=== PATIENT | male | born 1945 | race Caucasian/White ===

== ENCOUNTER 2023-08-24 11:08 | Outpatient (RCR) | payer MEDICARE, OTHER, SELFPAY | END 2023-08-24 14:15 | disposition home or self-care (01) | LOC: RPT 11:08 | PROVIDERS: ATTENDING PHYSICIAN Physician Assistant Medical; FAMILY PHYSICIAN Family Medicine | DX: I89.0 Lymphedema, not elsewhere classified (principal); C43.9 Malignant melanoma of skin, unspecified; C78.7 Secondary malignant neoplasm of liver and intrahepatic bile duct; Z92.3 Personal history of irradiation | CPT/HCPCS: 97162; 97535 ==

== ENCOUNTER 2024-01-19 08:22 | Emergency (ER) | payer MEDICARE, OTHER, SELFPAY ==
[2024-01-19 08:34] VITALS: BP 129/69
--- NOTE | 2024-01-19 08:37 | ED.PDOC.TR ---
ED Provider Triage
-
Patient seen by provider in Triage?: Seen in Triage
78 y/o male with intermittent left anterior lower leg pain since 4am. Describes sensation of pulsating pain happening every minute or so. No history of similar. No trauma. Denies color change, numbness/paresthesia, weakness/motor dysfunction or
claudication
Duplex US ordered
--- NOTE | 2024-01-19 11:21 | ED.GENMED ---
History of Present Illness
<Elsa Albarran PA-C - Last Filed: 01/19/24 13:19>
General
Chief Complaint: Extremity Pain (non-traumatic)
Source: patient
Time Seen by Provider: 01/19/24 11:19
Nursing documentation reviewed up to this point in time: agreed with
Travel History
Have you had any contact with someone who has COVID-19?: No
Do you have any symptoms of coronavirus? Fever > 100 degrees, chills, cough, shortness of breath, sore throat, loss of taste or smell, muscle aches, or headache?: No
History of Present Illness
History of Present Illness:
78-year-old male with a past medical history of melanoma 6 years in remission, hypertension, hyperlipidemia presenting emergency department today with concerns of burning to his left lateral calf that started at 4 AM this morning. Patient states
that the burning started randomly and he is feeling woke up this morning and could not get back to bed. Patient states that the pain will come and go randomly. Patient states that when it comes, it will last for few seconds and go away. Patient
states it is not worse with walking. Patient denies any numbness or tingling. Patient denies any falls. Patient denies any lightheadedness, chest pain, shortness of breath. Patient denies any swelling in his legs. Patient denies any rashes.
Patient denies any trauma to the area, patient denies any bug bites. Patient denies any long distance travel.
Past History
<Elsa Albarran PA-C - Last Filed: 01/19/24 13:19>
Past History
ED Past Medical History: Cancer (melanoma, prostate), HTN, Hypercholesterolemia, Hypothyroidism and Other (OA, adrenal insufficiency)
ED Past Surgical History: Orthopedic (Bilateral hip replacements), Urological (Radiation for prostate cancer 1997) and Other (Right chest wall as well as right arm lymph node resection for melanoma)
Social History
Tobacco: Non-smoker
Alcohol: None
Drug: None
Personal:
Living: with family
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
Family History
Family History: Other (Noncontributory)
Review of Systems
<Elsa Albarran PA-C - Last Filed: 01/19/24 13:19>
Review of Systems
All Other Systems: ROS reviewed and negative except as documented in HPI and ROS
Phy Exam
<Elsa Albarran PA-C - Last Filed: 01/19/24 13:19>
Physical Exam
Physical Exam:
General: Patient is well appearing and in no acute distress; non-toxic
Skin: Warm and dry, multiple scattered excoriations noted to bilateral extremities, patient states these are chronic
Head: Normocephalic, atraumatic
Eyes: Sclera non-icteric. EOMs intact. PERRLA.
Cardiac: Regular rate and rhythm, no murmurs
Peripheral Vascular: No lower extremity swelling or edema. No lower extremity erythema. 2+ dorsalis pedis and posterior tibial pulses b/l.
Pulm: Normal respiratory effort, no wheezes, rales, or rhonchi.
Musculoskeletal: No bony tenderness to b/l lower extremities. Full ROM of b/l lower extremities.
Neuro: CN II-XII intact, no focal neurologic deficits. 5/5 strength in b/l lower extremities.
Psychiatric: Appropriate mood and affect.
Course
<Elsa Albarran PA-C - Last Filed: 01/19/24 13:19>
Orders/Labs/Results
Orders:
Orders
01/19/24 08:39
US Periph Venous LOWER Ext Marino Urgent
Reason For Exam: LT CALF EDEMA
Vital Signs
Initial and Last Documented VS:
Initial Vital Signs
Temp Pulse Resp BP Pulse Ox
97.6 F 88 16 129/69 98
01/19/24 08:34 01/19/24 08:34 01/19/24 08:34 01/19/24 08:34 01/19/24 08:34
Last Documented Vital Signs
Temp Pulse Resp BP Pulse Ox
97.6 F 88 16 129/69 98
01/19/24 08:34 01/19/24 08:34 01/19/24 08:34 01/19/24 08:34 01/19/24 08:34
<Kirk Beckman DO - Last Filed: 01/19/24 12:06>
Orders/Labs/Results
Orders:
Orders
01/19/24 08:39
US Periph Venous LOWER Ext Marino Urgent
Reason For Exam: LT CALF EDEMA
Vital Signs
Initial and Last Documented VS:
Initial Vital Signs
Temp Pulse Resp BP Pulse Ox
97.6 F 88 16 129/69 98
01/19/24 08:34 01/19/24 08:34 01/19/24 08:34 01/19/24 08:34 01/19/24 08:34
Last Documented Vital Signs
Temp Pulse Resp BP Pulse Ox
97.6 F 88 16 129/69 98
01/19/24 08:34 01/19/24 08:34 01/19/24 08:34 01/19/24 08:34 01/19/24 08:34
<Elsa Albarran PA-C - Last Filed: 01/19/24 13:19>
MDM/Problems Addressed
Differential Diagnosis Includes:
Musculoskeletal sprain/strain, superficial phlebitis, DVT, restless leg syndrome, neuropathy
MDM/Problems Addressed:
leg pain
Chronic conditions affecting care:
prostate cancer, melanoma, HTN, HLP
<YAIMA Bhagat Last Filed: 01/19/24 13:19>
*Pulse Oximetry
Patient hypoxic: no
*Critical Care Note
Total Time (30-74mins, 75-104mins- exclusive of procedures): Not Applicable
Data Reviewed
Review of Other/Old Records Reveals: Records (reviewed ER physician documentation form 01/07/2023) and Discharge Summary (reviewed discharge summary from 01/10/2023)
Source: patient and records
<Elsa Albarran PA-C - Last Filed: 01/19/24 13:19>
Patient Management
Escalation/DeEscalation of care consider admission/obs:
78-year-old male with a past medical history of melanoma 6 years in remission, hypertension, hyperlipidemia presenting emergency department today with concerns of burning to his left lateral calf that started at 4 AM this morning. The pain will
come randomly last few seconds and go away. Patient states that there is nothing that makes it worse. Patient denies weakness of the lower extremities, claudication, rashes. DVT study negative. Will offer patient gabapentin to see if this
improves for possible restless leg syndrome or neuropathy. Patient in agreement with plan. Patient stable for discharge, patient will follow-up with his primary care provider.
ED Attending Note
<Elsa Albarran PA-C - Last Filed: 01/19/24 13:19>
-
Portions of this chart may have been created with voice recognition software.� Occasional wrong word or��sound alike� substitutions may have occurred due to the inherent limitations of voice recognition software.
<Kirk Beckman DO - Last Filed: 01/19/24 12:06>
ED Attending Note
Patient seen and examined by attending physician: Yes
I performed the substantive portion of visit, reviewed & personally made and approve the management plan that is documented in note by myself or TONA.: Yes
I performed a history and physical exam of patient and discussed management with resident, I reviewed resident's note and agree with documented findings and plan of care.: Yes
ED Attending Note:
I have seen and evaluated the patient with a [id number] encounter. I have spoken to the advance practicer provider and involved in the medical history, the physical exam, medical decision making.
Evaluation and management service: agree unless noted differently below.
Results interpretation: agree unless noted differently below.
Focused HPI: 78-year-old male presenting with intermittent burning sensation to his left lower lateral leg.
Physical exam: Sitting in bed comfortably. No tenderness to deep venous palpation. Distal extremity neurovascular intact
Medical Decision Making: Ultrasound ordered to rule out DVT. Discussed possible neuropathy. Will consider gabapentin if ultrasound negative
Discharge Plan
Departure
Patient Disposition: Home (Routine Discharge)
Date of Disposition: 01/19/24
Time of Disposition: 12:56
Patient with high blood pressure during this ER visit?: Yes
Condition: Good
Discharge Problem:
Leg pain, left
Instructions: Muscle and Bone Pain (DC), Restless Legs Syndrome (DC), BLOOD PRESSURE
Prescriptions:
New
gabapentin 100 mg capsule
100 mg PO HS Qty: 14 0RF
No Action
levothyroxine 50 mcg tablet
50 mcg PO DAILY AT 0700
hydrocortisone 10 mg tablet
20 mg PO DAILY
rosuvastatin 40 mg tablet
40 mg PO QPM
febuxostat 40 mg tablet
40 mg PO DAILY
hydrocortisone 10 mg Tablet
10 mg PO QPM
loratadine [Allerclear] 10 mg Tablet
10 mg PO DAILY
Referrals:
Ryan Peguero MD [Family Provider] -
Activity Restrictions/Additional Instructions:
We have sent a medication called gabapentin to your pharmacy. You can take one 100 mg tablet at night two hours before bedtime. You can increase dose to two tablets two hours before bedtime should you not have relief. Please follow up with your
primary care provider in one week to reassess your symptoms.
Please return to the emergency department should you develop an acute worsening of your symptoms, shortness of breath, chest pain, syncopal episodes, or any other concerning signs of symptoms.
Interventions
Interventions:
*Risk Screen - Suicide Last Done: 01/19/24 11:40
*Neglect/Abuse Screening Last Done: 01/19/24 11:40
*ED COVID-19 Vaccine History Last Done: 01/19/24 08:37
ED-Skin Assessment Last Done: 01/19/24 11:40
ED-Peripheral Vascular Assessment Last Done: 01/19/24 11:40
ED-Musculoskeletal Assessment Last Done: 01/19/24 11:40
Discharge Date and Time
Print Language: INDIAN
[2024-01-19 11:40] VITALS: BMI 30.5
[2024-01-19 13:22] VITALS: BP 138/72
== END 2024-01-19 13:23 | disposition home or self-care (01) ==
LOC: EMR 08:22
PROVIDERS: EMERGENCY PHYSICIAN Student in an Organized Health Care Education/Training Program; FAMILY PHYSICIAN Family Medicine
DX: M79.605 Pain in left leg (principal); R20.8 Other disturbances of skin sensation; Z85.820 Personal history of malignant melanoma of skin; I10 Essential (primary) hypertension; E78.00 Pure hypercholesterolemia, unspecified; Z85.46 Personal history of malignant neoplasm of prostate; E03.9 Hypothyroidism, unspecified; M19.90 Unspecified osteoarthritis, unspecified site; E27.40 Unspecified adrenocortical insufficiency; Z96.643 Presence of artificial hip joint, bilateral; Z92.3 Personal history of irradiation; Z88.5 Allergy status to narcotic agent; Z88.8 Allergy status to other drugs, medicaments and biological substances
CPT/HCPCS: 99284; 93970

== ENCOUNTER 2024-01-26 09:05 | Outpatient (RCR) | payer MEDICARE, OTHER, SELFPAY | END 2024-01-27 06:34 | disposition home or self-care (01) | LOC: RPT 09:05 | PROVIDERS: ATTENDING PHYSICIAN Internal Medicine Medical Oncology; FAMILY PHYSICIAN Family Medicine | DX: I89.0 Lymphedema, not elsewhere classified (principal); C43.9 Malignant melanoma of skin, unspecified | CPT/HCPCS: 97163; 97535 ==

== ENCOUNTER 2024-01-28 11:46 | Emergency (ER) | payer MEDICARE, OTHER, SELFPAY ==
[2024-01-28 11:58] VITALS: BP 128/75
--- NOTE | 2024-01-28 14:11 | ED.GENMED ---
History of Present Illness
General
Chief Complaint: Musculo-Skeletal Complaint
Source: patient
Exam Limitations: none
Time Seen by Provider: 01/28/24 13:39
Nursing documentation reviewed up to this point in time: agreed with
Travel History
Have you had any contact with someone who has COVID-19?: No
Do you have any symptoms of coronavirus? Fever > 100 degrees, chills, cough, shortness of breath, sore throat, loss of taste or smell, muscle aches, or headache?: No
History of Present Illness
History of Present Illness:
Patient is a 78-year-old male with history of melanoma hypertension hyperlipidemia who presented to the ER complaining of right knee pain. He reports he was standing today and he had pain behind his right knee. He denies any injury. He was seen
here last week for left leg pain.
He denies any swelling denies any back pain denies a history of sciatica.
Past History
Past History
ED Past Medical History: Cancer (melanoma, prostate), HTN, Hypercholesterolemia, Hypothyroidism and Other (OA, adrenal insufficiency)
ED Past Surgical History: Orthopedic (Bilateral hip replacements), Urological (Radiation for prostate cancer 1997) and Other (Right chest wall as well as right arm lymph node resection for melanoma)
Social History
Tobacco: Non-smoker
Alcohol: None
Drug: None
Personal:
Living: with family
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
Family History
Family History: Other (Noncontributory)
Review of Systems
Review of Systems
Allergies reviewed?: Yes
All Other Systems: ROS reviewed and negative except as documented in HPI and ROS
Constitutional: Reports no symptoms; Denies fever, fatigue or chills
Cardiac: Reports no symptoms
ABD/GI: Reports no symptoms
Musculoskeletal: Reports other (pain behind right knee )
Skin: Reports no symptoms
Psychiatric: Reports no symptoms
Phy Exam
General Physical Exam
General Presentation: no apparent distress
General age: appears stated age
General Skin: warm and dry
General Habitus: normal
General Mental: alert
General Hydration: appears well hydrated
Neurological Exam
Neurological Exam: alert and oriented x3
Musculoskeletal Exam
Musculoskeletal Exam: other (Right lower extremity strong pulses no obvious effusion but right knee appears more swollen than left however good flexion extension no calf tenderness or swelling strong distal pulses normal distal sensation)
Skin Exam
Skin Exam: normal color and warm/dry
Psychiatric Exam
Psychiatric Exam: normal mood/affect
Course
Orders/Labs/Results
Orders:
Orders
01/28/24 12:02
US Legs, Right [US Periph Venous LOWER Ext RT] Urgent
Comment:
Reason For Exam: pain
01/28/24 12:04
Knee, Right 4 or More Views [CR Knee- Right 4 Or More View*] Urgent
Comment:
Reason For Exam: pain
Vital Signs
Initial and Last Documented VS:
Initial Vital Signs
Temp Pulse Resp BP Pulse Ox
98.4 F 87 16 128/75 97
01/28/24 11:58 01/28/24 11:58 01/28/24 11:58 01/28/24 11:58 01/28/24 11:58
Last Documented Vital Signs
Temp Pulse Resp BP Pulse Ox
98.4 F 87 16 128/75 97
01/28/24 11:58 01/28/24 11:58 01/28/24 11:58 01/28/24 11:58 01/28/24 11:58
MDM/Problems Addressed
Differential Diagnosis Includes:
Not limited to knee pain, DVT, arthritis
MDM/Problems Addressed:
Patient has severe osteoarthritic changes in right knee from prior knee film. no acute ultrasound findings. patient in no acute distress likely arthritis will dc with outpt ortho f/u . pt has cane . Stable with weight bearing.
Chronic conditions affecting care:
arthritis
*Radiology
Radiology exam reviewed: radiology read reviewed
*Pulse Oximetry
Patient hypoxic: no
*Critical Care Note
Total Time (30-74mins, 75-104mins- exclusive of procedures): Not Applicable
ED Attending Note
-
Portions of this chart may have been created with voice recognition software.� Occasional wrong word or��sound alike� substitutions may have occurred due to the inherent limitations of voice recognition software.
Discharge Plan
Departure
Patient Disposition: Home (Routine Discharge)
Date of Disposition: 01/28/24
Time of Disposition: 15:46
Patient with high blood pressure during this ER visit?: No
Covid-19: Not Applicable
Discharge Problem:
knee pain, Arthritis
Instructions: Knee Pain ED
Prescriptions:
No Action
levothyroxine 50 mcg tablet
50 mcg PO DAILY AT 0700
hydrocortisone 10 mg tablet
20 mg PO DAILY
rosuvastatin 40 mg tablet
40 mg PO QPM
febuxostat 40 mg tablet
40 mg PO DAILY
hydrocortisone 10 mg Tablet
10 mg PO QPM
loratadine [Allerclear] 10 mg Tablet
10 mg PO DAILY
gabapentin 100 mg capsule
100 mg PO HS Qty: 14 0RF
Referrals:
Ryan Peguero MD [Family Provider] -
Han Sin MD [Active] -
Activity Restrictions/Additional Instructions:
Tylenol for discomfort. Follow-up with orthopedics as discussed and return if any worsening of symptoms.
Interventions
Interventions:
*ED COVID-19 Vaccine History Last Done: 01/28/24 11:58
Discharge Date and Time
Print Language: ROMANIAN
== END 2024-01-28 16:26 | disposition home or self-care (01) ==
LOC: EMR 11:46
PROVIDERS: EMERGENCY PHYSICIAN Emergency Medicine; FAMILY PHYSICIAN Family Medicine
DX: M79.604 Pain in right leg (principal); M17.11 Unilateral primary osteoarthritis, right knee; I10 Essential (primary) hypertension; E78.5 Hyperlipidemia, unspecified; E27.40 Unspecified adrenocortical insufficiency; Z85.820 Personal history of malignant melanoma of skin; Z85.46 Personal history of malignant neoplasm of prostate; Z92.3 Personal history of irradiation
CPT/HCPCS: 99284; 73564; 93971

== ENCOUNTER 2024-04-11 11:08 | Outpatient (RCR) | payer MEDICARE, OTHER, SELFPAY | END 2024-04-11 23:59 | disposition home or self-care (01) | LOC: RPT 11:08 | PROVIDERS: ATTENDING PHYSICIAN Internal Medicine Medical Oncology; FAMILY PHYSICIAN Family Medicine | DX: I89.0 Lymphedema, not elsewhere classified (principal) | CPT/HCPCS: 97161; 97535; 97760 ==

== ENCOUNTER 2024-05-20 23:00 | Emergency (ER) | payer MEDICARE, OTHER, SELFPAY ==
[2024-05-20 23:09] VITALS: BP 90/68; BMI 29.8
[2024-05-20 23:18] VITALS: BP 96/68
[2024-05-20] MEDS: NSS 1000 IV (23:22)
[2024-05-20 23:29] LABS: % Basophils 0.9 % (0-2); % Immature Granulocytes 1.1 % (0-0.5); % Lymphocytes 27.6 % (20.5-51.1); % Monocytes 11.1 % (1.7-9.3); % Neutrophils 55.3 % (42.2-75.2); Absolute Basophils 0.1 10^3/uL (0-0.2); Absolute Eosinophils 0.3 10^3/uL (0-0.7); Absolute Immature Granulocytes 0.1 10^3/uL (0-0.05); Absolute Lymphocytes 2.2 10^3/uL (1.2-3.4); Absolute Monocytes 0.9 10^3/uL (0.1-0.6); Absolute Neutrophils 4.4 10^3/uL (1.4-6.5); Hematocrit 42.9 % (39.0-52.0); Hemoglobin 14.8 g/dL (13.0-18.0); Mean Corp Hgb Conc. 34.5 g/dL (33.0-37.0); Mean Corpuscular Hgb 30.3 pg (27.0-31.0); Mean Corpuscular Volume 87.7 fL (80.0-94.0); Mean Platelet Volume 8.1 fL (7.4-10.4); Nucleated Red Blood Cells % 0 % (-); Platelet Count 187 10^3/uL (130-400); Red Blood Cell Count 4.89 10^6/uL (4.70-6.10); Red Cell Dist. Width 14.3 % (11.5-14.5); White Blood Cell Count 7.9 10^3/uL (4.8-10.8)
[2024-05-20] MEDS: CORDARONE 103 MG IV (23:31)
[2024-05-20 23:38] VITALS: BP 87/60
[2024-05-20 23:45] LABS: AST (SGOT) 31 U/L (17-59); Albumin 4.5 g/dl (3.5-5.0); Alkaline Phosphatase 93 U/L (38-126); Blood Urea Nitrogen 11 mg/dl (9-20); Carbon Dioxide 15 mmol/L (22-30); Chloride 100 mmol/L (98-107); Estimated Creatinine Clearance 51 ml/min; Glucose 131 mg/dl (70-99); Potassium 3.7 mmol/L (3.5-5.1); Sodium 133 mmol/L (135-145); Total Bilirubin 0.5 mg/dl (0.2-1.3); Total Protein 6.5 g/dl (6.3-8.2); eGFR 55.88
[2024-05-20 23:49] LABS: INR 1.07; PT 13.7 Sec (11.4-14.6); Troponin I 0.016 ng/ml
[2024-05-20 23:50] LABS: APTT 31.3 Sec (23.4-35.0)
[2024-05-20 23:56] LABS: ALT (SGPT) 20 U/L (0-50); Calcium 9.4 mg/dl (8.4-10.2)
[2024-05-21] VITALS (15 sets, daily range): BP systolic 83–118; BP diastolic 56–86
--- NOTE | 2024-05-21 01:22 | ED.GENMED ---
History of Present Illness
General
Chief Complaint: Dizziness
Time Seen by Provider: 05/20/24 23:08
Past History
Past History
ED Past Medical History: Cancer (melanoma, prostate), HTN, Hypercholesterolemia, Hypothyroidism and Other (OA, adrenal insufficiency)
ED Past Surgical History: Orthopedic (Bilateral hip replacements), Urological (Radiation for prostate cancer 1997) and Other (Right chest wall as well as right arm lymph node resection for melanoma)
Social History
Tobacco: Non-smoker
Alcohol: None
Drug: None
Personal:
Living: with family
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
Family History
Family History: Other (Noncontributory)
Course
Orders/Labs/Results
Orders:
Orders
05/20/24 23:01
Electrocardiogram (*1) Urgent
Reason for Study: Fatigue / Weakness
EKG- Treatment ONCE
05/20/24 23:15
Cardiac Monitoring- Treatment ONCE
0.9% Sodium Chloride 1000 ml [Nss] 1,000 ml IV BOLUS
05/20/24 23:20
Complete Blood Count/With Diff Urgent
Comprehensive Metabolic Panel Urgent
PTT Urgent
Prothrombin Time Urgent
Troponin I Urgent
05/20/24 23:25
Amiodarone [Cordarone] 150 mg Dextrose 5%/Water 100 ml [D5w] 100 ml IV NOW
05/21/24 00:01
CT Chest Pe Study Urgent
Reason For Exam: tachy, hx of lung ca
05/21/24 00:30
Amiodarone [Cordarone] 900 mg DEXTROSE 5% PVC-free BAG [D5W PVC-free BAG] 500 ml IV PER PROTOCOL
Initial Dose in mg/min:: 1
Duration of initial dose (hours):: 6
Subsequent dose in mg/min:: 0.5
Duration of subsequent dose (hours):: 18
Maximum dose in mg/min:: 1
Hold and notify provider if:: Heart rate < 60 BPM or SBP < 90 mmHg or MAP < 60 mmHg
05/21/24 01:27
Electrocardiogram (*1) Urgent
Reason for Study: Palpitations
EKG- Treatment ONCE
05/21/24 01:30
Diltiazem HCl [Cardizem] 20 mg IV NOW STA
Diltiazem HCl [Cardizem] 25 mg .ROUTE .STK-MED ONE
05/21/24 01:35
Propofol [Diprivan] 20 ml .ROUTE .STK-MED
Abnormal Lab Results
05/20/24
23:20
Abs Immat Gran (auto) 0.1 H 10^3/uL
(0-0.05)
Absolute Monos (auto) 0.9 H 10^3/uL
(0.1-0.6)
Immature Gran % 1.1 H %
(0-0.5)
Monocytes % 11.1 H %
(1.7-9.3)
Sodium 133 L mmol/L
(135-145)
Carbon Dioxide 15 L mmol/L
(22-30)
Glucose 131 H mg/dl
(70-99)
05/20/24 23:20
05/20/24 23:20
Vital Signs
Initial and Last Documented VS:
Initial Vital Signs
Temp Pulse Resp BP Pulse Ox
97.5 F 175 18 90/68 99
05/20/24 23:09 05/20/24 23:09 05/20/24 23:09 05/20/24 23:09 05/20/24 23:09
Last Documented Vital Signs
Temp Pulse Resp BP Pulse Ox
97.5 F 77 18 92/56 92
05/20/24 23:09 05/21/24 02:00 05/21/24 02:00 05/21/24 02:00 05/21/24 02:00
Procedures
Moderate Sedation
ASA Risk Score: Class I
Chart and allergies reviewed: Yes
Consent for anesthesia obtained: Yes
Time out completed (validating right patient & procedure): Yes
Moderate Sedation Start Time(when first medication is given): :49
History of difficult intubation: No
Airway free of obstruction: Yes
Patient has a gag reflex: Yes
Patient is able to open mouth: Yes
Patient has no dentures: Yes
Patient has no loose teeth: Yes
Medication administered by Provider during Moderate Sedation: IV Propofol (mg)
Total dose administered: 50
Time drug administered: :49
Moderate Sedation Procedure End Time: 02:03
Cardioversion
Indication:: Afib
Performed by:: Myself
Synchronized?: Yes
Energy Used: 200 joules
Number of attempts: 1
Successful?: Yes
*Critical Care Note
Total Time (30-74mins, 75-104mins- exclusive of procedures): 40
comment:
Critical care statement: A total of 40 minutes of critical care time was provided for this patient. This time is separate from time utilized to perform the aforementioned documented procedures. Aggregate critical care time includes only time
during which I was engaged in work directly related to the patient's care, as described above, whether at the bedside or elsewhere in the Emergency Department.
Update Note
Update Note:
Diagnostic Imaging Report
SignedOrder #:[id number]
Exams: CT Chest Pe Study
INDICATION: Chest pain
Scanning parameters: CT arteriography of the chest with intravenous contrast material was obtained. 3-D reconstructed coronal imaging of the chest was performed as well. Automated exposure control was used.
Comparison examination: Chest x-ray 11/22/2016, thoracic spine plain film exam 02/23/2022
FINDINGS:
There is no pulmonary embolism.
There is no aortic dissection.
There is no pneumothorax.
There are no abnormal pleural or parenchymal masses.
There is no pleural effusion.
There is no significant parenchymal airspace disease.
The mediastinum is normal.
There is no hilar or mediastinal lymphadenopathy.
There is no axillary lymphadenopathy.
There is mild lingular, right lower lobe and right upper lobe atelectasis versus scarring.
The osseous structures show mild degenerative disease. There is a moderate mid thoracic spine compression fracture which is stable. There is evidence of previous vertebroplasty of probable L1 andL2 which also have moderate compression fractures.
IMPRESSION: No acute disease of the chest. No evidence of pulmonary embolus.
Just prior to cardioversion patient had atrial fibrillation with rapid ventricular response rate of 161. Left axis deviation left bundle branch block.
After cardioversion, EKG shows sinus rhythm rate 81 with normal intervals, left axis deviation. No evidence of acute ischemia present. He does have a first-degree AV block with a MS interval of 266 ms.
ED Attending Note
-
Portions of this chart may have been created with voice recognition software.� Occasional wrong word or��sound alike� substitutions may have occurred due to the inherent limitations of voice recognition software.
Discharge Plan
Departure
Patient with high blood pressure during this ER visit?: Yes
Condition: Good
Discharge Problem:
Atrial fibrillation with rapid ventricular response
Instructions: Atrial Fibrillation (DC), MODERATE SEDATION ADULT, BLOOD PRESSURE
Prescriptions:
New
Eliquis 5 mg tablet
5 mg PO BID Qty: 30 0RF
No Action
levothyroxine 50 mcg tablet
50 mcg PO DAILY AT 0700
hydrocortisone 10 mg tablet
15 mg PO DAILY
rosuvastatin 40 mg tablet
40 mg PO DAILY
febuxostat 40 mg tablet
40 mg PO DAILY
hydrocortisone 10 mg Tablet
5 mg PO QPM
loratadine [Allerclear] 10 mg Tablet
10 mg PO DAILY
Referrals:
Ryan Peguero MD [Family Provider] -
Tone Garcia MD [Active] - Next open appointment
Activity Restrictions/Additional Instructions:
It was a pleasure meeting you and taking part in your care. We hope for your continued healing and wellness.
Please read discharge instructions in their entirety. However, they are for general education and may not describe your exact diagnosis at discharge. Information on your ER visit and medical conditions were discussed with you along with appropriate
follow up information...
If indicated, please take your medications as instructed and indicated on discharge paperwork.
Please schedule a follow up appointment as directed. Call to schedule an appointment
Please return to the emergency department with ANY change in, persisting, or worsening of symptoms. If any of your symptoms do not improve, or persist, or become more severe within 6-12 hours, please return to the emergency department for further
care.
Please return to the emergency department if you develop a headache, neck pain/stiffness, fever greater than 100.4F, chest pain, shortness of breath, persistent nausea, vomiting, slurred speech, difficulty walking, numbness/tingling, weakness, signs
of infection or any other symptoms that are worrisome to you.
If you have any questions or concerns please do not hesitate to call the Hospital at or E-mail me directly at [email or web address]
Interventions
Interventions:
*Risk Screen - Suicide Last Done: 05/20/24 23:09
*General Assessment Last Done: 05/20/24 23:09
*Neglect/Abuse Screening Last Done: 05/20/24 23:09
ED- Fall Risk Assessment Last Done: 05/20/24 23:42
*ED COVID-19 Vaccine History Last Done: 05/20/24 23:42
ED- Neurological Assessment Last Done: 05/20/24 23:42
ED- Cardiac Assessment Last Done: 05/20/24 23:42
ED Swallowing Screen Last Done: 05/20/24 23:42
Discharge Date and Time
Print Language: MALAWIAN
[2024-05-21] MEDS: ELIQUIS 5 MG PO (02:32)
== END 2024-05-21 03:48 | disposition home or self-care (01) ==
LOC: EMR 23:00
PROVIDERS: EMERGENCY PHYSICIAN Student in an Organized Health Care Education/Training Program; FAMILY PHYSICIAN Family Medicine
DX: I48.91 Unspecified atrial fibrillation (principal); I10 Essential (primary) hypertension
CPT/HCPCS: 92960; 99291; 96374; 96361; 99152; 71275; 80053; 84484; 85025; 85610; 85730; 93005; Q9967

== ENCOUNTER → 2024-06-07 08:54 | Outpatient (REF) | payer MEDICARE, OTHER, SELFPAY ==
--- NOTE | 2024-06-07 10:25 | CARDSERVLU ---
Echocardiogram with Lumason completed after protocol screening completed. Allergies verified.
Patent IV site: __left post FA__
IV site flushed with 0.9% NaCl pre and post administration.
Diluted bolus method utilized to enhance visualization of ventricular ramirez.
Total volume given: 6.0____ mL
Patient tolerated all procedures well without complications.
== END ==
LOC: RCS 08:54
PROVIDERS: ATTENDING PHYSICIAN Nurse Practitioner; FAMILY PHYSICIAN Family Medicine; REFERRING PHYSICIAN Internal Medicine Cardiovascular Disease
DX: I48.0 Paroxysmal atrial fibrillation (principal)
CPT/HCPCS: 93306; Q9950

== ENCOUNTER 2025-01-28 08:53 | Emergency (ER) | payer MEDICARE, OTHER, SELFPAY ==
[2025-01-28 08:56] VITALS: BP 125/77
--- NOTE | 2025-01-28 09:40 | ED.MUSCINJ ---
HPI-Injury
General
Chief Complaint: Musculo-Skeletal Complaint
Source: patient
Exam Limitations: none
Time Seen by Provider: 01/28/25 09:18
History of Present Illness-Injury
Initial Injury comments:
The patient is an 79-year-old male with a history of total hip arthroplasty 30 years ago and is a cancer survivor. Approximately six weeks ago, the patient began experiencing pain in the right knee which was initially drained by the chore worker
with minimal fluid obtained. Pain has since migrated from the knee to the groin and now involves the previously replaced hip. The patient describes the pain as significant, especially when bearing weight, and is currently managed with acetaminophen.
The patient expressed concern about taking hydrocodone with acetaminophen due to concurrent acetaminophen use. Recent X-rays show calcification in the knee and hip, consistent with his age and medical history. The patient reports no fever but
expresses constant thirst and a dry mouth. The patient has a history of gout and is on long-term hydrocortisone therapy. . The patient is also on blood thinners, specifically apixaban (Eliquis).The patient has undergone X-rays at [facility]
urgent care two weeks prior, indicating calcifications but no acute fracture or dislocation. No back pain rash or fever.
Past History
Past History
ED Past Medical History: Cancer (melanoma, prostate), HTN, Hypercholesterolemia, Hypothyroidism and Other (OA, adrenal insufficiency)
ED Past Surgical History: Orthopedic (Bilateral hip replacements), Urological (Radiation for prostate cancer 1997) and Other (Right chest wall as well as right arm lymph node resection for melanoma)
Social History
Tobacco: Non-smoker
Alcohol: None
Drug: None
Personal:
Living: with family
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
Family History
Family History: Other (Noncontributory)
Phy Exam
Physical Exam
Physical Exam:
General: Well-appearing male no acute respiratory distress
HEENT normocephalic atraumatic
Musculoskeletal exam: Right hip with good range of motion. His leg is nontender to palpation over the groin thigh and knee. The right knee is without effusion. Good range of motion. No deformities
Skin is warm no rash
Vascular: 2+ DP pulse right foot
MDM/Problems Addressed
Differential Diagnosis Includes:
Right knee and hip pain. Concern for worsening underlying degenerative change. No back pain to suggest radiculopathy. No to suggest rash. He has good pulses to the foot do not suspect it is a vascular issue. Anticoagulated on Eliquis and he is
limited with anti-inflammatories. Will do a burst of prednisone over the next several days with trial of tramadol for pain and advise he follow-up with the orthopedic team. No indication for any further imaging. He recently had x-rays done as an
outpatient.
*Critical Care Note
Total Time (30-74mins, 75-104mins- exclusive of procedures): Not Applicable
ED Attending Note
-
Portions of this chart may have been created with voice recognition software.� Occasional wrong word or��sound alike� substitutions may have occurred due to the inherent limitations of voice recognition software.
Discharge Plan
Departure
Patient Disposition: Home (Routine Discharge)
Date of Disposition: 01/28/25
Time of Disposition: 09:44
Patient with high blood pressure during this ER visit?: No
Discharge Problem:
Acute leg pain
Instructions: Muscle and Bone Pain (DC)
Prescriptions:
New
tramadol 50 mg tablet
50 mg PO Q6H PRN (Reason: Pain) Qty: 14 0RF
prednisone 20 mg tablet
40 mg PO DAILY 5 Days Qty: 10 0RF
No Action
levothyroxine 50 mcg tablet
50 mcg PO DAILY AT 0700
hydrocortisone 10 mg tablet
15 mg PO DAILY
rosuvastatin 40 mg tablet
40 mg PO DAILY
febuxostat 40 mg tablet
40 mg PO DAILY
hydrocortisone 10 mg Tablet
5 mg PO QPM
loratadine [Allerclear] 10 mg Tablet
10 mg PO DAILY
Eliquis 5 mg tablet
5 mg PO BID Qty: 30 0RF
Activity Restrictions/Additional Instructions:
Take prescribed medicine as directed. Follow-up with your orthopedic doctor. Return if worse otherwise
Interventions
Interventions:
*Risk Screen - Suicide Last Done: 01/28/25 08:56
*General Assessment Last Done: 01/28/25 08:56
*Neglect/Abuse Screening Last Done: 01/28/25 08:56
Discharge Date and Time
Print Language: MALAY
== END 2025-01-28 10:16 | disposition home or self-care (01) ==
LOC: EMR 08:53
PROVIDERS: EMERGENCY PHYSICIAN Emergency Medicine; FAMILY PHYSICIAN Family Medicine
DX: M25.561 Pain in right knee (principal); I10 Essential (primary) hypertension; E78.00 Pure hypercholesterolemia, unspecified; E03.9 Hypothyroidism, unspecified; M19.90 Unspecified osteoarthritis, unspecified site; E27.40 Unspecified adrenocortical insufficiency; Z79.01 Long term (current) use of anticoagulants; Z85.820 Personal history of malignant melanoma of skin; Z96.643 Presence of artificial hip joint, bilateral
CPT/HCPCS: 99282

== ENCOUNTER → 2025-02-12 12:54 | Outpatient (REF) | payer MEDICARE, OTHER, SELFPAY | LOC: RAD 12:54 | PROVIDERS: ATTENDING PHYSICIAN Physician Assistant Medical; FAMILY PHYSICIAN Family Medicine; REFERRING PHYSICIAN Internal Medicine Cardiovascular Disease | DX: C43.9 Malignant melanoma of skin, unspecified (principal) | CPT/HCPCS: 71250; 74176 ==

== ENCOUNTER 2025-02-25 07:21 | Inpatient (IN) | payer MEDICARE, OTHER, SELFPAY ==
[2025-02-25] VITALS (11 sets, daily range): BP systolic 109–158; BP diastolic 57–81; BMI 27.8; BMI 26.8
[2025-02-25 04:27] LABS: Hematocrit 38.6 % (39.0-52.0); Hemoglobin 13.5 g/dL (13.0-18.0); Mean Corp Hgb Conc. 35.0 g/dL (33.0-37.0); Mean Corpuscular Volume 95.8 fL (80.0-94.0); Nucleated Red Blood Cells % 0 % (-); Platelet Count 96 10^3/uL (130-400); Red Cell Dist. Width 17.8 % (11.5-14.5)
[2025-02-25 04:47] LABS: ALT (SGPT) 35 U/L (0-50); AST (SGOT) 49 U/L (17-59); Albumin 3.6 g/dl (3.5-5.0); Alkaline Phosphatase 73 U/L (38-126); Blood Urea Nitrogen 18 mg/dl (9-20); Calcium 9.0 mg/dl (8.4-10.2); Carbon Dioxide 16 mmol/L (22-30); Chloride 108 mmol/L (98-107); Estimated Creatinine Clearance 54 ml/min; Glucose 95 mg/dl (70-99); Potassium 4.1 mmol/L (3.5-5.1); Sodium 132 mmol/L (135-145); Total Protein 5.7 g/dl (6.3-8.2); eGFR > 60.00
[2025-02-25 04:55] LABS: Troponin I 0.033 ng/ml
--- NOTE | 2025-02-25 05:55 | ED.GENMED ---
History of Present Illness
General
Chief Complaint: Breathing Problem
Source: patient, ambulance crew and previous hospital records
Exam Limitations: none
Time Seen by Provider: 02/25/25 05:27
Nursing documentation reviewed up to this point in time: agreed with
History of Present Illness
History of Present Illness:
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 Had been maintained on Opdivo which was discontinued 8 years ago and
thus far has had no recurrence.
Routine surveillance CT chest abdomen pelvis February 12 shows stable chronic findings.
He has history of paroxysmal A-fib, presented to this ED May 2024, underwent cardioversion to normal sinus rhythm and started on Eliquis.
Patient states since tarting Eliquis he has not been feeling well. Intermittent shortness of breath. He has been following with multiple specialist including his fitness management director, Dr. Garcia, PCP as well as other specialist and thus far no definitive
diagnosis nor improvement.
He does note some easy bruisability and he decided to discontinue his Eliquis 2 weeks ago.
Overall fatigue and shortness of breath has not improved however over the past 2 days he has had marked generalized weakness, fatigue and some increased shortness of breath more so with activity.
Symptoms worsened tonight and he called 911. Upon EMS arrival noted to be moderately hypoxic with pulse ox in the 80s. Placed on 4 L nasal cannula.
Patient denies cough, no sore throat, no abdominal pain or chest pain, no palpitations but he does note generalized aches, generalized weakness. No falls.
He has also noticed some drainage from his right forearm and was evaluated at urgent care. Tegaderm was placed over draining area of his lymphedemic right forearm.
Past History
Past History
ED Past Medical History: Arrthythmia (PAF May 2024), Cancer (melanoma, prostate), HTN, Hypercholesterolemia, Hypothyroidism and Other (OA, adrenal insufficiency)
ED Past Surgical History: Orthopedic (Bilateral hip replacements), Urological (Radiation for prostate cancer 1997) and Other (Right chest wall as well as right arm lymph node resection for melanoma)
Social History
Tobacco: Non-smoker
Alcohol: None
Drug: None
Personal:
Living: with family
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
Family History
Family History: Other (Noncontributory)
Phy Exam
Physical Exam
Physical Exam:
GENERAL: 79-year-old gentleman appears his stated age, awake and alert, pleasant, appears in no acute distress. Low-grade fever noted. No cough appreciated. No respiratory distress. [address] cannula in place.
EYE: pupils equal and reactive. anicteric
NECK: Supple, nontender, no meningismus, no significant adenopathy.
ENT: posterior pharynx is clear, oral mucosa is moist. TM clear b/l, nares patent.
CARDIAC: Regular rate and rhythm. no murmur.
LUNGS: Scantly decreased breath sounds at bases, no acute respiratory distress, no wheezes/rales/rhonchi
ABDOMEN: Rotund, soft, nondistended, without focal tenderness, no r/g, no cvat. normoactive BS.
NEUROLOGICAL: Alert and oriented x3, no focal neuro deficits. Motor strength is 5/5 bilaterally. Gross sensation is intact.
SKIN: Warm and dry, normal color, few ecchymotic patches bilateral lower extremities. Global lymphedema of right upper extremity with very superficial linear ulceration dorsal proximal forearm with exudative discharge and there is marked global
erythema of the forearm and soft tissue swelling that extends to the dorsal hand. The right forearm and dorsal hand are markedly warm to touch and mildly tender to palpation. There is no palpable abscess nor pustules.
MUSCULOSKELETAL: Lymphedema right upper extremity as above. Peripheral pulses are full and equal b/l. Mild tenderness about the right forearm.
PSYCH: Normal and appropriate interaction.
Scores
Heart Failure Risk
Heart Failure Risk Score: Yes
History of Stroke or TIA: No
History of intubation for respiratory distress: No
Heart rate on ED arrival >/= 110: No
SaO2 <90% on arrival on room air: No
HR >/=110 during 3min walk test (or too ill to perform test): Yes
ECG has acute ischemic changes: No
Urea >/=12mmol/L (BUN 33.6mg/dL): No
Serum CO2>/=35mmol/L: No
Troponin I or T elevated to PA Level (0.4mg/dL): No
NT-proBNP >/=5,000ng/L (5,000pg/ml): No
HF Risk Score: 2
Admission Status: MEDIUM RISK 9.2% Consider observation or discharge to home with homecare & f/u visit to PCP/Tank Wagon Driver, or SNF for treatment
Sepsis
Sepsis Screening
Sepsis Assessment: Sepsis Ruled Out
Sepsis Screen
Sepsis Screen: Sepsis Ruled Out
Date: 02/25/25
Time: 08:12
Course
Orders/Labs/Results
Orders:
Orders
02/25/25 04:03
Electrocardiogram (*1) Urgent
Reason for Study: Shortness of Breath
EKG- Treatment ONCE
02/25/25 04:05
Complete Blood Count/With Diff Urgent
Comprehensive Metabolic Panel Urgent
Creatine Phosphokinase Urgent
Comment: ADD ON
NT-proBNP Urgent
Comment: ADD ON
Troponin I Urgent
02/25/25 04:16
CR Chest - 2 Views Urgent
Comment:
Reason For Exam: sob
02/25/25 04:29
Add On- LAB Urgent
Tests Added?: pro-BNP
02/25/25 04:34
Lactate Level [Lactic Acid] Urgent
02/25/25 05:34
COVID-19 Antigen Urgent
Source: Nasal Swab
Influenza A+B Rapid Molecular Urgent
EZEQUIEL Source: Nasal Swab
Specimen Description:
02/25/25 05:48
Piperacillin/Tazo 3.375 Gram [Zosyn] 3.375 gram in 50 ml IV NOW
02/25/25 05:57
Blood Culture Q30M
EZEQUIEL Source: Blood/Venous
Specimen Description:
Blood Culture Q30M
EZEQUIEL Source: Blood/Venous
Specimen Description:
Wound Culture [Wound/Abscess/Other Culture] Urgent
EZEQUIEL Source: Arm
Specimen Description: Right
Date Specimen was Collected: 02/25/25
Time Specimen was Collected: 05:51
02/25/25 06:37
Admit/Transfer Patient As Directed
Co-Sign Provider:
Level of Care: Inpatient admission
Assign to:: Telemetry
Physician / Group: Nacho
Diagnosis: Cellulitis, Sepsis
Reason for Telemetry: Arrhythmia
Date to Stop Telemetry: 02/28/25
Time to Stop Telemetry: 11:00
Reason for Hospitalization: Cellulitis, Sepsis
Expected length of stay greater than two midnights?: Yes
ELOS- Estimated Length of Stay in days: 3
I certify the patient meets the requirements for IP care: Yes
PRN Pain Medication Management As Directed
May give lesser potent ordered pain med per pt: Yes
preference::
Protocol:: Medication orders for pain may be administered in a
manner that supports deferring to patient preference
when the pt is:
- Requesting an ordered lesser potent pain medication.
Least to most potent pain medications are defined
as: acetaminophen < NSAID < tramadol < opioids
(morphine, oxycodone, hydromorphone).
- Requesting a lesser dose of the same medication IF
ORDERED.
- Requesting a less intrusive route of administration
if both routes are prescribed by the provider (PO <
IV).
02/25/25 06:38
Code Status As Directed
Resuscitation Status: Full Code
02/25/25 06:43
Add On- LAB Urgent
Tests Added?: CPK
02/25/25 06:54
Nm Lung Scan Vent/Perf Routine
Reason For Exam: Hypoxemia, Chest Pain
CR Chest - 4 or More Views Routine
Comment:
Reason For Exam: Hypoxemia, Chest Pain
02/25/25 07:12
Enoxaparin Sodium [Lovenox] 90 mg SC NOW STA
02/25/25 08:00
Flush (0.9% Sodium Chloride) [Flush (Nss)] See Dose Instructions IV PER PROTOCOL
02/28/25 11:00
DC Protocol for Telemetry ONCE
Abnormal Lab Results
02/25/25
04:05
RBC 4.03 L 10^6/uL
(4.70-6.10)
Hct 38.6 L %
(39.0-52.0)
MCV 95.8 H fL
(80.0-94.0)
MCH 33.5 H pg
(27.0-31.0)
RDW 17.8 H %
(11.5-14.5)
Plt Count 96 L 10^3/uL
(130-400)
Abs Immat Gran (auto) 0.1 H 10^3/uL
(0-0.05)
Absolute Neuts (auto) 7.9 H 10^3/uL
(1.4-6.5)
Absolute Monos (auto) 0.7 H 10^3/uL
(0.1-0.6)
Immature Gran % 1.2 H %
(0-0.5)
Lymphocytes % 15.5 L %
(20.5-51.1)
Sodium 132 L mmol/L
(135-145)
Chloride 108 H mmol/L
(98-107)
Carbon Dioxide 16 L mmol/L
(22-30)
Total Bilirubin 1.9 H mg/dl
(0.2-1.3)
Total Protein 5.7 L g/dl
(6.3-8.2)
02/25/25 04:05
02/25/25 04:05
Vital Signs
Initial and Last Documented VS:
Initial Vital Signs
Temp Pulse Resp BP Pulse Ox
99.9 F 103 16 131/58 95
02/25/25 04:06 02/25/25 04:06 02/25/25 04:06 02/25/25 04:06 02/25/25 04:06
Last Documented Vital Signs
Temp Pulse Resp BP Pulse Ox
97.9 F 80 20 133/62 98
02/25/25 06:22 02/25/25 07:10 02/25/25 07:10 02/25/25 07:10 02/25/25 07:10
MDM/Problems Addressed
Differential Diagnosis Includes:
Patient presents with somewhat chronic shortness of breath ongoing for a number of months with increased fatigue and generalized weakness over the past 2 days.
Noted to have low-grade fever that I suspect is source of his fatigue and weakness.
I highly suspect source of fever is right forearm cellulitis. With shortness of breath must consider pneumonia, COPD, CHF, COVID, influenza.
No prior history of CHF nor prior history of COPD nor COPD exacerbations.
Unremarkable echocardiogram May 2024 showing normal EF.
He did recently discontinue Eliquis however no history of DVT/thromboembolism. Was placed on Eliquis for stroke prevention due to PAF. PE is unlikely. Unremarkable PE study May 2024.
CT of the chest most recently February 12 showing no acute lung findings.
Will check labs, lactic acid, blood cultures, BNP, COVID and flu testing, will check chest x-ray
Chronic conditions affecting care: HTN, Arrhythmia and Cancer (Prior history of malignant melanoma-patient reports remission for the past 8 years. Unremarkable surveillance CTs February 12 of this year.)
*Radiology
Radiology exam reviewed: preliminary read by ED provider (Chest x-ray shows mild scarring at bases overall similar to previous.)
*Pulse Oximetry
SaO2: 95
Nasal Cannula flow liters per minute: 2
Patient hypoxic: no
*EKG
Interpreted by ED Provider?: Yes
Comparison EKG: no changes
Rate: tachycardiac (Mild sinus tachycardia 101)
Rhythm: sinus
[place]: left axis deviation
Interval: normal interval
QRS Pattern: poor R-wave progression
Ischemia: non-specific ST changes
*Lipstick Molder Interpretation
Rate: normal
Interpretation: normal
Rhythm: sinus
*Critical Care Note
Total Time (30-74mins, 75-104mins- exclusive of procedures): Not Applicable
Update Note
Update Note:
Labs show normal white blood cell count, normal H&H but moderate thrombocytopenia with platelet count of 96 which is new compared to previous.
Chemistries show mild acidosis, similar to previous. Creatinine of 1.2 has improved from previous.
Lactic acid is normal at 1.6.
BNP of 700, not consistent with CHF. Normal troponin.
IV Zosyn has been initiated for cellulitis right upper extremity. Wound culture has been obtained. No prior history of MRSA.
Will admit to hospitalist service.
ED Attending Note
-
Portions of this chart may have been created with voice recognition software.� Occasional wrong word or��sound alike� substitutions may have occurred due to the inherent limitations of voice recognition software.
Discharge Plan
Departure
Patient Disposition: Admit
Date of Disposition: 02/25/25
Time of Disposition: 05:55
Admit to: Med/Surg
Admit to doctor: Nacho
Presentation/result/management discussed w/ accepting MD/DO: Hospitalist
Condition: Fair
Discharge Problem:
Cellulitis of arm, right, acute thrombocytopenia, Fever, r/o sepsis, Chronic breathlessness
Interventions
Interventions:
*Risk Screen - Suicide Last Done: 02/25/25 04:06
*General Assessment Last Done: 02/25/25 04:06
*Neglect/Abuse Screening Last Done: 02/25/25 04:06
*ED- Fall Risk Assessment Last Done: 02/25/25 04:13
*ED COVID-19 Vaccine History Last Done: 02/25/25 04:13
ED- Cardiac Assessment Last Done: 02/25/25 07:10
ED- Pulmonary Assessment Last Done: 02/25/25 07:10
[2025-02-25 06:02] LABS: COVID-19 Antigen Negative (Negative)
[2025-02-25] MEDS: ZOSYN 50 IV (06:05)
--- NOTE | 2025-02-25 06:45 | HPS.HSE ---
Family Physician
-
Family Physician: Ryan Peguero
Chief Complaint
-
Weakness, chest discomfort, SOB
History of Present Illness
Patient is an 79y M with PMH significant for melanoma, prostate cancer, A-Fib and adrenal insufficiency who presents to ED complaining of generalized weakness, SOB / CERRATO and bilateral chest discomfort. Patient states that he has not felt well
since he initially was diagnosed with A-Fib / started taking Eliquis in 05/2024. He has had multiple issues since that time including R retinal detachment, diffuse bruising, increased fatigue and shortness of breath. Patient states that he has
been more weak over the past 2-3 days. He has been using a walker at home for ambulation - which is new for him. He feels very SOB with activity. He complains of discomfort in the lateral aspects of the chest bilaterally - worse with deep
breathing. No significant cough. No fevers / chills.
He also reports poor appetite, constipation and difficulty urinating. No dysuria, hematuria, black or bloody stools. No N/V/D.
Patient notes that he stopped his Eliquis about 3 weeks ago as he attributes many of his issues to beginning that medication.
He also had recent change / adjustment in his hydrocortisone dosing. He was placed on prednisone for knee pain and held his hydrocortisone during that time. He has since completed the prednisone course and is now on hydrocortisone 10mg in the AM
and 5mg in the afternoon.
He denies any other recent medication changes.
He just completed a CT C/A/P on 02/12 for follow-up of his melanoma and this was relatively unremarkable / no acute findings.
In the ED today, patient is noted to have erythematous and indurated RUE. He states that he had not noted this previously.
Medical History
Past Medical History
Past Medical History: Reports Other
Additional Past Medical History:
Malignant Melanoma s/p resection, immunotherapy, XRT
Prostate Cancer s/p XRT
Paroxysmal Atrial Fibrillation s/p DCCV (05/2024)
Hypertension
Hypothyroidism
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
History of DVT RUE
Gout
Past Surgical History: Reports Other
Additional Past Surgical History:
Melanoma Excisions (Chest, Back, RUE, R axillary LN dissection)
Bilateral GURPREET
DCCV
Eye Surgery (2 retina surgeries - 07/2024 and 08/2024)
Social History
Tobacco: Non-smoker
Alcohol: None
Drug: None
Family History
Family History: Other (Father: Esophageal Cancer)
Allergies / Home Medications
Allergies reflects when Allergies were last updated in [employer].
Home Medications with original date entered in [employer]
Allergy/Medication List:
Allergies
Allergy/AdvReac Type Severity Reaction Status Date / Time
allopurinol Allergy Unknown Verified 01/28/25 08:59
colchicine Allergy Unknown Verified 01/28/25 08:59
doxycycline Allergy Unknown Verified 01/28/25 08:59
morphine Allergy Itching Verified 01/28/25 08:59
IV contrast Allergy Itching Uncoded 01/28/25 08:59
Home Medications
febuxostat 40 mg tablet 40 mg PO DAILY Hyperuricemia 01/07/23
levothyroxine 50 mcg tablet 50 mcg PO DAILY AT 0700 Thyroid 01/07/23
rosuvastatin 40 mg tablet 40 mg PO DAILY High Cholesterol 01/07/23
amlodipine 5 mg tablet 5 mg PO DAILY 02/25/25
hydrocortisone 5 mg tablet 5 mg PO QPM 02/25/25
hydrocortisone 5 mg tablet 10 mg PO DAILY 02/25/25
Review of Systems
-
History Source: Patient
A 12 point ROS was completed and negative except as noted: Yes
Constitutional: Reports Fatigue; Denies Fever or Chills
EENT: Denies Sore Throat or Runny Nose
Respiratory: Reports Trouble Breathing; Denies Cough or Hemoptysis
Cardiac: Reports Chest Pain; Denies Diaphoresis, Palpitations or Syncope
Abdomen/GI: Reports Constipated and Anorexia; Denies Abdominal Pain, Nausea, Vomiting, Diarrhea, Bloody Stools or Black Stools
: Reports Difficulty Voiding; Denies Dysuria, Frequency, Flank Pain, Bleeding or Dark Urine
Musculoskeletal: Reports Edema (RUE); Denies Joint Pain
Skin: Reports Other (Scattered bruising.)
Neurological: Denies Dizzy or Headache
Psych: Denies Depression or Anxiety
Physical Exam
Vital Signs
Vital Signs
Temp Pulse Resp BP Pulse Ox
97.9 F 92 20 131/58 96
02/25/25 06:22 02/25/25 06:30 02/25/25 06:30 02/25/25 06:00 02/25/25 06:30
Physical Exam
General: Other (79y M in no acute distress.)
HEENT: Other (Thick neck. MMM. R eyelid sutured closed. No discharge.)
Respiratory: Other (Decreased BS at bases - otherwise clear.)
Cardiac: S1/S2, Regular Rhythm and Murmur (II/ ABBEY)
GI: Soft, Non Tender, Non Distended and Normal Bowel Sounds
Musculoskeletal: No Clubbing, No Cyanosis and Other (2+ edema RUE. Erythema, increased warmth and induration of medial aspect of the RUE from mid humerus to the hand. Pos tenderness. No fluctuance.)
Neuro: AO x 3
Laboratory Results
-
02/25/25 04:05
02/25/25 04:05
Laboratory Results
Lactic Acid 1.6 mmol/L (0.7-2.0) 02/25/25 04:34
Total Bilirubin 1.9 mg/dl (0.2-1.3) H 02/25/25 04:05
AST 49 U/L (17-59) 02/25/25 04:05
ALT 35 U/L (0-50) 02/25/25 04:05
Alkaline Phosphatase 73 U/L (38-126) 02/25/25 04:05
Troponin I 0.033 ng/ml 02/25/25 04:05
Impression/Plan
-
A/P: Patient is an 79y M with PMH significant for malignant melanoma, adrenal insufficiency and paroxysmal atrial fibrillation who presents to ED complaining of chest discomfort, SOB and general fatigue.
RUE Cellulitis
Sepsis secondary to the above
- Admit for further evaluation and treatment.
- Patient presents with tachycardia, tachypnea - borderline leukocytosis and temperature - and evidence of RUE cellulitis.
- IV abx with Ancef for now.
- IVF support, antipyretics, pain control, etc.
- Follow for clinical improvement.
Hypoxemia
Chest Pain
Paroxysmal Atrial Fibrillation
- Patient with SpO2 in the 80s for EMS and requiring supplemental O2 here in the ED.
- Complains of bilateral chest discomfort.
- Prior h/o RUE DVT (s/p surgery / lymph node dissection / etc) and stopped his Eliquis 3 weeks ago.
- Dose of Lovenox now.
- V/Q scan to rule out PE (patient allergic to IV dye).
- Check Echo.
- Patient reports symptoms started 05/2024 and blames Eliquis - but this is also when his A-Fib started / was diagnosed.
- In NSR at present. Outpatient notes suggest no significant A-Fib burden appreciated on Kardia evaluations.
Non-Gapped Metabolic Acidosis
- Unclear etiology. Anion gap = 8.
- IVF support / sepsis treatment as noted above.
- Follow labs / lytes for changes.
Adrenal Insufficiency
- Complaints of general weakness, gait issues, etc potentially due to relative adrenal insufficiency.
- Increase AM dose of hydrocortisone back to 15mg for now (his dose during prior hospital stay). Continue 5mg PM dose.
- Follow BP, labs / lytes, etc for any evidence of persistent adrenal insufficiency.
- Pulse dose steroids if any evidence of decompensation.
Benign Hypertension
- Stable. Continue amlodipine with holding parameters.
Hypothyroidism
- Continue current T4 supplementation.
- Update TFTs.
Right Retina Detachment
- Followed previously at [facility] but now followed locally (recent change).
- On multiple eye drips which he will have family bring in to him today.
- Sutures remain in place in the R eyelids.
History of Malignancy Melanoma
History of Prostate Cancer
- Recent CT showed no evidence of recurrence.
- s/p axillary LN dissection on the R which predisposes to cellulitis, lymphedema, etc.
DVT Prophylaxis
History of RUE DVT
- Therapeutic dose of Lovenox x 1 in the ED.
- Follow-up results of V/Q, echo, etc as noted above.
- Therapeutic v prophylactic anticoagulation following those studies.
Code Status: Full
--- NOTE | 2025-02-25 06:58 | PTCARENOTE ---
Pt oob to br, insistent to walk to bathroom, refused to use urinal at the bedside. Pt oob to br, extremely sob, pox 80% on RA. placed on 2L NC. made aware.
[2025-02-25] MEDS: LOVENOX 90 MG SC (07:52)
--- NOTE | 2025-02-25 09:05 | CM ---
CM reviewed chart and met with pt bedside in ED. Lives with his Significant other Marlee in 2 story home, no BRENDA.
Home has stair glide and shower rails, pt has shower chair. Pt is independent in ADLs, personal care and ambulation at baseline.
Recently has been using rolling walker for ambulation, also has SPC.
Pt [facility] with [facility] and has been to [facility] in the past, years ago per pt.
PCP: Ryan De La Cruz
Pharmacy: [facility] [address] [place]
CM will continue to follow for discharge planning issues.
[2025-02-25] MEDS: CRESTOR 40 MG PO (10:41)
[2025-02-25] MEDS: CORTEF 15 MG PO (10:41)
[2025-02-25] MEDS: NSS 1000 IV (10:42)
[2025-02-25] MEDS: NORVASC 10 MG PO (10:42)
[2025-02-25] MEDS: SYNTHROID 50 MCG PO (10:42)
[2025-02-25 11:00] LABS: Troponin I 0.030 ng/ml
[2025-02-25] MEDS: BENADRYL 50 MG IV (11:26)
[2025-02-25] MEDS: NSS (PRESERVATIVE FREE) 10 ML IV (11:28)
[2025-02-25] MEDS: PROTONIX IV 40 MG IV (11:28)
[2025-02-25] MEDS: ANCEF 10 IV ×2 (11:31→21:06)
--- NOTE | 2025-02-25 11:32 | W.PN.UPDATE ---
Addendum entered and electronically signed by Silverio Busch MD 02/25/25 14:36:
Daughter updated over the phone
Original Note:
Update Note
Progress Note Update
Patient seen and examined at bedside. Nonbillable note
RUE Cellulitis
Sepsis secondary to the above
- Patient presents with tachycardia, tachypnea - borderline leukocytosis and temperature - and evidence of RUE cellulitis.
- IV abx with Ancef for now.
- IVF support, antipyretics, pain control, etc.
- Follow for clinical improvement.
Hypoxemia
Chest Pain
Paroxysmal Atrial Fibrillation
Acute hypoxic respiratory insufficiency
Wean oxygen as tolerated
- Complains of bilateral chest discomfort. No
- Prior h/o RUE DVT (s/p surgery / lymph node dissection / etc) and stopped his Eliquis 3 weeks ago.
Dose of Lovenox given on admission
Discussed with patient, has itching due to iodine
Will order CT chest PE as he has tolerated that before. Prepped with steroids and Benadryl
- Check Echo.
- Patient reports symptoms started 05/2024 and blames Eliquis - but this is also when his A-Fib started / was diagnosed.
- In NSR at present. Outpatient notes suggest no significant A-Fib burden appreciated on Kardia evaluations.
Outpatient bell CT with dilation of ascending aorta, 4.1 cm. In the bilateral lower lobes there are mild changes of fibrosis along with dependent aspect of the lungs with associated mild clinical bronchiectasis changes. Also findings of possible
COPD.
Trial of DuoNeb, Pulmicort. If symptoms do not improve then will get pulmonary evaluation. Likely will need cardiology evaluation as well.
Paroxysmal atrial fibrillation
Stopped Eliquis weeks ago on his own
Currently normal sinus rhythm
Non-Gapped Metabolic Acidosis
- Unclear etiology. Anion gap = 8.
- IVF support / sepsis treatment as noted above.
- Follow labs / lytes for changes.
Adrenal Insufficiency
- Complaints of general weakness, gait issues, etc potentially due to relative adrenal insufficiency.
- Increase AM dose of hydrocortisone back to 15mg for now (his dose during prior hospital stay). Continue 5mg PM dose.
- Follow BP, labs / lytes, etc for any evidence of persistent adrenal insufficiency.
- Pulse dose steroids if any evidence of decompensation.
Benign Hypertension
- Stable. Continue amlodipine with holding parameters.
Hyponatremia
Monitor
Hypothyroidism
- Continue current T4 supplementation.
TSH 3.4
Right Retina Detachment
- Followed previously at [facility] but now followed locally (recent change).
- On multiple eye drips which he will have family bring in to him today.
- Sutures remain in place in the R eyelids.
History of Malignancy Melanoma
History of Prostate Cancer
- Recent CT showed no evidence of recurrence.
- s/p axillary LN dissection on the R which predisposes to cellulitis, lymphedema, etc.
DVT Prophylaxis
History of RUE DVT
- Therapeutic dose of Lovenox x 1 in the ED.
- Check CT chest PE
- Therapeutic v prophylactic anticoagulation following those studies.
Code Status: Full
[2025-02-25] MEDS: SOLU-CORTEF 200 MG IV (11:55)
[2025-02-25] MEDS: PULMICORT INH (13:09)
--- NOTE | 2025-02-25 13:41 | VATNOTE ---
Vat rounds: Patient with pre hospital site. Patient is limited to left arm only. Left phs redressed as per policy. will leave in for now for ct scan per MD's order.
[2025-02-25] MEDS: OCUFLOX 1 DROP RIGHT EYE ×3 (14:11→21:06)
[2025-02-25] MEDS: DUONEB INH (15:15)
--- NOTE | 2025-02-25 15:27 | CON.PUL ---
Consultation
Consultation Request
Date/Time Consultation Requested: 02/25/25
Date/Time Consultation Performed: 02/25/25
Performing Provider: Joana
Reason for Consultation: SOB
Medical History
-
History of Present Illness:
Patient is an 79-year-old male with previous history of prostate cancer, A-fib, adrenal insufficiency presented to ER for generalized weakness and shortness of breath. He states symptoms have been ongoing since May 2024 when he started
taking Eliquis for A-fib. He has had increasing fatigue, shortness of breath, chest discomfort with progressive weakness and decreased appetite over the past 2 to 3 days.
He is noted to have hypoxemia during this admission placed on [address] obtained indicating significant bronchiectasis with possible underlying ILD. Radiographic changes have been present dating back to 2012 but have been steadily
worsening. He has never formally been diagnosed with any lung disease and has never seen outpatient pulmonary.
Lifelong nonsmoker, denies exposure history, family history of lung disease.
Has been following [facility] with history of malignant melanoma that reportedly involved lung but was considered in remission about 10 years ago per .
Past Medical History
Past Medical History: Other (see list below)
Past Surgical History: None
Social History
Tobacco: Non-smoker
Alcohol: None
Drug: None
Family History
Family History: Reviewed & Not Pertinent
Allergies / Home Medications
Allergies
Allergy/AdvReac Type Severity Reaction Status Date / Time
allopurinol Allergy Unknown Verified 01/28/25 08:59
colchicine Allergy Unknown Verified 01/28/25 08:59
doxycycline Allergy Unknown Verified 01/28/25 08:59
morphine Allergy Itching Verified 01/28/25 08:59
IV contrast Allergy Itching Uncoded 01/28/25 08:59
Home Medications
�Medication �Instructions �Recorded �Confirmed �Last Taken �Type
febuxostat 40 mg tablet 40 mg PO DAILY Hyperuricemia 01/07/23 02/25/25 01/07/23 History
levothyroxine 50 mcg tablet 50 mcg PO DAILY AT 0700 Thyroid 01/07/23 02/25/25 01/07/23 History
rosuvastatin 40 mg tablet 40 mg PO DAILY High Cholesterol 01/07/23 02/25/25 Unknown History
acetaminophen 325 mg tablet 650 mg PO Q4HPRN PRN MILD PAIN 02/25/25 02/25/25 Unknown History
(Tylenol)
amlodipine 10 mg tablet (Norvasc) 10 mg PO DAILY 02/25/25 02/25/25 Unknown History
cenegermin-bkbj 0.002 % eye drops 1 drp ophthalmic (eye) 6XD 02/25/25 02/25/25 02/24/25 History
(Oxervate)
hydrocortisone 5 mg tablet 5 mg PO QPM 02/25/25 02/25/25 Unknown History
hydrocortisone 5 mg tablet 10 mg PO DAILY 02/25/25 02/25/25 Unknown History
ofloxacin 0.3 % eye drops 1 drp RIGHT EYE Q4H 02/25/25 02/25/25 Unknown History
Review of Systems
-
History Source: Patient
All other systems: Negative unless noted
Vitals / Labs / Diagnostic Testing
Vital Signs
Temp Pulse Resp BP Pulse Ox
98.3 F 96 24 152/78 94
02/25/25 15:18 02/25/25 15:18 02/25/25 15:18 02/25/25 15:18 02/25/25 15:18
Lab Data
02/25/25 04:05
02/25/25 04:05
Microbiology
02/25/25 05:57 Arm - Right Gram Stain - Preliminary
02/25/25 05:34 Nasal Swab Influenza Types A & B (IMELDA) - Final
Negative for Influenza A & B, NAAT
Negative results must be combined with clinical observations
and patient history.
Nucleic Acid Amplification test (NAAT)performed on the
[employer] platform.
Diagnostic Testing:
Physical Exam
-
HEENT: Normocephalic, Anicteric and Moist Mucous Membranes
Cardiovascular: S1/S2 and Regular Rhythm
Respiratory: Clear and Non-Labored Respirations
GI: Soft, Non Distended and Non Tender
Neurology: Awake, Alert, Oriented and No Motor Deficits
Skin: Warm, Dry and Other (bruising)
General: Comfortable and Other (NAD)
Assessment
-
Patient is an 79-year-old male with previous history of prostate cancer, A-fib, adrenal insufficiency presented to ER for generalized weakness and shortness of breath. He states symptoms have been ongoing since May 2024 when he started
taking Eliquis for A-fib. He has had increasing fatigue, shortness of breath, chest discomfort with progressive weakness and decreased appetite over the past 2 to 3 days.
He is noted to have hypoxemia during this admission placed on [address] obtained indicating significant bronchiectasis with possible underlying ILD. Radiographic changes have been present dating back to 2012 but have been steadily
worsening. We are consulted for eval 02/25/25.
Acute hypoxic respiratory failure
Abnormal CT, possible ILD
SOB
Generalized weakness
RUE cellulitis
Non-Gapped Metabolic Acidosis
Hyponatremia, mild
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
Adrenal Insufficiency
Alcohol abuse
Chronic renal insufficiency, stage II (mild)
Essential (primary) hypertension
History of Malignant Melanoma
History of Prostate Cancer
RUE DVT
Thoracic aortic ectasia
Mixed hyperlipidemia
Sleep apnea
Atrial tachycardia
Paroxysmal Atrial Fibrillation on Eliquis
Hypothyroidism
Right Retina Detachment
Plan
Hypoxemia noted, he is placed on 3L NC
Home O2 evaluation eventually
Prior history of lung disease is NOT noted -- He has never formally been diagnosed with any lung disease and has never seen outpatient pulmonary.
Lifelong nonsmoker, denies exposure history, family history of lung disease.
Has been following [facility] with history of malignant melanoma that reportedly involved lung but was considered in remission about 10 years ago per .
Suspect patient has underlying ILD but findings on CT are not consistent wtih UIP (lack of reticular findings and honeycombing)
He has extensive traction and cylindrical bronchiectasis on CT --progressive on subsequent CTs since 2012
Less likely related to underlying melanoma if this was considered treated at [facility], unclear if they were/are aware of lung findings
Prior ECHO results are reviewed indicating no history of heart disease
Eval for chest discomfort ongoing, follows with Dr Garcia
He feels this is related to Eliquis
Will obtain baseline PFT testing while here to evaluate ILD/RLD, SOB
Will need outpatient pulmonary evaluation in our office for PFTs and 6MWT
Reviewed with patient and at bedside
Risk factors assessed for underlying sleep disordered breathing also noted, recommend outpatient PSG/sleep evaluation
We will follow
Diagnostic Data
Chest X-Ray: 02/25/25- No acute cardiopulmonary process.
CT Scan: CHEST 02/25/25- No evidence of central pulmonary embolism. Some mild chronic interstitial changes again seen bilaterally, predominantly in the lower lobes. Superimposed mild prominence of the interstitium and minor widespread bilateral
groundglass opacification, nonspecific, possibly representing acute pulmonary edematous changes. Stable mild aneurysmal dilatation of the ascending thoracic aorta at 4.1 cm.
Echo: 06/07/24- Normal left ventricular size, wall thickness and systolic function. No regional wall motion abnormalities are seen. LV ejection fraction is 53% by Cabrales's biplane method of discs. Normal diastolic function. Normal right ventricular
size and function. Mitral annular calcification. Mild mitral regurgitation. Aortic sclerosis without stenosis. Dilated aortic root measuring 4.3 cm at the sinuses of Valsalva; 3.9 cm at the sinotubular junction and 4.1 cm in the ascending aorta.
Compared to the previous echo 01/31/24, there is no significant change.
PFT's:
Reports and relevant images were personally reviewed.
Total time spent on this consultation __76__ minutes which includes review of history, physical exam, medications, laboratory data, personal review of imaging, extensive review of outpatient records, discussion with care team and respiratory therapy.
--- NOTE | 2025-02-25 15:39 | CARDSERVLU ---
Echocardiogram with Lumason completed after protocol screening completed. Allergies verified.
Patent IV site: LFA (existing)
IV site flushed with 0.9% NaCl pre and post administration.
Diluted bolus method utilized to enhance visualization of ventricular ramirez.
Total volume given: 3 mL
Patient tolerated all procedures well without complications.
[2025-02-25] MEDS: NON-FORMULARY ITEM 1 DROP OPHTH ×3 (16:15→21:06)
[2025-02-25 16:51] LABS: Troponin I 0.035 ng/ml
[2025-02-25] MEDS: CORTEF 5 MG PO (17:28)
[2025-02-25] MEDS: DUONEB 3 ML INH (19:14)
[2025-02-25] MEDS: PULMICORT 0.5 MG INH (19:14)
[2025-02-25] MEDS: DESENEX/MITRAZOL/ZEASORB 1 APPLIC TOPICAL (21:05)
[2025-02-25] MEDS: TYLENOL 650 MG PO (21:15)
[2025-02-25 22:34] LABS: Troponin I < 0.012 ng/ml
[2025-02-26] VITALS (8 sets, daily range): BP systolic 102–149; BP diastolic 60–82; PULSE 92; BMI 26.9
[2025-02-26] MEDS: OCUFLOX RIGHT EYE ×2 (00:57→01:22)
[2025-02-26] MEDS: NSS 1000 IV (00:58)
[2025-02-26] MEDS: ANCEF 10 IV ×2 (05:07→12:23)
[2025-02-26] MEDS: NON-FORMULARY ITEM 1 DROP OPHTH ×6 (05:07→21:07)
[2025-02-26] MEDS: SYNTHROID 50 MCG PO (05:07)
[2025-02-26] MEDS: OCUFLOX 1 DROP RIGHT EYE ×5 (05:08→21:07)
[2025-02-26 06:09] LABS: Hematocrit 36.0 % (39.0-52.0); Hemoglobin 12.5 g/dL (13.0-18.0); Mean Corp Hgb Conc. 34.7 g/dL (33.0-37.0); Mean Corpuscular Volume 95.7 fL (80.0-94.0); Nucleated Red Blood Cells % 0 % (-); Platelet Count 101 10^3/uL (130-400); Red Cell Dist. Width 17.2 % (11.5-14.5)
[2025-02-26 06:41] LABS: Blood Urea Nitrogen 20 mg/dl (9-20); Calcium 8.3 mg/dl (8.4-10.2); Carbon Dioxide 16 mmol/L (22-30); Chloride 112 mmol/L (98-107); Estimated Creatinine Clearance 65 ml/min; Glucose 101 mg/dl (70-99); Potassium 3.4 mmol/L (3.5-5.1); Sodium 137 mmol/L (135-145); eGFR > 60.00
[2025-02-26] MEDS: DUONEB 3 ML INH (07:20)
[2025-02-26] MEDS: PULMICORT 0.5 MG INH (07:23)
[2025-02-26] MEDS: NSS (PRESERVATIVE FREE) 10 ML IV (08:53)
[2025-02-26] MEDS: PROTONIX IV 40 MG IV (08:53)
[2025-02-26] MEDS: CORTEF 15 MG PO (08:54)
[2025-02-26] MEDS: NORVASC 10 MG PO (08:54)
[2025-02-26] MEDS: CRESTOR 40 MG PO (08:55)
[2025-02-26] MEDS: DESENEX/MITRAZOL/ZEASORB 1 APPLIC TOPICAL ×2 (08:58→21:16)
[2025-02-26] MEDS: KCL 40 MEQ PO (09:07)
--- NOTE | 2025-02-26 09:31 | W.PN.PUL3 ---
Today's Communication / Plan
-
PFT showing mild restriction and severe diffusion impairment, likely to need home O2 set up
Home o2 eval to confirms needs
Change PPI to Pepcid for GERD
Change nebs to inhalers to continue at home
PT eval for discharge needs
Reviewed plan of care with patient and at bedside
OP FU recommended
Assessment
-
Patient is an 79-year-old male with previous history of prostate cancer, A-fib, adrenal insufficiency presented to ER for generalized weakness and shortness of breath. He states symptoms have been ongoing since May 2024 when he started
taking Eliquis for A-fib. He has had increasing fatigue, shortness of breath, chest discomfort with progressive weakness and decreased appetite over the past 2 to 3 days.
He is noted to have hypoxemia during this admission placed on [address] obtained indicating significant bronchiectasis with possible underlying ILD. Radiographic changes have been present dating back to 2012 but have been steadily
worsening. We are consulted for eval 02/25/25.
Acute hypoxic respiratory failure
Abnormal CT, possible ILD
SOB
Generalized weakness
RUE cellulitis
Non-Gapped Metabolic Acidosis
Hyponatremia, mild
Suspect GERD/heartburn as a cause for chest discomfort
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
Adrenal Insufficiency
Alcohol abuse
Chronic renal insufficiency, stage II (mild)
Essential (primary) hypertension
History of Malignant Melanoma
History of Prostate Cancer
RUE DVT
Thoracic aortic ectasia
Mixed hyperlipidemia
Sleep apnea
Atrial tachycardia
Paroxysmal Atrial Fibrillation on Eliquis
Hypothyroidism
Right Retina Detachment
Plan
Hypoxemia noted, he is placed on 3L NC
Home O2 evaluation today w/ possible home set up
Prior history of lung disease is NOT noted -- He has never formally been diagnosed with any lung disease and has never seen outpatient pulmonary.
Lifelong nonsmoker, denies exposure history, family history of lung disease.
Has been following [facility] with history of malignant melanoma that reportedly involved lung but was considered in remission about 10 years ago per .
Suspect patient has underlying ILD but findings on CT are not consistent wt UIP (lack of reticular findings and honeycombing)
He has extensive traction and cylindrical bronchiectasis on CT --progressive on subsequent CTs since 2012
Less likely related to underlying melanoma if this was considered treated at [facility], unclear if they were/are aware of lung findings
Prior ECHO results are reviewed indicating no history of heart disease
Eval for chest discomfort ongoing, follows with Dr Garcia
He feels this is related to Eliquis
I suspect GERD/reflux--he notes phlegm production with meals, chest discomfort that improves with Tums, pain in his midsection with meals
Will change his PPI to pepcid so he may go home on this med
Will obtain baseline PFT testing while here to evaluate ILD/RLD, SOB
Results reviewed, mild restriction, severe diffusion impairment--he will likely need O2 set up at home
I will change his nebs to inhalers that he can continue at home
Will need outpatient pulmonary evaluation in our office for PFTs and 6MWT
Reviewed with patient and at bedside
Risk factors assessed for underlying sleep disordered breathing also noted, recommend outpatient PSG/sleep evaluation
He does not wish to have a sleep study
Discharge planning pending PT evals
Diagnostic Data
Chest X-Ray: 02/25/25- No acute cardiopulmonary process.
CT Scan: CHEST 02/25/25- No evidence of central pulmonary embolism. Some mild chronic interstitial changes again seen bilaterally, predominantly in the lower lobes. Superimposed mild prominence of the interstitium and minor widespread bilateral
ground-glass opacification, nonspecific, possibly representing acute pulmonary edematous changes. Stable mild aneurysmal dilatation of the ascending thoracic aorta at 4.1 cm.
Echo: 06/07/24- Normal left ventricular size, wall thickness and systolic function. No regional wall motion abnormalities are seen. LV ejection fraction is 53% by Cabrales's biplane method of discs. Normal diastolic function. Normal right ventricular
size and function. Mitral annular calcification. Mild mitral regurgitation. Aortic sclerosis without stenosis. Dilated aortic root measuring 4.3 cm at the sinuses of Valsalva; 3.9 cm at the sinotubular junction and 4.1 cm in the ascending aorta.
Compared to the previous echo 01/31/24, there is no significant change.
PFT 02/26/25: FEV1 2.28L 75%, FVC 2.69L 65%, ratio 85. Post FEV1 2.31L 76%, no BD response. TLC 5.79L 77%, DLCO 22% (mild restriction, severe diffusion impairment)
Reports and relevant images were personally reviewed.
Total time spent on this consultation __56__ minutes which includes review of history, physical exam, medications, laboratory data, personal review of imaging, extensive review of outpatient records, discussion with care team and respiratory therapy.
Subjective Data
-
Date of Service:
Date of Service: February 26, 2025
Chief Complaint: Pulmonary Follow Up
Objective Data
Data Reviewed
Vital Signs / I&O / Oxygen:
Vital Signs
Temp Pulse Resp BP Pulse Ox
97.8 F 75 18 134/68 94
02/26/25 07:06 02/26/25 07:20 02/26/25 07:20 02/26/25 07:06 02/26/25 07:20
Intake and Output
02/25/25 02/26/25 02/27/25
06:59 06:59 06:59
Intake Total 1200 / 1200
Output Total 1250 / 1250
Balance -50 / -50
SaO2 94
Nasal Cannula flow liters per 2
minute
Labs/Micro/Reports
Lab Data
02/26/25 05:33
02/26/25 05:33
Microbiology
02/25/25 05:57 Blood/Venous Blood Culture - Preliminary
No Growth in 24 hours- Final report to follow
02/25/25 05:57 Blood/Venous Blood Culture - Preliminary
No Growth in 24 hours- Final report to follow
02/25/25 05:57 Arm - Right Gram Stain - Preliminary
02/25/25 05:34 Nasal Swab Influenza Types A & B (IMELDA) - Final
Negative for Influenza A & B, NAAT
Negative results must be combined with clinical observations
and patient history.
Nucleic Acid Amplification test (NAAT)performed on the
[employer] platform.
[2025-02-26] MEDS: DUONEB INH (11:01)
--- NOTE | 2025-02-26 11:51 | W.PN.HOSP.TC ---
Today's Communication/Plan
-
Monitor vital signs see plan
Wean oxygen as tolerated
PFTs
cardiology evaluation
Continue antibiotics
Replete potassium
Assessment / Plan
Assessment / Plan
RUE Cellulitis
Sepsis secondary to the above
- Patient presents with tachycardia, tachypnea - borderline leukocytosis and temperature - and evidence of RUE cellulitis.
- IV abx with Ancef for now.
- IVF support, antipyretics, pain control, etc.
- Follow for clinical improvement.
Hypoxemia
Chest Pain
Paroxysmal Atrial Fibrillation
Acute hypoxic respiratory insufficiency
Wean oxygen as tolerated
- Complains of bilateral chest discomfort. No
- Prior h/o RUE DVT (s/p surgery / lymph node dissection / etc) and stopped his Eliquis 3 weeks ago.
Dose of Lovenox given on admission in ED
Discussed with patient, has itching due to iodine
Will order CT chest PE as he has tolerated that before. Prepped with steroids and Benadryl
- Check Echo.
- Patient reports symptoms started 05/2024 and blames Eliquis - but this is also when his A-Fib started / was diagnosed.
- In NSR at present. Outpatient notes suggest no significant A-Fib burden appreciated on Kardia evaluations.
Outpatient bell CT with dilation of ascending aorta, 4.1 cm. In the bilateral lower lobes there are mild changes of fibrosis along with dependent aspect of the lungs with associated mild clinical bronchiectasis changes.
Trial of DuoNeb, Pulmicort. Pulmonary following. PFTs 02/26, likely will need cardiology evaluation as well if symptoms dont improve.
Paroxysmal atrial fibrillation
Stopped Eliquis weeks ago on his own
Currently normal sinus rhythm; intermittent SVT
Echo 02/25 with no significant change from previous echocardiogram.
Non-Gapped Metabolic Acidosis
- Unclear etiology
- IVF support / sepsis treatment as noted above.
- Follow labs / lytes for changes.
Hypokalemia
Replete
Adrenal Insufficiency
- Complaints of general weakness, gait issues, etc potentially due to relative adrenal insufficiency.
- Increase AM dose of hydrocortisone back to 15mg for now (his dose during prior hospital stay). Continue 5mg PM dose.
- Follow BP, labs / lytes, etc for any evidence of persistent adrenal insufficiency.
- Pulse dose steroids if any evidence of decompensation.
Benign Hypertension
- Stable. Continue amlodipine with holding parameters.
Hyponatremia
Monitor
Hypothyroidism
- Continue current T4 supplementation.
TSH 3.4
Right Retina Detachment
- Followed previously at [facility] but now followed locally (recent change).
- On multiple eye drips which he will have family bring in to him today.
- Sutures remain in place in the R eyelids.
History of Malignancy Melanoma
History of Prostate Cancer
- Recent CT showed no evidence of recurrence.
- s/p axillary LN dissection on the R which predisposes to cellulitis, lymphedema, etc.
DVT Prophylaxis
History of RUE DVT
lovenox
Code Status: Full
General: Other (79y M in no acute distress.)
HEENT: Other (Thick neck. MMM. R eyelid sutured closed. No discharge.)
Respiratory: Other (Decreased BS at bases - otherwise clear.)
Cardiac: S1/S2, Regular Rhythm and Murmur (II/ ABBEY)
GI: Soft, Non Tender, Non Distended and Normal Bowel Sounds
Musculoskeletal: Other (2+ edema RUE. Erythema, increased warmth and induration of medial aspect of the RUE from mid humerus to the hand. Pos tenderness. No fluctuance.)
Neuro: AO x 3
I spent a total of 52 minutes with the patient or on the floor. More than 50% of this time involved counseling and coordination of care.
Anticipated Discharge: 24 - 48 hours
Subjective/Interval History
-
Date of Service: February 26, 2025
Continues to require oxygen
Objective Data
-
Labs:
Laboratory Results
02/26/25
05:33
WBC 10.9 H
Hgb 12.5 L
Hct 36.0 L
Plt Count 101 L
Sodium 137
Potassium 3.4 L
Chloride 112 H
Carbon Dioxide 16 L
BUN 20
Creatinine 1.0
Glucose 101 H
Calcium 8.3 L
Vital Signs:
Vital Signs
Temp Pulse Resp BP Pulse Ox
97.8 F 75 18 134/68 94
02/26/25 07:06 02/26/25 07:20 02/26/25 07:20 02/26/25 07:06 02/26/25 08:30
I&O
02/25/25 02/26/25 02/27/25
06:59 06:59 06:59
Intake Total 1200 / 1200
Output Total 1250 / 1250
Balance -50 / -50
--- NOTE | 2025-02-26 14:13 | CM ---
PT was unable to participate in PT.
PT eval needed for dc planning .
Currently on 2 liters O2 POx 94%.
Pulmonary involved
IV antibiotics.
PLAN Need PT eval for dc planning Watch of home oxygen need.
[2025-02-26] MEDS: ZOSYN 50 IV ×2 (14:35→21:07)
--- NOTE | 2025-02-26 15:32 | CON.CAR ---
Addendum entered and electronically signed by Tone Garcia MD 02/26/25 16:39:
I saw and examined the patient.
The RESEARCH ANIMAL FACILITY SUPERVISOR or PA's note was reviewed and I agree with the note.
Comment: General: Well developed, well nourished in NAD.
Neck: Supple, no JVD, HJR, carotids +2 B/L, no bruits bilaterally.
Heart: Non displaced PMI, RRR, no murmurs, No S3, S4, no rubs.
Lungs: Scattered rhonchi
Extremities: No clubbing, cyanosis or edema bilaterally.
Neuro: Grossly nonfocal, awake, alert and oriented x3.
Rudi has a history of A-fib, malignant melanoma, chronic right upper extremity lymphedema, sleep apnea, renal insufficiency, sleep apnea. He had issues with fatigue and bruising since starting Eliquis for A-fib and stopped Eliquis on his own. He
was admitted with weakness fatigue as well as shortness of breath and was noted to be hypoxic by EMS and placed on 4 L of oxygen. He is also treated for cellulitis. Cardiology is consulted for shortness of breath. He is found to have CHF as well
as interstitial lung disease. Will continue IV Lasix. Telemetry with episodes of atrial tachycardia and nonsustained V. tach. Will try beta-maura although he has stopped medications in the past. He does not want to go on Eliquis but might
consider Xarelto. May consider eventual outpatient stress testing which he has declined on multiple occasions.
Original Note:
Consultation
Consultation Request
Date/Time Consultation Performed: 02/26/25
Requesting Provider: Dr. Busch
Performing Provider: Rosa Orr PA-C for Dr. Garcia
Reason for Consultation: concern for CHF
Medical History
-
Chief Complaint: weak, dizzy
History of Present Illness:
Patient is an 79-year-old male with past medical history of paroxysmal atrial fibrillation diagnosed May 2024 who has had issues with fatigue and bruising since starting anticoagulation. He had stopped beta-maura initially due to symptoms
without improvement. He then stopped Eliquis and reports was not willing to restart. He now presents to the emergency room due to complaints of weakness dizziness, fatigue, as well as some dyspnea on exertion. Upon EMS arrival was noted to be
hypoxic and placed on 4 L nasal cannula. He had drainage from his right forearm and is being treated for cellulitis. Cardiology consulted due to concern for multifactorial dyspnea in part pulmonary related, however in part related to acute CHF.
proBNP pending at this time. He reports he has noted at home that his heart rates at times are up in the 120s.
PMH:
Paroxysmal atrial fibrillation/atrial tachycardia, diagnosed 05/2024
Malignant melanoma, stage IV status post right axillary node dissection and radiation, felt to be in remission
Chronic right upper extremity lymphedema with history of DVT
PVCs
Hypertension
Hyperlipidemia
History of mild abnormal stress test 2012
Thoracic aortic ectasia
Chronic renal insufficiency
Adrenal insufficiency
Acquired hypothyroidism
Sleep apnea
Obesity
History of prostate cancer status post radiation
B/L GURPREET
Past Medical History
Past Medical History: Other (in HPI)
Social History
Tobacco: Non-Smoker
Alcohol: Occasional
Personal:
Employment: Retired
Family History
Family History: Reviewed & Not Pertinent
Allergies / Home Medications
Allergy/AdvReac Type Severity Reaction Status Date / Time
allopurinol Allergy Unknown Verified 01/28/25 08:59
colchicine Allergy Unknown Verified 01/28/25 08:59
doxycycline Allergy Unknown Verified 01/28/25 08:59
morphine Allergy Itching Verified 01/28/25 08:59
IV contrast Allergy Itching Uncoded 01/28/25 08:59
�Medication �Instructions �Recorded �Confirmed �Type
febuxostat 40 mg tablet 40 mg PO DAILY Hyperuricemia 01/07/23 02/25/25 History
levothyroxine 50 mcg tablet 50 mcg PO DAILY AT 0700 Thyroid 01/07/23 02/25/25 History
rosuvastatin 40 mg tablet 40 mg PO DAILY High Cholesterol 01/07/23 02/25/25 History
acetaminophen 325 mg tablet 650 mg PO Q4HPRN PRN MILD PAIN 02/25/25 02/25/25 History
(Tylenol)
amlodipine 10 mg tablet (Norvasc) 10 mg PO DAILY 02/25/25 02/25/25 History
cenegermin-bkbj 0.002 % eye drops 1 drp ophthalmic (eye) 6XD 02/25/25 02/25/25 History
(Oxervate)
hydrocortisone 5 mg tablet 5 mg PO QPM 02/25/25 02/25/25 History
hydrocortisone 5 mg tablet 10 mg PO DAILY 02/25/25 02/25/25 History
ofloxacin 0.3 % eye drops 1 drp RIGHT EYE Q4H 02/25/25 02/25/25 History
Review of Systems
-
History Source: Patient
All other systems: Negative unless noted
Physical Exam
Vital Signs
Temp Pulse Resp BP Pulse Ox
97.9 F 108 18 102/60 97
02/26/25 15:09 02/26/25 15:09 02/26/25 15:09 02/26/25 15:09 02/26/25 15:09
Lab Results
02/26/25 05:33
02/26/25 05:33
Troponin I < 0.012 ng/ml D 02/25/25 21:53
Qsp-L-Uncvngfdigu Pept Cancelled 02/25/25 04:28
Physical Exam
General: No Apparent Distress, Comfortable and Other (on supp O2)
HEENT: Normocephalic, Moist Mucous Membranes and Other (R eye closed)
Respiratory: Wheezes (mild on L) and Non Labored Respirations
Cardiac: S1/S2 and Regular Rhythm
GI: Soft, Non Tender, Non Distended and Normal Bowel Sounds
Musculoskeletal: No Clubbing, No Cyanosis and No Edema
Skin: Warm, Dry and Other (ecchymoses of B/L LE and hands)
Neuro: AO x 3
Impression / Plan
-
Primary Business Services Manager: Dr. Garcia
Assessment:
Presentation with weakness, dizziness
Right upper extremity cellulitis
Hypoxia
Concern for acute HFpEF
Concern for ILD
Elevated troponin
Paroxysmal atrial fibrillation/atrial tachycardia, diagnosed 05/2024
Intolerance to Eliquis due to ecchymoses, fatigue
Malignant melanoma, stage IV status post right axillary node dissection and radiation, felt to be in remission
Chronic right upper extremity lymphedema with history of DVT
PVCs/NSVT
Hypertension
Hyperlipidemia
History of mild abnormal stress test 2012
Thoracic aortic ectasia
Chronic renal insufficiency
Adrenal insufficiency
Acquired hypothyroidism
Sleep apnea
Obesity
History of prostate cancer status post radiation
B/L GURPREET
ECHO 02/25/25: EF 50 to 55%, MAC, trace MR, mild AR, mildly dilated aortic root, no significant change compared to prior
Plan:
- Patient presents with weakness and dizziness. He was noted to be hypoxic by EMS
- Suspect hypoxia multifactorial due to lung disease, suspected ILD per pulmonary, as well as component of acute CHF.
- Suspect acute heart failure is at least in part secondary to paroxysms of atrial fibrillation versus atrial tachycardia noted on telemetry since admission. He reports as an outpatient as well he notes intermittent heart rates up to the 120s.
- Complicating matters, he also has a history of a mildly abnormal stress test in 2013, and refused additional testing for this. His troponin this admission peaked at 0.035 and trended down. He denies chest pain. EKG sinus tachycardia with PVCs
and left anterior fascicular block. He also had 15 beat run of NSVT on telemetry overnight
- Needs eventual ischemic evaluation, likely Lexiscan nuclear stress test if agreeable as OP
- We discussed treatment of arrhythmia including antiarrhythmic drug therapy and in theory, ablation (although unclear if ideal candidate). We discussed that these treatments require him to take oral anticoagulation. He is not willing to go back
on Eliquis. He reports he is willing to think about going back on an alternative blood thinner like Xarelto. He would not be agreeable to Coumadin. He is going to talk with family and get back to us regarding their decision. If he opts against
anticoagulation, plan would be for rate control strategy. He historically stopped beta-maura due to fatigue, which did not resolve with discontinuation.
- Would attempt to retrial beta-maura, start lopressor 12.5mg BID. would decrease/stop norvasc if needed to allow room for additional HR control
- replete K. check mag
- echo with results as above
- proBNP 1430. Chest CT without evidence of PE, however mild chronic interstitial changes as well as findings possibly representing acute pulmonary edematous changes. Will trial on IV Lasix and assess response. He is not on diuretic therapy as an
outpatient
- CHF education
- Continue treatment of hypoxia per pulmonary as well. Will need eval for home O2. Wean supplemental oxygen as able
- PT/OT evals
Data Reviewed
-
EKG: Tracing Personally Visualized and interpreted
Radiology: Report Reviewed by me
CT Scan: Report Reviewed by me
Medical Tests (Nuc Med, Echo etc): Report Reviewed by me
Labs: Labs Reviewed by me
Old Records: Reviewed
[2025-02-26] MEDS: NSS IV (15:53)
[2025-02-26] MEDS: KCL 20 MEQ PO (16:09)
[2025-02-26] MEDS: LASIX 40 MG IV (16:09)
[2025-02-26] MEDS: SYMBICORT 80/4.5 MCG INHALER 2 PUFF INH (17:47)
[2025-02-26] MEDS: CORTEF 5 MG PO (18:17)
[2025-02-26] MEDS: LOVENOX 40 MG SC (18:20)
[2025-02-26 20:20] LABS: Magnesium 2.2 mg/dl (1.6-2.3)
--- NOTE | 2025-02-26 20:30 | PTCARENOTE ---
Pt attempting to get OOB to use bathroom. HR in 130s when standing up. Pt had episode of hypoxia in the 70s and SVT during day shift when getting up. Pt assisted back into bed. Pt short of breath and dyspneic on exertion. This RN educated pt about
staying in bed and using a bed bell due to these episodes. Pt frustrated about staying in bed but verbalized understanding. Plan of care ongoing.
[2025-02-26] MEDS: TYLENOL 650 MG PO (21:10)
[2025-02-26] MEDS: LOPRESSOR 12.5 MG PO (21:10)
--- NOTE | 2025-02-26 23:20 | PTCARENOTE ---
Pt found to be hypoxic sating 88% on 4L O2. Patient with no complaints of shortness of breath, wheezing, or increased work of breathing. Lung sounds coarse in the bases. Pt put on 5L O2, sating 93%. FLOWER Olmedo made aware. Plan of care
ongoing.
[2025-02-27] MEDS: ZOSYN 50 IV ×4 (01:19→21:10)
[2025-02-27] MEDS: OCUFLOX 1 DROP RIGHT EYE ×6 (01:19→21:15)
[2025-02-27 03:24] VITALS: BP 121/61
[2025-02-27] MEDS: NON-FORMULARY ITEM 1 DROP OPHTH ×6 (06:10→21:11)
[2025-02-27] MEDS: SYNTHROID 50 MCG PO (06:11)
[2025-02-27 06:42] LABS: Hematocrit 37.1 % (39.0-52.0); Hemoglobin 12.6 g/dL (13.0-18.0); Mean Corp Hgb Conc. 34.0 g/dL (33.0-37.0); Mean Corpuscular Volume 96.1 fL (80.0-94.0); Nucleated Red Blood Cells % 0 % (-); Platelet Count 108 10^3/uL (130-400); Red Cell Dist. Width 17.0 % (11.5-14.5)
[2025-02-27] MEDS: SYMBICORT 80/4.5 MCG INHALER 2 PUFF INH ×2 (07:20→19:23)
[2025-02-27 07:33] VITALS: BP 149/68
[2025-02-27 08:04] LABS: Blood Urea Nitrogen 22 mg/dl (9-20); Calcium 8.7 mg/dl (8.4-10.2); Carbon Dioxide 22 mmol/L (22-30); Chloride 108 mmol/L (98-107); Estimated Creatinine Clearance 54 ml/min; Glucose 68 mg/dl (70-99); Potassium 3.3 mmol/L (3.5-5.1); Sodium 135 mmol/L (135-145); eGFR > 60.00
[2025-02-27] MEDS: CRESTOR 40 MG PO (08:25)
[2025-02-27] MEDS: LOPRESSOR 12.5 MG PO ×2 (08:25→21:03)
[2025-02-27] MEDS: CORTEF 15 MG PO (08:25)
[2025-02-27] MEDS: LASIX 40 MG IV (08:26)
[2025-02-27] MEDS: PEPCID 40 MG PO (08:26)
[2025-02-27] MEDS: NORVASC 10 MG PO (08:26)
[2025-02-27] MEDS: NSS (PRESERVATIVE FREE) 10 ML IV (08:27)
[2025-02-27] MEDS: DESENEX/MITRAZOL/ZEASORB 1 APPLIC TOPICAL ×2 (08:27→21:10)
[2025-02-27] MEDS: PROTONIX IV 40 MG IV (08:27)
[2025-02-27] MEDS: KCL 40 MEQ PO (08:45)
--- NOTE | 2025-02-27 10:08 | W.PN.CARDCBS ---
Addendum entered and electronically signed by Abimbola Arreguin MD 02/27/25 10:39:
I saw and examined the patient.
The Showroom Executive Director's note was reviewed and I agree with the note.
Comment:
He is feeling somewhat better overall. He has heart failure with preserved ejection fraction and concern for interstitial lung disease for which she is felt to likely need home supplemental oxygen being seen by pulmonary. He has atrial tachycardia
and also history of ventricular tachycardia. He has been resistant to taking most medication in particular oral anticoagulation because of bleeding related issues. He is also being treated for right arm cellulitis with antibiotic treatment.
From a cardiac point of view he is likely clinically nearing euvolemic status. Initial proBNP was 1430. Exam is difficult with some crackles noted, distant heart sounds but regular and no significant edema.
Likely change IV to oral diuretic tomorrow
Continue pulmonary evaluation
PT and incentive spirometry
Unlikely he would be accepting of SGLT2 inhibitor
Nonischemic myocardial injury with low-level troponin noted.
Telemetry personally reviewed by me is stable. Currently sinus rhythm.
From an arrhythmia perspective in particular PAT
Continue low-dose beta-maura for PAT as long as he is agreeable
Continue open communication regarding oral anticoagulation for which at this time he is considering Xarelto but does not think he would like to go that route.
He does understand the risks and benefits including stroke risk. He does not want us to contact his family by telephone.
Original Note:
Today's Communication / Plan
-
continue IV lasix
replete K
wean supp O2, eval for home O2
continue lopressor
patient considering xarelto, ongoing discussions between patient and family
Impression / Plan
-
Primary Men'S Furnishings Salesperson: Dr. Garcia
Assessment:
Presentation with weakness, dizziness
Right upper extremity cellulitis
Hypoxia
Concern for acute HFpEF
Concern for ILD
Elevated troponin
Paroxysmal atrial fibrillation/atrial tachycardia, diagnosed 05/2024
Intolerance to Eliquis due to ecchymoses, fatigue
Malignant melanoma, stage IV status post right axillary node dissection and radiation, felt to be in remission
Chronic right upper extremity lymphedema with history of DVT
PVCs/NSVT
Hypertension
Hyperlipidemia
History of mild abnormal stress test 2012
Thoracic aortic ectasia
Chronic renal insufficiency
Adrenal insufficiency
Acquired hypothyroidism
Sleep apnea
Obesity
History of prostate cancer status post radiation
B/L GURPREET
ECHO 02/25/25: EF 50 to 55%, MAC, trace MR, mild AR, mildly dilated aortic root, no significant change compared to prior
Plan:
- Patient presents with weakness and dizziness. He was noted to be hypoxic by EMS
- Hypoxia felt to be multifactorial due to lung disease, suspected ILD per pulmonary as well as component of acute CHF
- Diuresing well with negative I&O. Weight overall trending down from admission. Continue IV Lasix 40 mg daily. Creatinine up slightly to 1.2. He is not on diuretic therapy as an outpatient prior to admission
- Wean supplemental oxygen as able. eval for home O2
- CHF education
- replete KBenjamín mag stable
- We had again discussed his paroxysms of atrial fibrillation versus atrial tachycardia noted on telemetry since admission. At this point he would like to continue to think about resuming anticoagulation�he is not willing to go back on Eliquis and
is not agreeable to Coumadin, so would consider Xarelto.
- For now plan will be for rate control strategy with Lopressor. If needed Norvasc could be decreased or stopped to allow room for up titration of heart rate control
- If he is agreeable to start Xarelto as an outpatient, he could be considered for antiarrhythmic drug therapy
- echo with results as above
- Troponin peaked at 0.035 and trended down. Has not had complaints of chest pain. He does have history of a mildly abnormal stress test in 2012 and refused additional testing for this. He did have 15 beat run of NSVT on telemetry 02/25, none
overnight. Would consider for eventual ischemic evaluation as an outpatient if patient agreeable. For now we will manage medically as nonischemic myocardial injury
- PT/OT evals
Progress Note - Men'S Furnishings Salesperson
Subjective
Date of Service: February 27, 2025
reports feels breathing is improving
Objective
Labs:
02/27/25 06:28
02/27/25 06:28
Labs
Hgb 12.6 g/dL (13.0-18.0) L 02/27/25 06:28
Hct 37.1 % (39.0-52.0) L 02/27/25 06:28
Plt Count 108 10^3/uL (130-400) L 02/27/25 06:28
Sodium 135 mmol/L (135-145) 02/27/25 06:28
Potassium 3.3 mmol/L (3.5-5.1) L 02/27/25 06:28
BUN 22 mg/dl (9-20) H 02/27/25 06:28
Creatinine 1.2 mg/dL (0.7-1.3) 02/27/25 06:28
Glucose 68 mg/dl (70-99) L 02/27/25 06:28
Troponins
02/25/25 02/25/25 02/25/25
04:05 10:17 16:16
Troponin I 0.033 0.030 0.035 H*
02/25/25
21:53
Troponin I < 0.012 D
Vital Signs and I&O:
Vital Signs
Temp Pulse Resp BP Pulse Ox
97.4 F 82 16 149/68 90
02/27/25 07:33 02/27/25 08:26 02/27/25 07:33 02/27/25 08:26 02/27/25 07:33
Vital Signs
Temp Pulse Resp BP Pulse Ox
97.4 F 82 16 149/68 90
02/27/25 07:33 02/27/25 08:26 02/27/25 07:33 02/27/25 08:26 02/27/25 07:33
Intake & Output
02/25/25 02/26/25 02/27/25 02/28/25
07:59 07:59 07:59 07:59
Intake Total 1200 / 1200 720 / 720
Output Total 1250 / 1250 2200 / 2200
Balance -50 / -50 -1480 / -1480
Physical Exam
Physical Exam
GEN: No distress, awake, alert, oriented x3. on supp O2
HEENT: supple, mmm, R eye closed
LUNGS: Crackles B/L bases, no wheezes
CV: Reg, S1/S2, no murmur
ABD: soft, BS+, NT/ND
EXT: No cyanosis, clubbing. 2+ LUE edema with erythema and dressing in place.
NEURO: Gross non-focal
SKIN: Warm, pink, dry. No rash
--- NOTE | 2025-02-27 11:28 | W.PN.PUL3 ---
Today's Communication / Plan
-
At times, still requiring up to 4 L with ambulation
Encouraged further IS usage to see if this can be decreased
IV diuresis ongoing per cards
Encourage further out of bed, PT evals--overall may need rehab placement
Outpatient follow-up to be arranged upon discharge
Assessment
-
Patient is an 79-year-old male with previous history of prostate cancer, A-fib, adrenal insufficiency presented to ER for generalized weakness and shortness of breath. He states symptoms have been ongoing since May 2024 when he started
taking Eliquis for A-fib. He has had increasing fatigue, shortness of breath, chest discomfort with progressive weakness and decreased appetite over the past 2 to 3 days.
He is noted to have hypoxemia during this admission placed on [address] obtained indicating significant bronchiectasis with possible underlying ILD. Radiographic changes have been present dating back to 2012 but have been steadily
worsening. We are consulted for eval 02/25/25.
Acute hypoxic respiratory failure
Abnormal CT, possible ILD
SOB
Generalized weakness
RUE cellulitis
Non-Gapped Metabolic Acidosis
Hyponatremia, mild
Suspect GERD/heartburn as a cause for chest discomfort
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
Adrenal Insufficiency
Alcohol abuse
Chronic renal insufficiency, stage II (mild)
Essential (primary) hypertension
History of Malignant Melanoma
History of Prostate Cancer
RUE DVT
Thoracic aortic ectasia
Mixed hyperlipidemia
Sleep apnea
Atrial tachycardia
Paroxysmal Atrial Fibrillation on Eliquis
Hypothyroidism
Right Retina Detachment
Plan
Hypoxemia noted, he is placed on 3L NC
Home O2 evaluation today w/ possible home set up
Prior history of lung disease is NOT noted -- He has never formally been diagnosed with any lung disease and has never seen outpatient pulmonary.
Lifelong nonsmoker, denies exposure history, family history of lung disease.
Has been following [facility] with history of malignant melanoma that reportedly involved lung but was considered in remission about 10 years ago per .
Suspect patient has underlying ILD but findings on CT are not consistent wtih UIP (lack of reticular findings and honeycombing)
He has extensive traction and cylindrical bronchiectasis on CT --progressive on subsequent CTs since 2012
Less likely related to underlying melanoma if this was considered treated at [facility], unclear if they were/are aware of lung findings
Prior ECHO results are reviewed indicating no history of heart disease
Eval for chest discomfort ongoing, follows with Dr Garcia
He feels this is related to Eliquis
I suspect GERD/reflux--he notes phlegm production with meals, chest discomfort that improves with Tums, pain in his midsection with meals
Will change his PPI to pepcid so he may go home on this med
Will obtain baseline PFT testing while here to evaluate ILD/RLD, SOB
Results reviewed, mild restriction, severe diffusion impairment--he will likely need O2 set up at home
I will change his nebs to inhalers that he can continue at home
Will need outpatient pulmonary evaluation in our office for PFTs and 6MWT
Reviewed with patient and at bedside
Risk factors assessed for underlying sleep disordered breathing also noted, recommend outpatient PSG/sleep evaluation
He does not wish to have a sleep study
Discharge planning pending PT evals
Diagnostic Data
Chest X-Ray: 02/25/25- No acute cardiopulmonary process.
CT Scan: CHEST 02/25/25- No evidence of central pulmonary embolism. Some mild chronic interstitial changes again seen bilaterally, predominantly in the lower lobes. Superimposed mild prominence of the interstitium and minor widespread bilateral
ground-glass opacification, nonspecific, possibly representing acute pulmonary edematous changes. Stable mild aneurysmal dilatation of the ascending thoracic aorta at 4.1 cm.
Echo: 06/07/24- Normal left ventricular size, wall thickness and systolic function. No regional wall motion abnormalities are seen. LV ejection fraction is 53% by Cabrales's biplane method of discs. Normal diastolic function. Normal right ventricular
size and function. Mitral annular calcification. Mild mitral regurgitation. Aortic sclerosis without stenosis. Dilated aortic root measuring 4.3 cm at the sinuses of Valsalva; 3.9 cm at the sinotubular junction and 4.1 cm in the ascending aorta.
Compared to the previous echo 01/31/24, there is no significant change.
PFT 02/26/25: FEV1 2.28L 75%, FVC 2.69L 65%, ratio 85. Post FEV1 2.31L 76%, no BD response. TLC 5.79L 77%, DLCO 22% (mild restriction, severe diffusion impairment)
Reports and relevant images were personally reviewed.
Total time spent on this consultation __56__ minutes which includes review of history, physical exam, medications, laboratory data, personal review of imaging, extensive review of outpatient records, discussion with care team and respiratory therapy.
Subjective Data
-
Date of Service:
Date of Service: February 27, 2025
Chief Complaint: Pulmonary Follow Up
Subjective:
Still hypoxemic, occasionally requiring up to 4 L with exertion
Still complains of weakness, appears lethargic in the bed
Objective Data
Data Reviewed
Vital Signs / I&O / Oxygen:
Vital Signs
Temp Pulse Resp BP Pulse Ox
97.4 F 82 16 149/68 92
02/27/25 07:33 02/27/25 08:26 02/27/25 07:33 02/27/25 08:26 02/27/25 10:18
Intake and Output
02/26/25 02/27/25 02/28/25
06:59 06:59 06:59
Intake Total 1200 / 1200 720 / 720
Output Total 1250 / 1250 2200 / 2200
Balance -50 / -50 -1480 / -1480
SaO2 92
Nasal Cannula flow liters per 6
minute
Physical Exam
General: Comfortable and Other (NAD, weak appearing)
HEENT: Normocephalic, Anicteric and Moist Mucous Membranes
Cardiovascular: S1-S2 and Regular Rhythm
Respiratory: Crackles and Non-Labored Respirations
GI: Soft, Non Distended and Non Tender
Neurology: Awake, Alert, Oriented and No Motor Deficits
Skin: Warm, Dry and Good Color
Labs/Micro/Reports
Lab Data
02/27/25 06:28
02/27/25 06:28
Microbiology
02/25/25 05:57 Arm - Right Wound Culture - Final
Pseudomonas aeruginosa
02/25/25 05:57 Arm - Right Gram Stain - Final
02/25/25 20:30 Nose MRSA Screen - Final
No Methicillin Resistant Staphylococcus aureus isolated.
02/25/25 05:57 Blood/Venous Blood Culture - Preliminary
No Growth in 48 hours- Final report to follow
02/25/25 05:57 Blood/Venous Blood Culture - Preliminary
No Growth in 48 hours- Final report to follow
02/25/25 05:34 Nasal Swab Influenza Types A & B (IMELDA) - Final
Negative for Influenza A & B, NAAT
Negative results must be combined with clinical observations
and patient history.
Nucleic Acid Amplification test (NAAT)performed on the
[employer] platform.
[2025-02-27 11:29] VITALS: BP 133/59
--- NOTE | 2025-02-27 11:45 | W.PN.HOSP.TC ---
Today's Communication/Plan
-
Monitor vital signs see plan
Continue with IV diuresis
Continue with breathing treatment
Wean oxygen as tolerated
Bladder scan
Discussed with daughter over the phone
Assessment / Plan
Assessment / Plan
RUE Cellulitis
Sepsis secondary to the above
- Patient presents with tachycardia, tachypnea - borderline leukocytosis and temperature - and evidence of RUE cellulitis.
- ED ordered cx and shows pseudomonas, will treat with Zosyn
- IVF support, antipyretics, pain control, etc.
- Follow for clinical improvement.
Acute hypoxic respiratory failure suspect multifactorial secondary to ILD and acute congestive heart failure with preserved ejection fraction
Wean oxygen as tolerated, currently on 6 L
- Complains of bilateral chest discomfort. No
- Prior h/o RUE DVT (s/p surgery / lymph node dissection / etc) and stopped his Eliquis 3 weeks ago.
- Echo with mildly dilated aortic root, preserved EF
- Patient reports symptoms started 05/2024 and blames Eliquis - but this is also when his A-Fib started / was diagnosed.
- In NSR at present. Outpatient notes suggest no significant A-Fib burden appreciated on Kardia evaluations.
Outpatient bell CT with dilation of ascending aorta, 4.1 cm. In the bilateral lower lobes there are mild changes of fibrosis along with dependent aspect of the lungs with associated mild clinical bronchiectasis changes.
Pulmonary following. PFTs 02/26 with severe diffusion impairment. Currently on inhaler
Paroxysmal atrial fibrillation
Stopped Eliquis weeks ago on his own
Currently normal sinus rhythm; intermittent SVT
Echo 02/25 with no significant change from previous echocardiogram.
speech to evaluate
Non-Gapped Metabolic Acidosis
- Unclear etiology
improving
Hypokalemia
Replete
Adrenal Insufficiency
- Complaints of general weakness, gait issues, etc potentially due to relative adrenal insufficiency.
- Increase AM dose of hydrocortisone back to 15mg for now (his dose during prior hospital stay). Continue 5mg PM dose.
- Follow BP, labs / lytes, etc for any evidence of persistent adrenal insufficiency.
- Pulse dose steroids if any evidence of decompensation.
Benign Hypertension
- Stable. Continue amlodipine with holding parameters.
Hyponatremia
Monitor
Hypothyroidism
- Continue current T4 supplementation.
TSH 3.4
Right Retina Detachment
- Followed previously at [facility] but now followed locally (recent change).
- On multiple eye drips which he will have family bring in to him today.
- Sutures remain in place in the R eyelids.
Right upper extremity chronic lymphedema
History of Malignancy Melanoma
History of Prostate Cancer
- Recent CT showed no evidence of recurrence.
- s/p axillary LN dissection on the R which predisposes to cellulitis, lymphedema, etc.
DVT Prophylaxis
History of RUE DVT
lovenox
Code Status: Full
General: No acute distress
HEENT: Nasal cannula, right eyelid sutured
Respiratory: Other (Decreased BS at bases - otherwise clear.)
Cardiac: S1/S2, Regular Rhythm and Murmur (II/ ABBEY)
GI: Soft, Non Tender, Non Distended and Normal Bowel Sounds
Musculoskeletal: Other (2+ edema RUE. Improving erythema)
Neuro: AO x 3
I spent a total of 53 minutes with the patient or on the floor. More than 50% of this time involved counseling and coordination of care.
Anticipated Discharge: > 48 hours
Subjective/Interval History
-
Date of Service: February 27, 2025
Still feels very weak
Objective Data
-
Labs:
Laboratory Results
02/27/25
06:28
WBC 10.8
Hgb 12.6 L
Hct 37.1 L
Plt Count 108 L
Sodium 135
Potassium 3.3 L
Chloride 108 H
Carbon Dioxide 22
BUN 22 H
Creatinine 1.2
Glucose 68 L
Calcium 8.7
Vital Signs:
Vital Signs
Temp Pulse Resp BP Pulse Ox
99.1 F 94 16 133/59 92
02/27/25 11:29 02/27/25 11:29 02/27/25 11:29 02/27/25 11:29 02/27/25 10:18
I&O
02/26/25 02/27/25 02/28/25
06:59 06:59 06:59
Intake Total 1200 / 1200 720 / 720
Output Total 1250 / 1250 2200 / 2200
Balance -50 / -50 -1480 / -1480
--- NOTE | 2025-02-27 12:19 | HFEDUCATE ---
79 yo male admitted with SOB, hypoxia, weakness, dizziness and Rt upper extremity cellulitis. Past medical history includes acute HFpEF, Paroxysmal Afib/atrial Tachycardia, HTN, Hyperlipidemia, Chronic renal Insufficiency, acquired hypothyroidism,
sleep apnea, obesity and H/O prostate Ca. Current ejection fraction by echocardiogram is 50-55%. He lives at home with his significant other. He reports following a low sodium diet but does not follow a 48oz fluid restriction per day. He has a scale
at home but does not weigh himself daily.
I provided HF education and discussed the usual lifestyle recommendations. I advised he continue to follow a low sodium diet of 4833-8066 mg. per day, and limit it to 500-750 mg. per meal. I advised a 48oz fluid restriction per day and discussed
ways to achieve the recommendations. I also advised he begin to weigh himself daily and to monitor for any slight weight gain. I explained how to monitor for exacerbations. We discussed other alarming symptoms to watch for and when to notify his
provider. We discussed need for medications.
Recommendations:
Continue all HF recommended medications as ordered on discharge.
Limit sodium intake to <500-750 mg per meal.
Limit fluid intake to <48 oz per day.
Daily weights and contact provider for any weight gain >3lbs in one day or 5lbs in one week.
Follow up with provider as recommended.
[2025-02-27 14:23] LABS: Urine Character Clear (Clear)
[2025-02-27 14:59] LABS: Urine Red Blood Cell >100 /HPF (0-2)
[2025-02-27 15:17] VITALS: BP 113/64
[2025-02-27 15:38] VITALS: BMI 26.9
--- NOTE | 2025-02-27 16:21 | CM ---
CM following for discharge planning. PT jennifer recommends d/c to home with home care.
Watch for O2 needs; pt does not have O2 at home.
[2025-02-27] MEDS: CORTEF 5 MG PO (17:15)
[2025-02-27] MEDS: LOVENOX 40 MG SC (17:15)
--- NOTE | 2025-02-27 18:03 | PTCARENOTE ---
Pt. with frequent oxygenation needs as the morning progressed. Pt. on 5 L needed to be moved up to 10L. asked this nurse to bladder scan pt. Pt.'s bladder scan was 569 mL. made aware asked to straight cath. This nurse and another nurse
attempted to straight cath this pt., however due to history of prostate cancer with radiation treatment, pt. did not tolerate cath and cath was met with a lot of resistants. Patient tried to pee on his own and peed 250 mls. Pt. then bladder scanned
for 360. MD notified, asked to monitor pt. to assess need for urology consult. Pt. with frequent small urine output throughout the afternoon. Bladder scanned after urinating 350 mls and pt. was scanned for 250 mls. Will pass along to night nurse in
report. Will continue with plan of care
[2025-02-27 19:34] VITALS: BP 108/59
[2025-02-27] MEDS: TYLENOL 650 MG PO (21:23)
[2025-02-27 22:25] VITALS: BP 111/51
[2025-02-28] VITALS (7 sets, daily range): BP systolic 93–156; BP diastolic 53–84; PULSE 83; O2SAT 87; BMI 25.3
[2025-02-28] MEDS: OCUFLOX 1 DROP RIGHT EYE ×6 (02:23→20:52)
[2025-02-28] MEDS: ZOSYN 50 IV ×4 (02:23→19:51)
[2025-02-28] MEDS: TYLENOL 650 MG PO ×2 (05:41→23:59)
[2025-02-28] MEDS: SYNTHROID 50 MCG PO (05:41)
[2025-02-28 06:23] LABS: Hematocrit 38.4 % (39.0-52.0); Hemoglobin 12.9 g/dL (13.0-18.0); Mean Corp Hgb Conc. 33.6 g/dL (33.0-37.0); Mean Corpuscular Volume 96.7 fL (80.0-94.0); Nucleated Red Blood Cells % 0 % (-); Platelet Count 134 10^3/uL (130-400); Red Cell Dist. Width 16.3 % (11.5-14.5)
[2025-02-28 06:47] LABS: Blood Urea Nitrogen 23 mg/dl (9-20); Calcium 8.4 mg/dl (8.4-10.2); Carbon Dioxide 23 mmol/L (22-30); Chloride 103 mmol/L (98-107); Estimated Creatinine Clearance 46 ml/min; Glucose 82 mg/dl (70-99); Potassium 3.2 mmol/L (3.5-5.1); Sodium 133 mmol/L (135-145); eGFR 50.81
[2025-02-28] MEDS: SYMBICORT 80/4.5 MCG INHALER 2 PUFF INH ×2 (07:30→19:37)
[2025-02-28] MEDS: PEPCID 20 MG PO (09:21)
[2025-02-28] MEDS: NORVASC 10 MG PO (09:21)
[2025-02-28] MEDS: LOPRESSOR 12.5 MG PO ×2 (09:21→19:51)
[2025-02-28] MEDS: CRESTOR 40 MG PO (09:21)
[2025-02-28] MEDS: CORTEF 15 MG PO (09:22)
--- NOTE | 2025-02-28 09:22 | PTOTSP ---
Dysphagia Evaluation
Patient without signs or reports concerning for oral/pharyngeal dysphagia or aspiration at time of clinical bedside swallowing evaluation. However, he has acute on chronic dysphagia risk factors (i.e., concern for ILD and CHF contributing to acute
AHRF).
Recommend:
1. IDDSI 7 Regular, Thin
2. Medications as best tolerated
3. Strategies: single sips/bites with slow rate/breaks for breathing
4. No further dysphagia tx warranted at this time. Please reconsult as appropriate.
[2025-02-28] MEDS: KCL 40 MEQ PO (09:23)
[2025-02-28] MEDS: NSS (PRESERVATIVE FREE) 10 ML IV (09:23)
[2025-02-28] MEDS: PROTONIX IV 40 MG IV (09:24)
[2025-02-28] MEDS: DESENEX/MITRAZOL/ZEASORB 1 APPLIC TOPICAL ×2 (09:26→19:52)
--- NOTE | 2025-02-28 09:26 | W.PN.PUL3 ---
Today's Communication / Plan
-
Hypoxemia noted despite treatment, upon exertion
Repeat CXR today
Encouraged IS, OOB as tolerated
Agree with RHC planning for tomorrow
Updated at bedside
Assessment
-
Patient is an 79-year-old male with previous history of prostate cancer, A-fib, adrenal insufficiency presented to ER for generalized weakness and shortness of breath. He states symptoms have been ongoing since May 2024 when he started
taking Eliquis for A-fib. He has had increasing fatigue, shortness of breath, chest discomfort with progressive weakness and decreased appetite over the past 2 to 3 days.
He is noted to have hypoxemia during this admission placed on [address] obtained indicating significant bronchiectasis with possible underlying ILD. Radiographic changes have been present dating back to 2012 but have been steadily
worsening. We are consulted for eval 02/25/25.
Acute hypoxic respiratory failure
Abnormal CT, possible ILD
SOB
Generalized weakness
RUE cellulitis
Non-Gapped Metabolic Acidosis
Hyponatremia, mild
Suspect GERD/heartburn as a cause for chest discomfort
Conditions present [employer]
Adrenal Insufficiency
Alcohol abuse
Chronic renal insufficiency, stage II (mild)
Essential (primary) hypertension
History of Malignant Melanoma
History of Prostate Cancer
RUE DVT
Thoracic aortic ectasia
Mixed hyperlipidemia
Sleep apnea
Atrial tachycardia
Paroxysmal Atrial Fibrillation on Eliquis
Hypothyroidism
Right Retina Detachment
Plan
Hypoxemia noted, he is placed on 3L NC--transitioned to 8L midflow
Home O2 evaluation w/ possible home set up
Oxygen requirements are increasing despite treatment
Prior history of lung disease is NOT noted -- He has never formally been diagnosed with any lung disease and has never seen outpatient pulmonary.
Lifelong nonsmoker, denies exposure history, family history of lung disease.
Has been following [facility] with history of malignant melanoma that reportedly involved lung but was considered in remission about 10 years ago per .
Suspect patient has underlying ILD but findings on CT are not consistent wtih UIP (lack of reticular findings and honeycombing)
He has extensive traction and cylindrical bronchiectasis on CT --progressive on subsequent CTs since 2012
Less likely related to underlying melanoma if this was considered treated at [facility], unclear if they were/are aware of lung findings
Prior ECHO results are reviewed indicating no history of heart disease
Eval for chest discomfort ongoing, follows with Dr Garcia
He feels this is related to Eliquis
I suspect GERD/reflux--he notes phlegm production with meals, chest discomfort that improves with Tums, pain in his midsection with meals
Continue pepcid daily
Baseline PFT testing evaluate ILD/RLD, SOB -- Results reviewed, mild restriction, severe diffusion impairment--he will likely need O2 set up at home
Multiple etiologies including PH may be contributing to low O2
I will change his nebs to inhalers that he can continue at home
Will need outpatient pulmonary evaluation in our office for PFTs and 6MWT
Reviewed with patient and at bedside
Risk factors assessed for underlying sleep disordered breathing also noted, recommend outpatient PSG/sleep evaluation
He does not wish to have a sleep study
RHC planning in AM
Diagnostic Data
Chest X-Ray: 02/25/25- No acute cardiopulmonary process.
CT Scan: CHEST 02/25/25- No evidence of central pulmonary embolism. Some mild chronic interstitial changes again seen bilaterally, predominantly in the lower lobes. Superimposed mild prominence of the interstitium and minor widespread bilateral
ground-glass opacification, nonspecific, possibly representing acute pulmonary edematous changes. Stable mild aneurysmal dilatation of the ascending thoracic aorta at 4.1 cm.
Echo: 06/07/24- Normal left ventricular size, wall thickness and systolic function. No regional wall motion abnormalities are seen. LV ejection fraction is 53% by Cabrales's biplane method of discs. Normal diastolic function. Normal right ventricular
size and function. Mitral annular calcification. Mild mitral regurgitation. Aortic sclerosis without stenosis. Dilated aortic root measuring 4.3 cm at the sinuses of Valsalva; 3.9 cm at the sinotubular junction and 4.1 cm in the ascending aorta.
Compared to the previous echo 01/31/24, there is no significant change.
PFT 02/26/25: FEV1 2.28L 75%, FVC 2.69L 65%, ratio 85. Post FEV1 2.31L 76%, no BD response. TLC 5.79L 77%, DLCO 22% (mild restriction, severe diffusion impairment)
Reports and relevant images were personally reviewed.
Total time spent on this consultation __51__ minutes which includes review of history, physical exam, medications, laboratory data, personal review of imaging, extensive review of outpatient records, discussion with care team and respiratory therapy.
Subjective Data
-
Date of Service:
Date of Service: February 28, 2025
Chief Complaint: Pulmonary Follow Up
Subjective:
No new complaints, remains the same
Reportedly needing as high as 8L with exertion
at bedside
Objective Data
Data Reviewed
Vital Signs / I&O / Oxygen:
Vital Signs
Temp Pulse Resp BP Pulse Ox
97.7 F 80 16 106/62 93
02/28/25 08:00 02/28/25 08:00 02/28/25 08:00 02/28/25 08:00 02/28/25 08:00
Intake and Output
02/27/25 02/28/25 03/01/25
06:59 06:59 06:59
Intake Total 720 / 720 1440 / 1440
Output Total 2200 / 2200 1570 / 1570
Balance -1480 / -1480 -130 / -130
SaO2 93
Nasal Cannula flow liters per 8
minute
Physical Exam
General: Comfortable and Other (NAD, weak appearing)
HEENT: Normocephalic, Anicteric and Moist Mucous Membranes
Cardiovascular: S1-S2 and Regular Rhythm
Respiratory: Crackles and Non-Labored Respirations
GI: Soft, Non Distended and Non Tender
Neurology: Awake, Alert, Oriented and No Motor Deficits
Skin: Warm, Dry and Good Color
Labs/Micro/Reports
Lab Data
02/28/25 06:07
02/28/25 06:07
Microbiology
02/25/25 05:57 Blood/Venous Blood Culture - Preliminary
No Growth in 72 hours- Final report to follow
02/25/25 05:57 Blood/Venous Blood Culture - Preliminary
No Growth in 72 hours- Final report to follow
02/25/25 05:57 Arm - Right Wound Culture - Final
Pseudomonas aeruginosa
02/25/25 05:57 Arm - Right Gram Stain - Final
02/25/25 20:30 Nose MRSA Screen - Final
No Methicillin Resistant Staphylococcus aureus isolated.
02/25/25 05:34 Nasal Swab Influenza Types A & B (IMELDA) - Final
Negative for Influenza A & B, NAAT
Negative results must be combined with clinical observations
and patient history.
Nucleic Acid Amplification test (NAAT)performed on the
[employer] platform.
[2025-02-28] MEDS: NON-FORMULARY ITEM 1 DROP OPHTH ×5 (09:30→20:51)
--- NOTE | 2025-02-28 12:03 | W.PN.HOSP.TC ---
Today's Communication/Plan
-
Monitor vital signs see plan
Wean oxygen as tolerated
Plan for right heart cath tomorrow per cardiology
Continue with inhaler
Encourage I-S
Replete potassium
Monitor renal function
Renal/bladder ultrasound
Assessment / Plan
Assessment / Plan
RUE Cellulitis
Sepsis secondary to the above
- Patient presents with tachycardia, tachypnea - borderline leukocytosis and temperature - and evidence of RUE cellulitis.
- ED ordered cx and shows pseudomonas, will treat with Zosyn. Cellulitis appears to be improving
- Follow for clinical improvement.
Acute hypoxic respiratory failure suspect multifactorial secondary to ILD and acute congestive heart failure with preserved ejection fraction
Wean oxygen as tolerated, currently on 8 L
- Prior h/o RUE DVT (s/p surgery / lymph node dissection / etc) and stopped his Eliquis 3 weeks ago.
- Echo with mildly dilated aortic root, preserved EF
- Patient reports symptoms started 05/2024 and blames Eliquis - but this is also when his A-Fib started / was diagnosed.
- In NSR at present. Outpatient notes suggest no significant A-Fib burden appreciated on Kardia evaluations.
Outpatient bell CT with dilation of ascending aorta, 4.1 cm. In the bilateral lower lobes there are mild changes of fibrosis along with dependent aspect of the lungs with associated mild clinical bronchiectasis changes.
Pulmonary following. PFTs 02/26 with severe diffusion impairment. Currently on inhaler
Paroxysmal atrial fibrillation
Stopped Eliquis weeks ago on his own
Currently normal sinus rhythm; intermittent SVT
Echo 02/25 with no significant change from previous echocardiogram.
Speech evaluated, no signs of aspiration
Discussed with cardiology, difficult volume status and giving elevated renal function will need to make sure patient is volume overloaded. Plan for right heart cath 03/01 per cardiology
[place]
check Renal/bladder ultrasound
Monitor with diuresis
Non-Gapped Metabolic Acidosis
- Unclear etiology
improving
Hypokalemia
Replete
Adrenal Insufficiency
- Complaints of general weakness, gait issues, etc potentially due to relative adrenal insufficiency.
- Increase AM dose of hydrocortisone back to 15mg for now (his dose during prior hospital stay). Continue 5mg PM dose.
- Follow BP, labs / lytes, etc for any evidence of persistent adrenal insufficiency.
- Pulse dose steroids if any evidence of decompensation.
Benign Hypertension
- Stable. Continue amlodipine with holding parameters.
Hyponatremia
Monitor
Hypothyroidism
- Continue current T4 supplementation.
TSH 3.4
Right Retina Detachment
- Followed previously at [facility] but now followed locally (recent change).
- On multiple eye drops
- Sutures remain in place in the R eyelids.
Right upper extremity chronic lymphedema
History of Malignancy Melanoma
History of Prostate Cancer
- Recent CT showed no evidence of recurrence.
- s/p axillary LN dissection on the R which predisposes to cellulitis, lymphedema, etc.
DVT Prophylaxis
History of RUE DVT
lovenox
Code Status: Full
General: No acute distress
HEENT: Nasal cannula, right eyelid sutured
Respiratory: Other (Decreased BS at bases - otherwise clear.)
Cardiac: S1/S2, Regular Rhythm and Murmur (II/ ABBEY)
GI: Soft, Non Tender, Non Distended and Normal Bowel Sounds
Musculoskeletal: Other (1+ edema RUE. Improving erythema)
Neuro: AO x 3
I spent a total of 53 minutes with the patient or on the floor. More than 50% of this time involved counseling and coordination of care.
Anticipated Discharge: > 48 hours
Subjective/Interval History
-
Date of Service: February 28, 2025
continues to require oxygen
Objective Data
-
Labs:
Laboratory Results
02/28/25
06:07
WBC 8.6
Hgb 12.9 L
Hct 38.4 L
Plt Count 134 D
Sodium 133 L
Potassium 3.2 L
Chloride 103
Carbon Dioxide 23
BUN 23 H
Creatinine 1.4 H
Glucose 82
Calcium 8.4
Vital Signs:
Vital Signs
Temp Pulse Resp BP Pulse Ox
97.7 F 80 16 106/62 93
02/28/25 08:00 02/28/25 08:00 02/28/25 08:00 02/28/25 08:00 02/28/25 08:00
I&O
02/27/25 02/28/25 03/01/25
06:59 06:59 06:59
Intake Total 720 / 720 1440 / 1440
Output Total 2200 / 2200 1570 / 1570
Balance -1480 / -1480 -130 / -130
--- NOTE | 2025-02-28 12:05 | PN.CDI ---
CDI
- -
CDI:
Physician Documentation Request
Admit Date: 02/25/25 07:21
Dear Doctor Narayan,
Clinical Indicators:
Patient admitted with sepsis due to cellulitis.
02/27 note/assessment: -'pt with a 30% weight loss in 1 year, significant.'
-'With weight loss of > 20% in 1 year and < 75% estimated needs > 1 month pt meets
AND/ASPEN criteria for moderate protein calorie malnutrition of chronic illness.
Based on the above information and your assessment, which of the following most accurately represents the patient's nutritional status?
Moderate Protein Calorie Malnutrition
Other (please specify)
[place] Criteria ([facility] Hospitalist 2017)
2 or more criteria must be present for either
non severe or severe malnutrition
Note that the criteria differs related to the
presence of an acute or chronic illness
Acute Illness Chronic Illness
Energy Intake Non Severe: <75% for >7 days Non Severe: <75% for >1 month
Severe: <50% for >5 days Severe: <75% for >1 month
Weight Loss Non Severe: 1-2% over 1 week Non Severe: 5% over 1 month
5% over 1 month 7.5% over 3 months
7.5% over 3 months 10% over 6 months
1 year N/A 20% over 1 year
Severe: >2% over 1 week Severe: >5% over 1 month
>5% over 1 month >7.5% over 3 months
>7.5% over 3 months >10% over 6 months
1 year N/A >20% over 1 year
Body Fat Non Severe: Mild Decrease Non Severe: Mild Loss
Severe: Moderate Decrease Severe: Severe Loss
Muscle Mass Non Severe: Mild Decrease Non Severe: Mild Loss
Severe: Moderate Decrease Severe: Severe Loss
Fluid Accumulation Non Severe: Mild Accumulation Non Severe: Mild Accumulation
Severe: Moderate to severe Severe: Moderate to severe
accumulation accumulation
Reduced Button Spindler Strength Non Severe: N/A Non Severe: N/A
Severe: Measurably reduced Severe: Measurably reduced
Additional criteria that can be used to Determine if Mild or Moderate Malnutrition ([employer] Manual 2018)
Mild Moderate Severe
Albumin gm/dl <3.0 gm/dl <2.5 gm/dl <2.0 gm/dl
Pre Albumin mg/dl <15 gm/dl <10 mg/dl <5.0 mg/dl
BMI <18.5 <17 <16
Use of terms such as suspected, likely, concern for, or probable (associated with a specific diagnosis that is being evaluated, monitored, or treated as if it exists) are acceptable and can be coded in the inpatient setting, when documented at the
time of discharge.
Thank you,
BOSSMAN Smith RN
CDI Specialist
available via tiger text
Please use your independent medical judgment in providing your response.
[2025-02-28] MEDS: NON-FORMULARY ITEM OPHTH (12:12)
--- NOTE | 2025-02-28 12:43 | W.PN.CARDCBS ---
Addendum entered and electronically signed by Tone Garcia MD 02/28/25 14:46:
I saw and examined the patient.
The CRYSTAL INSPECTOR or PA's note was reviewed and I agree with the note.
Comment: General: Well developed, well nourished in NAD.
Neck: Supple, no JVD, HJR, carotids +2 B/L, no bruits bilaterally.
Heart: Non displaced PMI, RRR, no murmurs, No S3, S4, no rubs.
Lungs: Scattered rhonchi
Extremities: No clubbing, cyanosis or edema bilaterally.
Neuro: Grossly nonfocal, awake, alert and oriented x3.
He is currently on 8 L of oxygen and creatinine is increased to 1.4. He would be an ideal candidate for right heart catheterization to evaluate possible CHF. If right heart cath is unremarkable likely due to interstitial lung disease. This will
be done on Thursday 03/01. Replete potassium. Wean oxygen as possible. Explained risk of right heart catheterization in detail and he agrees to proceed. No further VT.
Original Note:
Today's Communication / Plan
-
transition to po lasix 40mg daily
replete K
RHC in AM
wean O2 as able
Impression / Plan
-
Primary Transitions Manager Rn: Dr. Garcia
Assessment:
Presentation with weakness, dizziness
Right upper extremity cellulitis
Hypoxia
Concern for acute HFpEF
Concern for ILD
Elevated troponin
Paroxysmal atrial fibrillation/atrial tachycardia, diagnosed 05/2024
Intolerance to Eliquis due to ecchymoses, fatigue
Malignant melanoma, stage IV status post right axillary node dissection and radiation, felt to be in remission
Chronic right upper extremity lymphedema with history of DVT
PVCs/NSVT
Hypertension
Hyperlipidemia
History of mild abnormal stress test 2012
Thoracic aortic ectasia
Chronic renal insufficiency
Adrenal insufficiency
Acquired hypothyroidism
Sleep apnea
Obesity
History of prostate cancer status post radiation
B/L GURPREET
ECHO 02/25/25: EF 50 to 55%, MAC, trace MR, mild AR, mildly dilated aortic root, no significant change compared to prior
Plan:
- Patient presents with weakness and dizziness. He was noted to be hypoxic by EMS
- Hypoxia felt to be multifactorial due to lung disease, suspected ILD per pulmonary as well as component of acute CHF
- He has responded well to IV Lasix and weight is down from admission. Creatinine uptrending to 1.4. IV Lasix stopped and transition to p.o. Lasix 40 mg daily starting 03/01. He was not on diuretic prior to admission
- Despite good diuresis, he has increasing supplemental oxygen requirements, presently on 8 L nasal cannula. Discussed with pulmonary and hospitalist. Plan for right heart cath in a.m. to further evaluate etiology of shortness of breath
- Replete potassium
- Plan for rate control of paroxysmal atrial tachycardia at this time with lopressor. He is continuing to think about anticoagulation with xarelto as well as antiarrhythmic drug therapy but is not ready to commit at this time
-Would consider decreasing or stopping Norvasc to allow for up titration of beta-maura
- echo with results as above
- Troponin peaked at 0.035 and trended down. Has not had complaints of chest pain. He does have history of a mildly abnormal stress test in 2012 and refused additional testing for this. He did have 15 beat run of NSVT on telemetry 02/25, none
overnight. Would consider for eventual ischemic evaluation as an outpatient if patient agreeable. For now we will manage medically as nonischemic myocardial injury
- PT/OT evals
Progress Note - Transitions Manager Rn
Subjective
Date of Service: February 28, 2025
Reports continued shortness of breath. States last urine output this morning than the last 2 mornings
Objective
Labs:
02/28/25 06:07
02/28/25 06:07
Labs
Hgb 12.9 g/dL (13.0-18.0) L 02/28/25 06:07
Hct 38.4 % (39.0-52.0) L 02/28/25 06:07
Plt Count 134 10^3/uL (130-400) D 02/28/25 06:07
Sodium 133 mmol/L (135-145) L 02/28/25 06:07
Potassium 3.2 mmol/L (3.5-5.1) L 02/28/25 06:07
BUN 23 mg/dl (9-20) H 02/28/25 06:07
Creatinine 1.4 mg/dL (0.7-1.3) H 02/28/25 06:07
Glucose 82 mg/dl (70-99) 02/28/25 06:07
Troponins
02/25/25 02/25/25
16:16 21:53
Troponin I 0.035 H* < 0.012 D
Vital Signs and I&O:
Vital Signs
Temp Pulse Resp BP Pulse Ox
97.4 F 85 14 93/53 93
02/28/25 12:36 02/28/25 12:36 02/28/25 12:36 02/28/25 12:36 02/28/25 12:36
Vital Signs
Temp Pulse Resp BP Pulse Ox
97.4 F 85 14 93/53 93
02/28/25 12:36 02/28/25 12:36 02/28/25 12:36 02/28/25 12:36 02/28/25 12:36
Intake & Output
02/26/25 02/27/25 02/28/25 03/01/25
07:59 07:59 07:59 07:59
Intake Total 1200 / 1200 720 / 720 1440 / 1440
Output Total 1250 / 1250 2200 / 2200 1570 / 1570
Balance -50 / -50 -1480 / -1480 -130 / -130
Physical Exam
Physical Exam
GEN: No distress, awake, alert, oriented x3. on supp O2
HEENT: supple, mmm, R eye closed
LUNGS: Crackles B/L bases, no wheezes
CV: Reg, S1/S2, no murmur
ABD: soft, BS+, NT/ND
EXT: No cyanosis, clubbing. 2+ LUE edema with erythema and dressing in place.
NEURO: Gross non-focal
SKIN: Warm, pink, dry. No rash
[2025-02-28] MEDS: CORTEF 5 MG PO (18:11)
[2025-02-28] MEDS: LOVENOX 40 MG SC (18:11)
[2025-03-01] VITALS (7 sets, daily range): BP systolic 104–125; BP diastolic 51–66; BMI 25.6
[2025-03-01] MEDS: ZOSYN 50 IV ×4 (02:12→20:56)
[2025-03-01] MEDS: OCUFLOX 1 DROP RIGHT EYE ×6 (02:16→20:56)
[2025-03-01] MEDS: NON-FORMULARY ITEM 1 DROP OPHTH ×6 (05:52→20:57)
[2025-03-01] MEDS: SYNTHROID 50 MCG PO (05:53)
[2025-03-01 06:11] LABS: Hematocrit 36.7 % (39.0-52.0); Hemoglobin 12.4 g/dL (13.0-18.0); Mean Corp Hgb Conc. 33.8 g/dL (33.0-37.0); Mean Corpuscular Volume 95.8 fL (80.0-94.0); Nucleated Red Blood Cells % 0 % (-); Platelet Count 136 10^3/uL (130-400); Red Cell Dist. Width 16.0 % (11.5-14.5)
[2025-03-01] MEDS: SYMBICORT 80/4.5 MCG INHALER 2 PUFF INH ×2 (06:21→20:31)
[2025-03-01 06:26] LABS: Blood Urea Nitrogen 23 mg/dl (9-20); Calcium 8.4 mg/dl (8.4-10.2); Carbon Dioxide 19 mmol/L (22-30); Chloride 104 mmol/L (98-107); Estimated Creatinine Clearance 50 ml/min; Glucose 71 mg/dl (70-99); Potassium 3.6 mmol/L (3.5-5.1); Sodium 132 mmol/L (135-145); eGFR 55.53
--- NOTE | 2025-03-01 09:21 | W.PN.PUL3 ---
Today's Communication / Plan
-
Remains on 7L NC, repeat CXR 02/28 with worsening bibasilar atelectasis vs edema
RHC planning today, await results
Assessment
-
Patient is an 79-year-old male with previous history of prostate cancer, A-fib, adrenal insufficiency presented to ER for generalized weakness and shortness of breath. He states symptoms have been ongoing since May 2024 when he started
taking Eliquis for A-fib. He has had increasing fatigue, shortness of breath, chest discomfort with progressive weakness and decreased appetite over the past 2 to 3 days.
He is noted to have hypoxemia during this admission placed on [address] obtained indicating significant bronchiectasis with possible underlying ILD. Radiographic changes have been present dating back to 2012 but have been steadily
worsening. We are consulted for eval 02/25/25.
Acute hypoxic respiratory failure
Abnormal CT, possible ILD
SOB
Generalized weakness
RUE cellulitis
Non-Gapped Metabolic Acidosis
Hyponatremia, mild
Suspect GERD/heartburn as a cause for chest discomfort
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
Adrenal Insufficiency
Alcohol abuse
Chronic renal insufficiency, stage II (mild)
Essential (primary) hypertension
History of Malignant Melanoma
History of Prostate Cancer
RUE DVT
Thoracic aortic ectasia
Mixed hyperlipidemia
Sleep apnea
Atrial tachycardia
Paroxysmal Atrial Fibrillation on Eliquis
Hypothyroidism
Right Retina Detachment
Plan
Hypoxemia noted, he is placed on NC--transitioned to 8L midflow, weaned to 7L today
Home O2 evaluation w/ possible home set up
Oxygen requirements are increasing despite treatment
Repeat CXR 02/28- with worsening bibasilar findings--atelectasis vs edema
Prior history of lung disease is NOT noted -- He has never formally been diagnosed with any lung disease and has never seen outpatient pulmonary.
Lifelong nonsmoker, denies exposure history, family history of lung disease.
[facility] with history of malignant melanoma that reportedly involved lung but was considered in remission about 10 years ago per .
Suspect patient has underlying ILD but findings on CT are not consistent wtih UIP (lack of reticular findings and honeycombing)
He has extensive traction and cylindrical bronchiectasis on CT --progressive on subsequent CTs since 2012
Less likely related to underlying melanoma if this was considered treated at [facility], unclear if they were/are aware of lung findings
Prior ECHO results are reviewed indicating no history of heart disease
Eval for chest discomfort ongoing, follows with Dr Garcia
He feels this is related to Eliquis
I suspect GERD/reflux--he notes phlegm production with meals, chest discomfort that improves with Tums, pain in his midsection with meals
Continue pepcid daily
Baseline PFT testing evaluate ILD/RLD, SOB -- Results reviewed, mild restriction, severe diffusion impairment--he will likely need O2 set up at home
Multiple etiologies including PH may be contributing to low O2
I will change his nebs to inhalers that he can continue at home
Will need outpatient pulmonary evaluation in our office for PFTs and 6MWT
Reviewed with patient and at bedside
Risk factors assessed for underlying sleep disordered breathing also noted, recommend outpatient PSG/sleep evaluation
He does not wish to have a sleep study
[facility] planning 03/01
Diagnostic Data
Chest X-Ray: 02/25/25- No acute cardiopulmonary process.
02/28/25-There is increased interstitial opacification as well as increased left basilar airspace opacity. Findings may represent edema/atelectasis or pneumonia.
CT Scan: CHEST 02/25/25- No evidence of central pulmonary embolism. Some mild chronic interstitial changes again seen bilaterally, predominantly in the lower lobes. Superimposed mild prominence of the interstitium and minor widespread bilateral
ground-glass opacification, nonspecific, possibly representing acute pulmonary edematous changes. Stable mild aneurysmal dilatation of the ascending thoracic aorta at 4.1 cm.
Echo: 06/07/24- Normal left ventricular size, wall thickness and systolic function. No regional wall motion abnormalities are seen. LV ejection fraction is 53% by Cabrales's biplane method of discs. Normal diastolic function. Normal right ventricular
size and function. Mitral annular calcification. Mild mitral regurgitation. Aortic sclerosis without stenosis. Dilated aortic root measuring 4.3 cm at the sinuses of Valsalva; 3.9 cm at the sinotubular junction and 4.1 cm in the ascending aorta.
Compared to the previous echo 01/31/24, there is no significant change.
PFT 02/26/25: FEV1 2.28L 75%, FVC 2.69L 65%, ratio 85. Post FEV1 2.31L 76%, no BD response. TLC 5.79L 77%, DLCO 22% (mild restriction, severe diffusion impairment)
Reports and relevant images were personally reviewed.
Total time spent on this consultation __51__ minutes which includes review of history, physical exam, medications, laboratory data, personal review of imaging, extensive review of outpatient records, discussion with care team and respiratory therapy.
Subjective Data
-
Date of Service:
Date of Service: March 01, 2025
Chief Complaint: Pulmonary Follow Up
Subjective:
No new complaints, remains on 7L
Objective Data
Data Reviewed
Vital Signs / I&O / Oxygen:
Vital Signs
Temp Pulse Resp BP Pulse Ox
97.1 F 78 16 104/62 95
03/01/25 07:20 03/01/25 07:20 03/01/25 07:20 03/01/25 07:20 03/01/25 07:20
Intake and Output
02/28/25 03/01/25 03/02/25
06:59 06:59 06:59
Intake Total 1440 / 1440 1200 / 1200
Output Total 1570 / 1570 900 / 900
Balance -130 / -130 300 / 300
SaO2 95
Nasal Cannula flow liters per 6
minute
Physical Exam
General: Comfortable and Other (NAD, weak appearing)
HEENT: Normocephalic, Anicteric and Moist Mucous Membranes
Cardiovascular: S1-S2 and Regular Rhythm
Respiratory: Crackles and Non-Labored Respirations
GI: Soft, Non Distended and Non Tender
Neurology: Awake, Alert, Oriented and No Motor Deficits
Skin: Warm, Dry and Good Color
Labs/Micro/Reports
Lab Data
03/01/25 05:36
03/01/25 05:36
Microbiology
02/25/25 05:57 Blood/Venous Blood Culture - Preliminary
No Growth in 4 days- Final report to follow
02/25/25 05:57 Blood/Venous Blood Culture - Preliminary
No Growth in 4 days- Final report to follow
02/25/25 05:57 Arm - Right Wound Culture - Final
Pseudomonas aeruginosa
02/25/25 05:57 Arm - Right Gram Stain - Final
02/25/25 20:30 Nose MRSA Screen - Final
No Methicillin Resistant Staphylococcus aureus isolated.
[2025-03-01] MEDS: CORTEF 15 MG PO (09:25)
[2025-03-01] MEDS: NORVASC PO (09:25)
[2025-03-01] MEDS: CRESTOR 40 MG PO (09:25)
[2025-03-01] MEDS: LOPRESSOR 12.5 MG PO ×2 (09:27→20:55)
[2025-03-01] MEDS: PEPCID 20 MG PO (09:27)
[2025-03-01] MEDS: LASIX 40 MG PO (09:28)
[2025-03-01] MEDS: NSS (PRESERVATIVE FREE) 10 ML IV (09:28)
[2025-03-01] MEDS: PROTONIX IV 40 MG IV (09:29)
[2025-03-01] MEDS: DESENEX/MITRAZOL/ZEASORB 1 APPLIC TOPICAL ×2 (09:41→20:56)
--- NOTE | 2025-03-01 11:43 | W.PN.HOSP.TC ---
Today's Communication/Plan
-
Monitor vital signs see plan
Still requiring significant oxygen
Plan for right heart cath today
Continue with antibiotic
Assessment / Plan
Assessment / Plan
RUE Cellulitis
Sepsis secondary to the above
- Patient presents with tachycardia, tachypnea - borderline leukocytosis and temperature - and evidence of RUE cellulitis.
- ED ordered cx and shows pseudomonas, continue with Zosyn. Cellulitis appears to be improving
- Follow for clinical improvement.
Acute hypoxic respiratory failure suspect multifactorial secondary to ILD and acute congestive heart failure with preserved ejection fraction
Wean oxygen as tolerated, currently on 8 L
- Prior h/o RUE DVT (s/p surgery / lymph node dissection / etc) and stopped his Eliquis 3 weeks ago.
- Echo with mildly dilated aortic root, preserved EF
- Patient reports symptoms started 05/2024 and blames Eliquis - but this is also when his A-Fib started / was diagnosed.
- In NSR at present. Outpatient notes suggest no significant A-Fib burden appreciated on Kardia evaluations.
Outpatient bell CT with dilation of ascending aorta, 4.1 cm. In the bilateral lower lobes there are mild changes of fibrosis along with dependent aspect of the lungs with associated mild clinical bronchiectasis changes.
Pulmonary following. PFTs 02/26 with severe diffusion impairment. Currently on inhaler
Paroxysmal atrial fibrillation
Stopped Eliquis weeks ago on his own
Currently normal sinus rhythm; intermittent SVT
Echo 02/25 with no significant change from previous echocardiogram.
Speech evaluated, no signs of aspiration
Discussed with cardiology, difficult volume status and giving elevated renal function will need to make sure patient is volume overloaded. Plan for right heart cath 03/01 per cardiology, Chest x-ray 02/28 with increased interstitial opacification.
Findings may represent edema/atelectasis or pneumonia. Do not suspect pneumonia here and in fact likely secondary to edema and atelectasis
INDIA
check Renal/bladder ultrasound
Monitor with diuresis
Hyponatremia
Monitor
Non-Gapped Metabolic Acidosis
- Unclear etiology
improving
Hypokalemia
Replete
Adrenal Insufficiency
- Complaints of general weakness, gait issues, etc potentially due to relative adrenal insufficiency.
- Increase AM dose of hydrocortisone back to 15mg for now (his dose during prior hospital stay). Continue 5mg PM dose.
- Follow BP, labs / lytes, etc for any evidence of persistent adrenal insufficiency.
- Pulse dose steroids if any evidence of decompensation.
Benign Hypertension
- Stable. Continue amlodipine with holding parameters.
Hypothyroidism
- Continue current T4 supplementation.
TSH 3.4
Right Retina Detachment
- Followed previously at [facility] but now followed locally (recent change).
- On multiple eye drops
- Sutures remain in place in the R eyelids.
Right upper extremity chronic lymphedema
History of Malignancy Melanoma
History of Prostate Cancer
- Recent CT showed no evidence of recurrence.
- s/p axillary LN dissection on the R which predisposes to cellulitis, lymphedema, etc.
Moderate Protein Calorie Malnutrition
DVT Prophylaxis
History of RUE DVT
lovenox
Code Status: Full
General: No acute distress
HEENT: Nasal cannula, right eyelid sutured
Respiratory: Other (Decreased BS at bases - otherwise clear.)
Cardiac: S1/S2, Regular Rhythm and Murmur (II/ ABBEY)
GI: Soft, Non Tender, Non Distended and Normal Bowel Sounds
Musculoskeletal: Other (1+ edema RUE. Improving erythema)
Neuro: AO x 3
I spent a total of 52 minutes with the patient or on the floor. More than 50% of this time involved counseling and coordination of care.
Anticipated Discharge: > 48 hours
Subjective/Interval History
-
Date of Service: March 01, 2025
Denies pain
Objective Data
-
Labs:
Laboratory Results
03/01/25
05:36
WBC 6.8
Hgb 12.4 L
Hct 36.7 L
Plt Count 136
Sodium 132 L
Potassium 3.6
Chloride 104
Carbon Dioxide 19 L
BUN 23 H
Creatinine 1.3
Glucose 71
Calcium 8.4
Vital Signs:
Vital Signs
Temp Pulse Resp BP Pulse Ox
97.1 F 78 16 104/62 95
03/01/25 07:20 03/01/25 07:20 03/01/25 07:20 03/01/25 07:20 03/01/25 07:20
I&O
02/28/25 03/01/25 03/02/25
06:59 06:59 06:59
Intake Total 1440 / 1440 1200 / 1200
Output Total 1570 / 1570 900 / 900
Balance -130 / -130 300 / 300
--- NOTE | 2025-03-01 12:58 | CM ---
CM following for discharge planning needs. Pt admitted from home with CHF, new O2 needs, currently on 8 liters of O2; Pt for right heart cath today. Discharge anticipated >48 hours.
Plan: Watch for home O2 needs, does not have O2 at home.
Home Health recommended by PT
--- NOTE | 2025-03-01 18:21 | ITS.CL.CATH ---
Plant [employer] Leader - Catheterization
Cardiac Catheterization
Procedure Report:
RIGHT HEART CATHETERIZATION
Date of Procedure: March 01, 2025
Referring: Dr. Tone Garcia
INDICATION: Assess invasive hemodynamic
Hemodynamics (mmHg):
RA (m) : 8
RV (s/d,m) : 26/, 7
PA (s/d, m) : , 22
PCWP (m) : 12
PA saturation: 52.9% on room air
AO saturation: 91.0% on room air--noninvasively through pulse oximetry
RA saturation: 53.4% on room air
Cardiac Output : 3.94 L/min by Cat calculate
Cardiac Index : 1.9 L/min/m-2 by Cat calculate
Pulmonary vascular resistance: 3.55 doan unit
SEDATION: 16 minutes of procedural sedation was utilized. IV Midazolam and IV Fentanyl were administered. An independent pediatrician/medical doctor was present to assist with and help manage the patient's level of consciousness and physiologic status.
RADIATION SUMMARY: Fluoro Time (min): 1.8, Dose (mGy): 26.6, DAP (Gy.cm2) : 3.56
CONCLUSION:
1. Normal left and right sided filling pressures with borderline low cardiac output. Elevated pulmonary vascular resistance.
Yenny Mix MD, FAC, [facility]
[2025-03-01] MEDS: CORTEF 5 MG PO (18:49)
[2025-03-01] MEDS: LOVENOX 40 MG SC (18:51)
[2025-03-02] VITALS (7 sets, daily range): BP systolic 105–119; BP diastolic 58–65; PULSE 78; O2SAT 96; BMI 25.0; BMI 25.4
[2025-03-02] MEDS: OCUFLOX 1 DROP RIGHT EYE ×6 (02:16→21:02)
[2025-03-02] MEDS: ZOSYN 50 IV ×4 (02:16→20:51)
[2025-03-02] MEDS: SYMBICORT 80/4.5 MCG INHALER 2 PUFF INH ×2 (07:20→19:43)
[2025-03-02] MEDS: NON-FORMULARY ITEM 1 DROP OPHTH ×6 (07:35→21:09)
[2025-03-02] MEDS: SYNTHROID 50 MCG PO (07:35)
[2025-03-02 08:21] LABS: Hematocrit 38.9 % (39.0-52.0); Hemoglobin 13.2 g/dL (13.0-18.0); Mean Corp Hgb Conc. 33.9 g/dL (33.0-37.0); Mean Corpuscular Volume 96.8 fL (80.0-94.0); Nucleated Red Blood Cells % 0 % (-); Platelet Count 120 10^3/uL (130-400); Red Cell Dist. Width 15.8 % (11.5-14.5)
[2025-03-02] MEDS: LASIX 40 MG PO (08:52)
[2025-03-02] MEDS: PEPCID 20 MG PO (08:52)
[2025-03-02] MEDS: NORVASC 10 MG PO (08:52)
[2025-03-02] MEDS: LOPRESSOR 12.5 MG PO ×2 (08:52→20:51)
[2025-03-02] MEDS: PROTONIX IV 40 MG IV (08:53)
[2025-03-02] MEDS: NSS (PRESERVATIVE FREE) 10 ML IV (08:53)
[2025-03-02] MEDS: CORTEF 15 MG PO (08:59)
[2025-03-02] MEDS: CRESTOR 40 MG PO (08:59)
[2025-03-02 09:00] LABS: Blood Urea Nitrogen 24 mg/dl (9-20); Calcium 8.6 mg/dl (8.4-10.2); Carbon Dioxide 21 mmol/L (22-30); Chloride 103 mmol/L (98-107); Estimated Creatinine Clearance 46 ml/min; Glucose 62 mg/dl (70-99); Potassium 3.0 mmol/L (3.5-5.1); Sodium 135 mmol/L (135-145); eGFR 50.81
[2025-03-02] MEDS: DESENEX/MITRAZOL/ZEASORB 1 APPLIC TOPICAL ×2 (09:02→20:51)
[2025-03-02] MEDS: FLUSH (NSS) 2 FLUSH IV ×2 (09:09→14:26)
--- NOTE | 2025-03-02 12:07 | W.PN.HOSP.TC ---
Today's Communication/Plan
-
Monitor vital signs and see plan
Pulmonary to see today
Continue with inhalers
Wean oxygen as tolerated
Likely need home O2
Monitor renal function
cw abx
Assessment / Plan
Assessment / Plan
RUE Cellulitis
Sepsis secondary to the above
- Patient presents with tachycardia, tachypnea - borderline leukocytosis and temperature - and evidence of RUE cellulitis.
- ED ordered cx and shows pseudomonas, continue with Zosyn. Cellulitis appears to be improving
- Follow for clinical improvement.
Acute hypoxic respiratory failure suspect multifactorial secondary to ILD and acute congestive heart failure with preserved ejection fraction
Wean oxygen as tolerated, currently on 6 L. will likely need home o2
- Prior h/o RUE DVT (s/p surgery / lymph node dissection / etc) and stopped his Eliquis 3 weeks ago.
- Echo with mildly dilated aortic root, preserved EF
- Patient reports symptoms started 05/2024 and blames Eliquis - but this is also when his A-Fib started / was diagnosed.
- In NSR at present. Outpatient notes suggest no significant A-Fib burden
Outpatient bell CT with dilation of ascending aorta, 4.1 cm. In the bilateral lower lobes there are mild changes of fibrosis along with dependent aspect of the lungs with associated mild clinical bronchiectasis changes.
Pulmonary following. PFTs 02/26 with severe diffusion impairment. Currently on inhaler
Paroxysmal atrial fibrillation
Stopped Eliquis weeks ago on his own
Currently normal sinus rhythm; intermittent SVT
Echo 02/25 with no significant change from previous echocardiogram.
Speech evaluated, no signs of aspiration
Discussed with cardiology, difficult volume status and giving elevated renal function will need to make sure patient is volume overloaded. s/p right heart cath 03/01 with normal pressures. Does have high pulmonary vascular resistance, Chest x-ray
02/28 with increased interstitial opacification. Findings may represent edema/atelectasis or pneumonia. Do not suspect pneumonia here and in fact likely secondary to atelectasis
INDIA
check Renal/bladder ultrasound without hydro
Monitor with diuresis
Hypokalemia
Replete
Hyponatremia
Monitor
Non-Gapped Metabolic Acidosis
- Unclear etiology
improving
Adrenal Insufficiency
- Complaints of general weakness, gait issues, etc potentially due to relative adrenal insufficiency.
- Increase AM dose of hydrocortisone back to 15mg for now (his dose during prior hospital stay). Continue 5mg PM dose.
- Follow BP, labs / lytes, etc for any evidence of persistent adrenal insufficiency.
- Pulse dose steroids if any evidence of decompensation.
Benign Hypertension
- Stable. Continue amlodipine with holding parameters.
Hypothyroidism
- Continue current T4 supplementation.
TSH 3.4
Right Retina Detachment
- Followed previously at [facility] but now followed locally (recent change).
- On multiple eye drops
- Sutures remain in place in the R eyelids.
Right upper extremity chronic lymphedema
History of Malignancy Melanoma
History of Prostate Cancer
- Recent CT showed no evidence of recurrence.
- s/p axillary LN dissection on the R which predisposes to cellulitis, lymphedema, etc.
Moderate Protein Calorie Malnutrition
DVT Prophylaxis
History of RUE DVT
lovenox
Code Status: Full
General: No acute distress
HEENT: Nasal cannula, right eyelid sutured
Respiratory: Other (Decreased BS at bases - otherwise clear.)
Cardiac: S1/S2, Regular Rhythm and Murmur (II/ ABBEY)
GI: Soft, Non Tender, Non Distended and Normal Bowel Sounds
Musculoskeletal: Other (1+ edema RUE. Improving erythema)
Neuro: AO x 3
I spent a total of 52 minutes with the patient or on the floor. More than 50% of this time involved counseling and coordination of care.
Anticipated Discharge: 24 - 48 hours
Subjective/Interval History
-
Date of Service: March 02, 2025
continues to be on o2
Objective Data
-
Labs:
Laboratory Results
03/02/25
08:09
WBC 7.8
Hgb 13.2
Hct 38.9 L
Plt Count 120 L
Sodium 135
Potassium 3.0 L
Chloride 103
Carbon Dioxide 21 L
BUN 24 H
Creatinine 1.4 H
Glucose 62 L
Calcium 8.6
Vital Signs:
Vital Signs
Temp Pulse Resp BP Pulse Ox
97.8 F 84 21 114/60 94
03/02/25 09:16 03/02/25 09:16 03/02/25 09:16 03/02/25 09:16 03/02/25 09:16
I&O
03/01/25 03/02/25 03/03/25
06:59 06:59 06:59
Intake Total 1200 / 1200 720 / 720
Output Total 900 / 900 650 / 650
Balance 300 / 300 70 / 70
[2025-03-02] MEDS: KCL 40 MEQ PO (12:25)
--- NOTE | 2025-03-02 12:33 | W.PN.CARDCBS ---
Today's Communication / Plan
-
Right heart cath suggest he is not volume overloaded.
Would hold off on any further aggressive diuresis.
Impression / Plan
-
Primary Artificial Flowers Dyer: Dr. Garcia
Assessment:
Presentation with weakness, dizziness
Right upper extremity cellulitis
Hypoxia
Concern for acute HFpEF
Concern for ILD
Elevated troponin
Paroxysmal atrial fibrillation/atrial tachycardia, diagnosed 05/2024
Intolerance to Eliquis due to ecchymoses, fatigue
Malignant melanoma, stage IV status post right axillary node dissection and radiation, felt to be in remission
Chronic right upper extremity lymphedema with history of DVT
PVCs/NSVT
Hypertension
Hyperlipidemia
History of mild abnormal stress test 2012
Thoracic aortic ectasia
Chronic renal insufficiency
Adrenal insufficiency
Acquired hypothyroidism
Sleep apnea
Obesity
History of prostate cancer status post radiation
B/L GURPREET
ECHO 02/25/25: EF 50 to 55%, MAC, trace MR, mild AR, mildly dilated aortic root, no significant change compared to prior
Plan:
Patient presented with weakness and dizziness. He was noted to be hypoxic by EMS
Hypoxia felt to be multifactorial due to lung disease, suspected ILD per pulmonary as well as component of acute CHF
He has responded well to IV Lasix and weight is down approximately 15 pounds from admission. Creatinine uptrending to 1.4. IV Lasix stopped and transition to p.o. Lasix 40 mg daily starting 03/01. He was not on diuretic prior to admission
Despite brisk diuresis with significant weight loss he has increasing supplemental oxygen requirements,
Right heart catheterization was performed March 01, 2025
RA (m) : 8
RV (s/d,m) : 26/4, 7
PA (s/d, m) : 29/17, 22
PCWP (m) : 12
PA saturation: 52.9% on room air
AO saturation: 91.0% on room air--noninvasively through pulse oximetry
RA saturation: 53.4% on room air
Cardiac Output : 3.94 L/min by Cat calculate
Cardiac Index : 1.9 L/min/m-2 by Cat calculate
Pulmonary vascular resistance: 3.55 doan unit
Findings consistent with normal filling pressures, borderline cardiac index and elevated pulmonary vascular resistance.
Findings suggest he is not volume overloaded
Would hold on any further aggressive diuresis. Maintaining current dose of oral Lasix at 40 mg daily is reasonable for now.
Hypokalemic
replete potassium
Paroxysmal atrial tachycardia
Acute management is rate control of PAT
Maintain metoprolol 12.5 mg twice daily
Troponin peaked at 0.035 and trended down. Has not had complaints of chest pain. He does have history of a mildly abnormal stress test in 2012 and refused additional testing for this. He did have 15 beat run of NSVT on telemetry 02/25, none
overnight. Would consider for eventual ischemic evaluation as an outpatient if patient agreeable. For now we will manage medically as nonischemic myocardial injury
PT/OT evals
Total time spent today was 50 minutes in preparing to see the patient, seeing the patient and coordination of care. This included review of recent laboratory evaluations, cardiact testing, imaging studies, primary care rtecords, specialty
consultations, hospital records, as well as personally interviewing and examining the patient, which included discussion of their tests, review/ordering medications, and communicating with other healthcare professionals and also treatment planning
as well as counseling.
Progress Note - Artificial Flowers Dyer
Subjective
Date of Service: March 02, 2025
He tells me that his shortness of breath is unchanged. No chest pain
Objective
Labs:
03/02/25 08:09
03/02/25 08:09
Labs
Hgb 13.2 g/dL (13.0-18.0) 03/02/25 08:09
Hct 38.9 % (39.0-52.0) L 03/02/25 08:09
Plt Count 120 10^3/uL (130-400) L 03/02/25 08:09
Sodium 135 mmol/L (135-145) 03/02/25 08:09
Potassium 3.0 mmol/L (3.5-5.1) L 03/02/25 08:09
BUN 24 mg/dl (9-20) H 03/02/25 08:09
Creatinine 1.4 mg/dL (0.7-1.3) H 03/02/25 08:09
Glucose 62 mg/dl (70-99) L 03/02/25 08:09
Vital Signs and I&O:
Vital Signs
Temp Pulse Resp BP Pulse Ox
97.8 F 84 21 114/60 94
03/02/25 09:16 03/02/25 09:16 03/02/25 09:16 03/02/25 09:16 03/02/25 09:16
Vital Signs
Temp Pulse Resp BP Pulse Ox
97.8 F 84 21 114/60 94
03/02/25 09:16 03/02/25 09:16 03/02/25 09:16 03/02/25 09:16 03/02/25 09:16
Intake & Output
02/28/25 03/01/25 03/02/25 03/03/25
06:59 06:59 06:59 06:59
Intake Total 1440 / 1440 1200 / 1200 720 / 720
Output Total 1570 / 1570 900 / 900 650 / 650
Balance -130 / -130 300 / 300 70 / 70
Physical Exam
Physical Exam
Laying flat on his back in bed and appears comfortable
Regular rate and rhythm with normal S1 and S2, no S3 no S4 degree 1/6 apical holosystolic murmur no rubs. PMI is normally placed
Lungs are clear to auscultation bilaterally without wheezes rales or rhonchi
Abdomen soft nontender nondistended
Extremities +1 pretibial edema bilaterally
[2025-03-02] MEDS: TYLENOL 650 MG PO ×2 (14:46→21:27)
--- NOTE | 2025-03-02 15:19 | W.PN.PUL3 ---
Today's Communication / Plan
-
- DC hydrocortisone
- Initiate prednisone 60 mg daily with plan to drop by 10 mg every 5 days
- Outpatient follow-up with pulmonary clinic, if favorably response to steroid, will consider initiation of mycophenolate alternatively patient will need cryobiopsy of pulmonary parenchyma for further evaluation
- Check connective tissue disease workup including rheumatoid factor, NAOMI, CK level.
Assessment
-
Patient is an 79-year-old male with previous history of prostate cancer, A-fib, adrenal insufficiency presented to ER for generalized weakness and shortness of breath. He states symptoms have been ongoing since May 2024 when he started
taking Eliquis for A-fib. He has had increasing fatigue, shortness of breath, chest discomfort with progressive weakness and decreased appetite over the past 2 to 3 days.
He is noted to have hypoxemia during this admission placed on [address] obtained indicating significant bronchiectasis with possible underlying ILD. Radiographic changes have been present dating back to 2012 but have been steadily
worsening. We are consulted for eval 02/25/25.
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
Adrenal Insufficiency
Alcohol abuse
Chronic renal insufficiency, stage II (mild)
Essential (primary) hypertension
History of Malignant Melanoma
History of Prostate Cancer
RUE DVT
Thoracic aortic ectasia
Mixed hyperlipidemia
Sleep apnea
Atrial tachycardia
Paroxysmal Atrial Fibrillation on Eliquis
Hypothyroidism
Right Retina Detachment
Assessment and plan:
#1. Acute hypoxic respiratory failure, suspect ILD
- CT scan reviewed, suggestive of interstitial lung disease predominantly in the lower lobes
-Radiological features are not typical for UIP. Presence of groundglass changes suggestive of ongoing inflammation, ? NSIP
-Right heart cath reviewed, normal wedge pressure essentially rules out volume overload as etiology for groundglass opacities
-Discussed with patient and patient's daughter at bedside, will pursue workup for connective tissue disorders, RA panel, NAOMI, CK level etc.
-No history of exposure to birds, mold at home or pets
-Will initiate prednisone 60 mg daily with a trial to lower by 10 mg every 5 days.
-Patient will be seen in pulmonary clinic in the next few weeks, if he responds favorably to prednisone, considering presence of groundglass changes, we will consider initiation of mycophenolate as outpatient
-If patient does not respond favorably, may consider additional workup including a cryobiopsy for further evaluation of parenchyma
-Patient has never smoked in his life and no prior diagnosis of COPD or asthma. Unclear if any benefit to inhaler therapies
-Patient will need 6-minute walk test, full pulmonary function testing including lung volumes and diffusion capacity assessment as outpatient.
-Will arrange outpatient follow-up with [facility] pulmonary clinic
#2. Mild Pulmonary HTN
- Mean pulmonary artery pressure 22, only minimally elevated with elevated PVR, 3.4
- Essentially mild precapillary pulmonary hypertension, Group I or group III related to underlying ILD and hypoxia
- Depending upon clinical course may consider a trial of vasodilators as outpatient however Group 1 PAH would not explain interstitial changes noted on the imaging.
Total time spent on this consultation/encounter __45__ minutes which includes review of history, physical exam, medications, laboratory data, personal review of imaging, extensive review of outpatient records, discussion with care team and
respiratory therapy.
Diagnostic Data
Chest X-Ray: 02/25/25- No acute cardiopulmonary process.
02/28/25-There is increased interstitial opacification as well as increased left basilar airspace opacity. Findings may represent edema/atelectasis or pneumonia.
CT Scan: CHEST 02/25/25- No evidence of central pulmonary embolism. Some mild chronic interstitial changes again seen bilaterally, predominantly in the lower lobes. Superimposed mild prominence of the interstitium and minor widespread bilateral
ground-glass opacification, nonspecific, possibly representing acute pulmonary edematous changes. Stable mild aneurysmal dilatation of the ascending thoracic aorta at 4.1 cm.
Echo: 06/07/24- Normal left ventricular size, wall thickness and systolic function. No regional wall motion abnormalities are seen. LV ejection fraction is 53% by Cabrales's biplane method of discs. Normal diastolic function. Normal right ventricular
size and function. Mitral annular calcification. Mild mitral regurgitation. Aortic sclerosis without stenosis. Dilated aortic root measuring 4.3 cm at the sinuses of Valsalva; 3.9 cm at the sinotubular junction and 4.1 cm in the ascending aorta.
Compared to the previous echo 01/31/24, there is no significant change.
PFT 02/26/25: FEV1 2.28L 75%, FVC 2.69L 65%, ratio 85. Post FEV1 2.31L 76%, no BD response. TLC 5.79L 77%, DLCO 22% (mild restriction, severe diffusion impairment)
Reports and relevant images were personally reviewed.
Total time spent on this consultation __51__ minutes which includes review of history, physical exam, medications, laboratory data, personal review of imaging, extensive review of outpatient records, discussion with care team and respiratory therapy.
Subjective Data
-
Date of Service:
Date of Service: March 02, 2025
Chief Complaint: Pulmonary Follow Up
Subjective:
Patient comfortably lying in bed, on 4 L
Review of Systems
Genitourinary: Other (All 14 systems reviewed and negative except as stated above in the history of present illness.)
Objective Data
Data Reviewed
Vital Signs / I&O / Oxygen:
Vital Signs
Temp Pulse Resp BP Pulse Ox
97.5 F 80 21 105/63 96
03/02/25 12:39 03/02/25 12:39 03/02/25 12:39 03/02/25 12:39 03/02/25 12:39
Intake and Output
03/01/25 03/02/25 03/03/25
06:59 06:59 06:59
Intake Total 1200 / 1200 720 / 720
Output Total 900 / 900 650 / 650
Balance 300 / 300 70 / 70
SaO2 96
Nasal Cannula flow liters per 6
minute
Physical Exam
General: Comfortable and Other (NAD, weak appearing)
HEENT: Normocephalic, Anicteric and Moist Mucous Membranes
Cardiovascular: S1-S2 and Regular Rhythm
Respiratory: Crackles (Inspiratory Rales on exam) and Non-Labored Respirations
GI: Soft, Non Distended and Non Tender
Neurology: Awake, Alert, Oriented and No Motor Deficits
Skin: Warm, Dry and Good Color
Labs/Micro/Reports
Lab Data
03/02/25 08:09
03/02/25 08:09
Microbiology
02/25/25 05:57 Blood/Venous Blood Culture - Final
No Growth - Final Report
02/25/25 05:57 Blood/Venous Blood Culture - Final
No Growth - Final Report
[2025-03-02] MEDS: DELTASONE 60 MG PO (15:48)
[2025-03-02] MEDS: LOVENOX 40 MG SC (17:48)
[2025-03-03] MEDS: ZOSYN 50 IV ×2 (01:57→10:09)
[2025-03-03] MEDS: OCUFLOX 1 DROP RIGHT EYE ×6 (01:58→21:26)
[2025-03-03 03:36] VITALS: BP 119/64
[2025-03-03 06:00] VITALS: BMI 25.4
[2025-03-03] MEDS: SYNTHROID 50 MCG PO (06:12)
[2025-03-03] MEDS: NON-FORMULARY ITEM 1 DROP OPHTH ×6 (06:12→21:04)
[2025-03-03 07:30] LABS: Hematocrit 37.1 % (39.0-52.0); Hemoglobin 12.9 g/dL (13.0-18.0); Mean Corp Hgb Conc. 34.8 g/dL (33.0-37.0); Mean Corpuscular Volume 95.1 fL (80.0-94.0); Nucleated Red Blood Cells % 0 % (-); Platelet Count 138 10^3/uL (130-400); Red Cell Dist. Width 15.6 % (11.5-14.5)
[2025-03-03] MEDS: SYMBICORT 80/4.5 MCG INHALER 2 PUFF INH ×2 (07:39→20:21)
[2025-03-03 07:42] LABS: Blood Urea Nitrogen 28 mg/dl (9-20); Calcium 9.0 mg/dl (8.4-10.2); Carbon Dioxide 21 mmol/L (22-30); Chloride 102 mmol/L (98-107); Estimated Creatinine Clearance 43 ml/min; Glucose 133 mg/dl (70-99); Potassium 3.5 mmol/L (3.5-5.1); Sodium 135 mmol/L (135-145); eGFR 46.77
[2025-03-03 07:56] VITALS: BP 116/64
[2025-03-03] MEDS: DELTASONE 60 MG PO (10:07)
[2025-03-03] MEDS: NORVASC 10 MG PO (10:07)
[2025-03-03] MEDS: PEPCID 20 MG PO (10:07)
[2025-03-03] MEDS: LOPRESSOR 12.5 MG PO ×2 (10:08→19:59)
[2025-03-03] MEDS: LASIX 40 MG PO (10:08)
[2025-03-03] MEDS: PROTONIX IV 40 MG IV (10:08)
[2025-03-03] MEDS: NSS (PRESERVATIVE FREE) 10 ML IV (10:09)
[2025-03-03] MEDS: CRESTOR 40 MG PO (10:15)
[2025-03-03] MEDS: DESENEX/MITRAZOL/ZEASORB 1 APPLIC TOPICAL (10:15)
--- NOTE | 2025-03-03 10:50 | W.PN.CARDCBS ---
Today's Communication / Plan
-
Stop Lasix
Will sign off
Impression / Plan
-
Primary Telephonic Case Manager: Dr. Garcia
Assessment:
Presentation with weakness, dizziness
Right upper extremity cellulitis
Hypoxia
Concern for acute HFpEF
Concern for ILD
Elevated troponin
Paroxysmal atrial fibrillation/atrial tachycardia, diagnosed 05/2024
Intolerance to Eliquis due to ecchymoses, fatigue
Malignant melanoma, stage IV status post right axillary node dissection and radiation, felt to be in remission
Chronic right upper extremity lymphedema with history of DVT
PVCs/NSVT
Hypertension
Hyperlipidemia
History of mild abnormal stress test 2012
Thoracic aortic ectasia
Chronic renal insufficiency
Adrenal insufficiency
Acquired hypothyroidism
Sleep apnea
Obesity
History of prostate cancer status post radiation
B/L GURPREET
ECHO 02/25/25: EF 50 to 55%, MAC, trace MR, mild AR, mildly dilated aortic root, no significant change compared to prior
Plan:
Patient presented with weakness and dizziness. He was noted to be hypoxic by EMS
Hypoxia felt to be multifactorial due to lung disease, suspected ILD per pulmonary as well as component of acute CHF
He has responded well to IV Lasix and weight is down approximately 15 pounds from admission. Creatinine uptrending to 1.4. IV Lasix stopped and transition to p.o. Lasix 40 mg daily starting 03/01. He was not on diuretic prior to admission
Despite brisk diuresis with significant weight loss he has increasing supplemental oxygen requirements,
Right heart catheterization was performed March 01, 2025
RA (m) : 8
RV (s/d,m) : 26/, 7
PA (s/d, m) : , 22
PCWP (m) : 12
PA saturation: 52.9% on room air
AO saturation: 91.0% on room air--noninvasively through pulse oximetry
RA saturation: 53.4% on room air
Cardiac Output : 3.94 L/min by Cat calculate
Cardiac Index : 1.9 L/min/m-2 by Cat calculate
Pulmonary vascular resistance: 3.55 doan unit
Findings consistent with normal filling pressures, borderline cardiac index and elevated pulmonary vascular resistance.
Findings suggest he is not volume overloaded
Would hold on any further diuresis. Creat is up, stop Lasix. Was not on Lasix as outpatient.
Hypokalemic
replete potassium
Paroxysmal atrial tachycardia
Acute management is rate control of PAT
Maintain metoprolol 12.5 mg twice daily
Troponin peaked at 0.035 and trended down. Has not had complaints of chest pain. He does have history of a mildly abnormal stress test in 2012 and refused additional testing for this. He did have 15 beat run of NSVT on telemetry 02/25, none
overnight. Would consider for eventual ischemic evaluation as an outpatient if patient agreeable. For now we will manage medically as nonischemic myocardial injury
PT/OT evals
Cardiac status stable, will sign off
Progress Note - Telephonic Case Manager
Subjective
Date of Service: March 03, 2025
No CP SOB or palps CERRATO with ambulation this AM
Objective
Labs:
03/03/25 06:39
03/03/25 06:39
Labs
Hgb 12.9 g/dL (13.0-18.0) L 03/03/25 06:39
Hct 37.1 % (39.0-52.0) L 03/03/25 06:39
Plt Count 138 10^3/uL (130-400) 03/03/25 06:39
Sodium 135 mmol/L (135-145) 03/03/25 06:39
Potassium 3.5 mmol/L (3.5-5.1) 03/03/25 06:39
BUN 28 mg/dl (9-20) H 03/03/25 06:39
Creatinine 1.5 mg/dL (0.7-1.3) H 03/03/25 06:39
Glucose 133 mg/dl (70-99) H 03/03/25 06:39
Vital Signs and I&O:
Vital Signs
Temp Pulse Resp BP Pulse Ox
97.3 F 880 21 116/61 98
03/03/25 07:56 03/03/25 10:08 03/03/25 07:56 03/03/25 10:08 03/03/25 07:56
Vital Signs
Temp Pulse Resp BP Pulse Ox
97.3 F 880 21 116/61 98
03/03/25 07:56 03/03/25 10:08 03/03/25 07:56 03/03/25 10:08 03/03/25 07:56
Intake & Output
03/01/25 03/02/25 03/03/25 03/04/25
06:59 06:59 06:59 06:59
Intake Total 1200 / 1200 720 / 720 1460 / 1460
Output Total 900 / 900 650 / 650 625 / 625
Balance 300 / 300 70 / 70 835 / 835
Physical Exam
Physical Exam
Appears comfortable
Regular rate and rhythm with normal S1 and S2, no S3 no S4 degree 1/6 apical holosystolic murmur no rubs. PMI is normally placed
Lungs are clear to auscultation bilaterally without wheezes rales or rhonchi
Abdomen soft nontender nondistended
Extremities +1 pretibial edema bilaterally
[2025-03-03] MEDS: TYLENOL 650 MG PO (10:55)
--- NOTE | 2025-03-03 11:29 | W.PN.HOSP.TC ---
Today's Communication/Plan
-
monitor vital signs and see plan
PT
Will need home O2 evaluation again tomorrow
Discussed with pulmonary, on discharge will send on prednisone taper
Continue with Lasix
Assessment / Plan
Assessment / Plan
RUE Cellulitis
Sepsis secondary to the above
- Patient presents with tachycardia, tachypnea - borderline leukocytosis and temperature - and evidence of RUE cellulitis.
- ED ordered cx and shows pseudomonas, changed to ciprofloxacin to complete course. Cellulitis appears to be improving
- Follow for clinical improvement.
Acute hypoxic respiratory failure suspect multifactorial secondary to ILD and acute congestive heart failure with preserved ejection fraction
Wean oxygen as tolerated, currently on 5 L. Was not compliant with home O2 evaluation today, repeat attempt tomorrow
- Prior h/o RUE DVT (s/p surgery / lymph node dissection / etc) and stopped his Eliquis 3 weeks ago.
- Echo with mildly dilated aortic root, preserved EF
- Patient reports symptoms started 05/2024 and blames Eliquis - but this is also when his A-Fib started / was diagnosed.
- In NSR at present. Outpatient notes suggest no significant A-Fib burden
Outpatient bell CT with dilation of ascending aorta, 4.1 cm. In the bilateral lower lobes there are mild changes of fibrosis along with dependent aspect of the lungs with associated mild clinical bronchiectasis changes.
Pulmonary following. PFTs 02/26 with severe diffusion impairment. Currently on inhaler for. Discussed with pulmonary, will need albuterol as needed and prednisone, start with 60 mg daily and decrease by 10 every 5 days and remain on 10 until
further instruction from pulmonary
Paroxysmal atrial fibrillation
Stopped Eliquis weeks ago on his own
Currently normal sinus rhythm; intermittent SVT
Echo 02/25 with no significant change from previous echocardiogram.
Speech evaluated, no signs of aspiration
Discussed with cardiology, difficult volume status and giving elevated renal function will need to make sure patient is volume overloaded. s/p right heart cath 03/01 with normal pressures. Does have high pulmonary vascular resistance, Chest x-ray
02/28 with increased interstitial opacification. Findings may represent edema/atelectasis or pneumonia. Do not suspect pneumonia here and in fact likely secondary to atelectasis
[place]
Renal/bladder ultrasound without hydro
Monitor with diuresis
Hypokalemia
Replete as needed
Hyponatremia
resolved
Non-Gapped Metabolic Acidosis
- Unclear etiology
improving
Adrenal Insufficiency
- Complaints of general weakness, gait issues, etc potentially due to relative adrenal insufficiency.
Used to be on hydrocortisone which is now stopped since on prednisone. Discussed with pulmonary they want patient to go on 10 mg prednisone after the taper is done and they will decide further
- Follow BP, labs / lytes, etc for any evidence of persistent adrenal insufficiency.
- Pulse dose steroids if any evidence of decompensation.
Benign Hypertension
- Stable. Continue amlodipine with holding parameters.
Hypothyroidism
- Continue current T4 supplementation.
TSH 3.4
Right Retina Detachment
- Followed previously at [facility] but now followed locally (recent change).
- On multiple eye drops
- Sutures remain in place in the R eyelids.
Right upper extremity chronic lymphedema
History of Malignancy Melanoma
History of Prostate Cancer
- Recent CT showed no evidence of recurrence.
- s/p axillary LN dissection on the R which predisposes to cellulitis, lymphedema, etc.
Moderate Protein Calorie Malnutrition
DVT Prophylaxis
History of RUE DVT
lovenox
Code Status: Full
General: No acute distress
HEENT: Nasal cannula, right eyelid sutured
Respiratory: Other (Decreased BS at bases - otherwise clear.)
Cardiac: S1/S2, Regular Rhythm and Murmur (II/ ABBEY)
GI: Soft, Non Tender, Non Distended and Normal Bowel Sounds
Musculoskeletal: Other (1+ edema RUE. Improving erythema)
Neuro: AO x 3
I spent a total of 53 minutes with the patient or on the floor. More than 50% of this time involved counseling and coordination of care.
Anticipated Discharge: Within 24 hours
Subjective/Interval History
-
Date of Service: March 03, 2025
hypoxic
Objective Data
-
Labs:
Laboratory Results
03/03/25
06:39
WBC 6.5
Hgb 12.9 L
Hct 37.1 L
Plt Count 138
Sodium 135
Potassium 3.5
Chloride 102
Carbon Dioxide 21 L
BUN 28 H
Creatinine 1.5 H
Glucose 133 H
Calcium 9.0
Vital Signs:
Vital Signs
Temp Pulse Resp BP Pulse Ox
97.3 F 880 21 116/61 98
03/03/25 07:56 03/03/25 10:08 03/03/25 07:56 03/03/25 10:08 03/03/25 07:56
I&O
03/02/25 03/03/25 03/04/25
06:59 06:59 06:59
Intake Total 720 / 720 1460 / 1460
Output Total 650 / 650 625 / 625
Balance 70 / 70 835 / 835
[2025-03-03 12:06] VITALS: BP 124/64
[2025-03-03] MEDS: CIPRO 500 MG PO ×2 (12:59→19:59)
[2025-03-03 16:17] VITALS: BP 118/62
[2025-03-03] MEDS: LOVENOX 40 MG SC (17:57)
--- NOTE | 2025-03-03 18:30 | PTCARENOTE ---
Chocolate Ensure administered to patient as ordered
--- NOTE | 2025-03-03 18:35 | W.PN.PUL3 ---
Today's Communication / Plan
-
- Continue prednisone taper as advised
- Discharge planning
Assessment
-
Patient is an 79-year-old male with previous history of prostate cancer, A-fib, adrenal insufficiency presented to ER for generalized weakness and shortness of breath. He states symptoms have been ongoing since May 2024 when he started
taking Eliquis for A-fib. He has had increasing fatigue, shortness of breath, chest discomfort with progressive weakness and decreased appetite over the past 2 to 3 days.
He is noted to have hypoxemia during this admission placed on [address] obtained indicating significant bronchiectasis with possible underlying ILD. Radiographic changes have been present dating back to 2012 but have been steadily
worsening. We are consulted for eval 02/25/25.
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
Adrenal Insufficiency
Alcohol abuse
Chronic renal insufficiency, stage II (mild)
Essential (primary) hypertension
History of Malignant Melanoma
History of Prostate Cancer
RUE DVT
Thoracic aortic ectasia
Mixed hyperlipidemia
Sleep apnea
Atrial tachycardia
Paroxysmal Atrial Fibrillation on Eliquis
Hypothyroidism
Right Retina Detachment
Assessment and plan:
#1. Acute hypoxic respiratory failure, suspect ILD
- CT scan reviewed, suggestive of interstitial lung disease predominantly in the lower lobes
-Radiological features are not typical for UIP. Presence of groundglass changes suggestive of ongoing inflammation, ? NSIP
-Right heart cath reviewed, normal wedge pressure essentially rules out volume overload as etiology for groundglass opacities
-Discussed with patient and patient's daughter at bedside, will pursue workup for connective tissue disorders, RA panel, NAOMI, CK level etc.
-No history of exposure to birds, mold at home or pets
-Initiated prednisone 60 mg daily with a trial to lower by 10 mg every 5 days.
-Patient will be seen in pulmonary clinic in the next few weeks, if he responds favorably to prednisone, considering presence of groundglass changes, we will consider initiation of mycophenolate as outpatient
-If patient does not respond favorably, may consider additional workup including a cryobiopsy for further evaluation of parenchyma
-Patient has never smoked in his life and no prior diagnosis of COPD or asthma. Unclear if any benefit to inhaler therapies
-Patient will need 6-minute walk test, full pulmonary function testing including lung volumes and diffusion capacity assessment as outpatient.
-Will arrange outpatient follow-up with [facility] pulmonary clinic
#2. Mild Pulmonary HTN
- Mean pulmonary artery pressure 22, only minimally elevated with elevated PVR, 3.4
- Essentially mild precapillary pulmonary hypertension, Group I or group III related to underlying ILD and hypoxia
- Depending upon clinical course may consider a trial of vasodilators as outpatient however Group 1 PAH would not explain interstitial changes noted on the imaging.
#3. Adrenal insufficiency with baseline steroid dependence
- Since patient has been started on prednisone, hydrocortisone has been placed on hold
- Discussed with hospitalist team, once patient is down to 10 mg of prednisone a day, he should continue that dose until evaluated as outpatient
Total time spent on this consultation/encounter __42__ minutes which includes review of history, physical exam, medications, laboratory data, personal review of imaging, extensive review of outpatient records, discussion with care team and
respiratory therapy.
Diagnostic Data
Chest X-Ray: 02/25/25- No acute cardiopulmonary process.
02/28/25-There is increased interstitial opacification as well as increased left basilar airspace opacity. Findings may represent edema/atelectasis or pneumonia.
CT Scan: CHEST 02/25/25- No evidence of central pulmonary embolism. Some mild chronic interstitial changes again seen bilaterally, predominantly in the lower lobes. Superimposed mild prominence of the interstitium and minor widespread bilateral
ground-glass opacification, nonspecific, possibly representing acute pulmonary edematous changes. Stable mild aneurysmal dilatation of the ascending thoracic aorta at 4.1 cm.
Echo: 06/07/24- Normal left ventricular size, wall thickness and systolic function. No regional wall motion abnormalities are seen. LV ejection fraction is 53% by Cabrales's biplane method of discs. Normal diastolic function. Normal right ventricular
size and function. Mitral annular calcification. Mild mitral regurgitation. Aortic sclerosis without stenosis. Dilated aortic root measuring 4.3 cm at the sinuses of Valsalva; 3.9 cm at the sinotubular junction and 4.1 cm in the ascending aorta.
Compared to the previous echo 01/31/24, there is no significant change.
PFT 02/26/25: FEV1 2.28L 75%, FVC 2.69L 65%, ratio 85. Post FEV1 2.31L 76%, no BD response. TLC 5.79L 77%, DLCO 22% (mild restriction, severe diffusion impairment)
Reports and relevant images were personally reviewed.
Total time spent on this consultation __51__ minutes which includes review of history, physical exam, medications, laboratory data, personal review of imaging, extensive review of outpatient records, discussion with care team and respiratory therapy.
Subjective Data
-
Date of Service:
Date of Service: March 03, 2025
Chief Complaint: Pulmonary Follow Up
Subjective:
Patient comfortably lying in bed in no acute distress.
Review of Systems
Genitourinary: Other (No new symptoms reported.)
Objective Data
Data Reviewed
Vital Signs / I&O / Oxygen:
Vital Signs
Temp Pulse Resp BP Pulse Ox
97.6 F 80 23 118/62 99
03/03/25 16:17 03/03/25 16:17 03/03/25 16:17 03/03/25 16:17 03/03/25 16:17
Intake and Output
03/02/25 03/03/25 03/04/25
06:59 06:59 06:59
Intake Total 720 / 720 1460 / 1460
Output Total 650 / 650 625 / 625
Balance 70 / 70 835 / 835
SaO2 99
Nasal Cannula flow liters per 2
minute
Physical Exam
General: Comfortable and Other (NAD, weak appearing)
HEENT: Normocephalic, Anicteric and Moist Mucous Membranes
Cardiovascular: S1-S2 and Regular Rhythm
Respiratory: Crackles (Inspiratory Rales on exam) and Non-Labored Respirations
GI: Soft, Non Distended and Non Tender
Neurology: Awake, Alert, Oriented and No Motor Deficits
Skin: Warm, Dry and Good Color
Labs/Micro/Reports
Lab Data
03/03/25 06:39
03/03/25 06:39
Microbiology
02/25/25 05:57 Blood/Venous Blood Culture - Final
No Growth - Final Report
02/25/25 05:57 Blood/Venous Blood Culture - Final
No Growth - Final Report
[2025-03-03 19:00] VITALS: BP 118/66
[2025-03-03] MEDS: DESENEX/MITRAZOL/ZEASORB TOPICAL (20:15)
--- NOTE | 2025-03-03 20:15 | PTCARENOTE ---
at 0730, patient rang call curtis and verbalized that he had to leave today as he had family emergency and needed to take care of his son with rain injuries who has seizures. He said, 'Dr. Tirado needs to come here now!'. I explained to patient that he
is not ready for discharge and will likely need home oxygen that will need to be ordered. notified Dr. Busch and Rudi Aguilar nursing mainspring fabrication supervisor and made patient aware that he would need to sign out AMA and that since he is not medically clear for
discharge, home oxygen would not be able to be arranged yet. Also, patient verbalized that he he had not been bathed since he's been here and room is a mess and fecal matter on floor. at [id number], after nursing mainspring fabrication supervisor, Dr. Busch and Lexi
Adán, case management spoke with patient. patient agreed to stay one more day. GAVIOTA James assisted patient with partial bath and mouth care. His room was de cluttered and had his daughter take home his soiled clothing with dried fecal matter on
it and house keeping cleaned room. patient verbalized and said, 'Thank you'. will continue to monitor.
[2025-03-03 23:00] VITALS: BP 113/60
[2025-03-04] MEDS: OCUFLOX 1 DROP RIGHT EYE ×5 (01:25→17:48)
[2025-03-04 03:00] VITALS: BP 116/67
--- NOTE | 2025-03-04 05:42 | PTCARENOTE ---
Patient greeted at start of shift with off-going RN. Visitor noted to be present at bedside upon entering room. While addressing patient to ascertain current status the visitor began answer questions for patient and became increasingly passive
aggressive toward this senior underwriter and off going RN. The guest eventually pointed out plastic containers that had been placed on window ledge and verbalizing 'I'm not sure why there are two of these in the trash when there should have been one used.'
Conversations were then directed at timeliness and frequency of medication administration, visitor was assured all efforts would be made to administer all medications as ordered by physicians.
[2025-03-04] MEDS: NON-FORMULARY ITEM 1 DROP OPHTH ×5 (05:59→17:49)
[2025-03-04] MEDS: SYNTHROID 50 MCG PO (05:59)
[2025-03-04 06:00] VITALS: BMI 25.2
[2025-03-04 07:00] VITALS: BP 123/69
[2025-03-04] MEDS: SYMBICORT 80/4.5 MCG INHALER 2 PUFF INH (07:49)
[2025-03-04 08:13] LABS: Hematocrit 35.6 % (39.0-52.0); Hemoglobin 12.3 g/dL (13.0-18.0); Mean Corp Hgb Conc. 34.6 g/dL (33.0-37.0); Mean Corpuscular Volume 93.4 fL (80.0-94.0); Nucleated Red Blood Cells % 0 % (-); Platelet Count 171 10^3/uL (130-400); Red Cell Dist. Width 15.5 % (11.5-14.5)
[2025-03-04 08:50] LABS: Blood Urea Nitrogen 30 mg/dl (9-20); Calcium 9.5 mg/dl (8.4-10.2); Carbon Dioxide 19 mmol/L (22-30); Chloride 102 mmol/L (98-107); Estimated Creatinine Clearance 43 ml/min; Glucose 118 mg/dl (70-99); Potassium 3.6 mmol/L (3.5-5.1); Sodium 134 mmol/L (135-145); eGFR 46.77
[2025-03-04] MEDS: CRESTOR 40 MG PO (08:58)
[2025-03-04] MEDS: DELTASONE 60 MG PO (08:59)
[2025-03-04] MEDS: LOPRESSOR 12.5 MG PO (08:59)
[2025-03-04] MEDS: NSS (PRESERVATIVE FREE) 10 ML IV (08:59)
[2025-03-04] MEDS: CIPRO 500 MG PO (08:59)
[2025-03-04] MEDS: PEPCID 20 MG PO (08:59)
[2025-03-04] MEDS: NORVASC 10 MG PO (08:59)
[2025-03-04] MEDS: PROTONIX IV 40 MG IV (08:59)
[2025-03-04] MEDS: DESENEX/MITRAZOL/ZEASORB 1 APPLIC TOPICAL (09:03)
[2025-03-04] MEDS: TYLENOL 650 MG PO (09:14)
[2025-03-04] MEDS: FLUSH (NSS) 2 FLUSH IV (09:16)
--- NOTE | 2025-03-04 09:27 | W.PN.PUL3 ---
Today's Communication / Plan
-
Okay to discharge on prednisone 60 mg
Would wean by 10 mg every 5 days and then down to 10 mg and maintain this dose until seen by pulmonary
Will need to be discharged on GERD therapy as well
Strict instructions to follow-up in the pulmonary office in 2 weeks
Will also likely require home oxygen, set up as indicated
Disposition efforts
Assessment
-
Patient is an 79-year-old male with previous history of prostate cancer, A-fib, adrenal insufficiency presented to ER for generalized weakness and shortness of breath. He states symptoms have been ongoing since May 2024 when he started
taking Eliquis for A-fib. He has had increasing fatigue, shortness of breath, chest discomfort with progressive weakness and decreased appetite over the past 2 to 3 days.
He is noted to have hypoxemia during this admission placed on [address] obtained indicating significant bronchiectasis with possible underlying ILD. Radiographic changes have been present dating back to 2012 but have been steadily
worsening. We are consulted for eval 02/25/25.
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
Adrenal Insufficiency
Alcohol abuse
Chronic renal insufficiency, stage II (mild)
Essential (primary) hypertension
History of Malignant Melanoma
History of Prostate Cancer
RUE DVT
Thoracic aortic ectasia
Mixed hyperlipidemia
Sleep apnea
Atrial tachycardia
Paroxysmal Atrial Fibrillation on Eliquis
Hypothyroidism
Right Retina Detachment
Assessment and plan:
#1. Acute hypoxic respiratory failure, suspect ILD
- CT scan reviewed, suggestive of interstitial lung disease predominantly in the lower lobes
-Radiological features are not typical for UIP. Presence of groundglass changes suggestive of ongoing inflammation, ? NSIP
-Right heart cath reviewed, normal wedge pressure essentially rules out volume overload as etiology for groundglass opacities
-Discussed with patient and patient's daughter at bedside, will pursue workup for connective tissue disorders, RA panel, NAOMI, CK level etc.
-No history of exposure to birds, mold at home or pets
-Initiated prednisone 60 mg daily with a trial to lower by 10 mg every 5 days.
-Patient will be seen in pulmonary clinic in the next few weeks, if he responds favorably to prednisone, considering presence of groundglass changes, we will consider initiation of mycophenolate as outpatient
-If patient does not respond favorably, may consider additional workup including a cryobiopsy for further evaluation of parenchyma
-Patient has never smoked in his life and no prior diagnosis of COPD or asthma. Unclear if any benefit to inhaler therapies
-Patient will need 6-minute walk test, full pulmonary function testing including lung volumes and diffusion capacity assessment as outpatient.
-Will arrange outpatient follow-up with [facility] pulmonary clinic
#2. Mild Pulmonary HTN
- Mean pulmonary artery pressure 22, only minimally elevated with elevated PVR, 3.4
- Essentially mild precapillary pulmonary hypertension, Group I or group III related to underlying ILD and hypoxia
- Depending upon clinical course may consider a trial of vasodilators as outpatient however Group 1 PAH would not explain interstitial changes noted on the imaging.
#3. Adrenal insufficiency with baseline steroid dependence
- Since patient has been started on prednisone, hydrocortisone has been placed on hold
- Discussed with hospitalist team, once patient is down to 10 mg of prednisone a day, he should continue that dose until evaluated as outpatient
Patient was confused with regards to plans for follow-up
Patient should be decreased with prednisone as above, should follow-up with pulmonary in the next 2 weeks
Information provided in chart for follow-up instructions
Would also set up with home oxygen as indicated
Diagnostic Data
Chest X-Ray: 02/25/25- No acute cardiopulmonary process.
02/28/25-There is increased interstitial opacification as well as increased left basilar airspace opacity. Findings may represent edema/atelectasis or pneumonia.
CT Scan: CHEST 02/25/25- No evidence of central pulmonary embolism. Some mild chronic interstitial changes again seen bilaterally, predominantly in the lower lobes. Superimposed mild prominence of the interstitium and minor widespread bilateral
ground-glass opacification, nonspecific, possibly representing acute pulmonary edematous changes. Stable mild aneurysmal dilatation of the ascending thoracic aorta at 4.1 cm.
Echo: 06/07/24- Normal left ventricular size, wall thickness and systolic function. No regional wall motion abnormalities are seen. LV ejection fraction is 53% by Cabrales's biplane method of discs. Normal diastolic function. Normal right ventricular
size and function. Mitral annular calcification. Mild mitral regurgitation. Aortic sclerosis without stenosis. Dilated aortic root measuring 4.3 cm at the sinuses of Valsalva; 3.9 cm at the sinotubular junction and 4.1 cm in the ascending aorta.
Compared to the previous echo 01/31/24, there is no significant change.
PFT 02/26/25: FEV1 2.28L 75%, FVC 2.69L 65%, ratio 85. Post FEV1 2.31L 76%, no BD response. TLC 5.79L 77%, DLCO 22% (mild restriction, severe diffusion impairment)
Reports and relevant images were personally reviewed.
Total time spent on this consultation __51__ minutes which includes review of history, physical exam, medications, laboratory data, personal review of imaging, extensive review of outpatient records, discussion with care team and respiratory therapy.
Subjective Data
-
Date of Service:
Date of Service: March 04, 2025
Chief Complaint: Pulmonary Follow Up
Subjective:
Patient is feeling breathing has improved. He has mild cough but denies hemoptysis, chest pain. Conversant but confused about plan moving forward
Objective Data
Data Reviewed
Vital Signs / I&O / Oxygen:
Vital Signs
Temp Pulse Resp BP Pulse Ox
98.1 F 72 18 123/69 96
03/04/25 07:00 03/04/25 08:59 03/04/25 07:52 03/04/25 08:59 03/04/25 07:52
Intake and Output
03/03/25 03/04/25 03/05/25
06:59 06:59 06:59
Intake Total 1460 / 1460 1260 / 1260
Output Total 625 / 625 425 / 425
Balance 835 / 835 835 / 835
SaO2 96
Nasal Cannula flow liters per 4
minute
Physical Exam
General: Comfortable and Other (NAD, weak appearing)
HEENT: Normocephalic, Anicteric and Moist Mucous Membranes
Cardiovascular: S1-S2 and Regular Rhythm
Respiratory: Crackles (Inspiratory Rales on exam) and Non-Labored Respirations
GI: Soft, Non Distended and Non Tender
Neurology: Awake, Alert, Oriented and No Motor Deficits
Skin: Warm, Dry, Good Color and Bruising (Few scattered bruising)
Labs/Micro/Reports
Lab Data
03/04/25 07:45
03/04/25 07:45
Microbiology
03/03/25 21:40 Feces/Stool C. difficile GDH Antigen & Toxins - Final
Negative for toxigenic C.difficile
02/25/25 05:57 Blood/Venous Blood Culture - Final
No Growth - Final Report
02/25/25 05:57 Blood/Venous Blood Culture - Final
No Growth - Final Report
--- NOTE | 2025-03-04 10:05 | CM ---
CM following for home O2 needs. Yesterday he walked 50' with O2 sat 87%, however recovery was not documented.
CM to request new home O2 assessment.
[2025-03-04 11:00] VITALS: BP 120/57
[2025-03-04 11:52] LABS: Rheumatoid Agglutinin Less Than 10 IU (<10 IU)
--- NOTE | 2025-03-04 13:51 | W.PN.HOSP.TC ---
Addendum entered and electronically signed by Steven Hays MD 03/04/25 14:45:
Patient is in need of oxygen at 2 liters/minute via nasal cannula continuously due to pulse oximetry of 86% on room air at rest. Oxygen will help to improve hypoxemia.
Patient is mobile within the home. Diuretics thearpy is ineffective in treating hypoxemia related symptoms. Oxygen is needed to improve symptoms.
Original Note:
Today's Communication/Plan
-
Home oxygen testing
discharge planning for home
Assessment / Plan
Assessment / Plan
RUE Cellulitis
Sepsis secondary to the above
- Patient presents with tachycardia, tachypnea - borderline leukocytosis and temperature - and evidence of RUE cellulitis.
- ED ordered cx and shows pseudomonas, changed to ciprofloxacin to complete course. Cellulitis appears to be improving
- Follow for clinical improvement.
Acute hypoxic respiratory failure suspect multifactorial secondary to ILD and acute congestive heart failure with preserved ejection fraction
- Prior h/o RUE DVT (s/p surgery / lymph node dissection / etc) and stopped his Eliquis 3 weeks ago.
- Echo with mildly dilated aortic root, preserved EF
- Patient reports symptoms started 05/2024 and blames Eliquis - but this is also when his A-Fib started / was diagnosed.
- Outpatient bell CT with dilation of ascending aorta, 4.1 cm. In the bilateral lower lobes there are mild changes of fibrosis along with dependent aspect of the lungs with associated mild clinical bronchiectasis changes.
- Speech evaluated, no signs of aspiration
- Pulmonary following. PFTs 02/26 with severe diffusion impairment. Currently on inhaler for. Discussed with pulmonary, will need albuterol as needed and prednisone, start with 60 mg daily and decrease by 10 every 5 days and remain on 10 until
further instruction from pulmonary
- s/p right heart cath 03/01 with normal pressures. Does have high pulmonary vascular resistance, Chest x-ray 02/28 with increased interstitial opacification.
[place]
- Renal/bladder ultrasound without hydro
- Monitor with diuresis
Hypokalemia
- Replete as needed
Hyponatremia
- resolved
Non-Gapped Metabolic Acidosis
- Unclear etiology
Adrenal Insufficiency
- Complaints of general weakness, gait issues, etc potentially due to relative adrenal insufficiency.
Used to be on hydrocortisone which is now stopped since on prednisone. Discussed with pulmonary they want patient to go on 10 mg prednisone after the taper is done and they will decide further
- Follow BP, labs / lytes, etc for any evidence of persistent adrenal insufficiency.
- Pulse dose steroids if any evidence of decompensation.
Benign Hypertension
- Stable. Continue amlodipine with holding parameters.
Hypothyroidism
- Continue current T4 supplementation.
TSH 3.4
Right Retina Detachment
- Followed previously at [facility] but now followed locally (recent change).
- On multiple eye drops
- Sutures remain in place in the R eyelids.
Right upper extremity chronic lymphedema
History of Malignancy Melanoma
History of Prostate Cancer
- Recent CT showed no evidence of recurrence.
- s/p axillary LN dissection on the R which predisposes to cellulitis, lymphedema, etc.
Moderate Protein Calorie Malnutrition
DVT Prophylaxis -lovenox
Anticipated Discharge: Today
Subjective/Interval History
-
Date of Service: March 04, 2025
Denies of having any shortness of breath/cough
No episodes of chest pain
Denies any other problems
Objective Data
-
Labs:
Laboratory Results
03/04/25
07:45
WBC 8.1
Hgb 12.3 L
Hct 35.6 L
Plt Count 171 D
Sodium 134 L
Potassium 3.6
Chloride 102
Carbon Dioxide 19 L
BUN 30 H
Creatinine 1.5 H
Glucose 118 H
Calcium 9.5
Vital Signs:
Vital Signs
Temp Pulse Resp BP Pulse Ox
97.5 F 57 19 120/57 99
03/04/25 11:00 03/04/25 11:00 03/04/25 11:00 03/04/25 11:00 03/04/25 11:00
I&O
03/03/25 03/04/25 03/05/25
06:59 06:59 06:59
Intake Total 1460 / 1460 1260 / 1260
Output Total 625 / 625 425 / 425
Balance 835 / 835 835 / 835
Review of Systems
-
Respiratory: Reports No Symptoms
Cardiac: Reports No Symptoms
Abdomen/GI: Reports No Symptoms
Physical Exam
-
General: Comfortable and Obese
HEENT: Oxygen (3L NC)
Respiratory: Clear to Auscultation
Cardiac: Regular Rhythm and S1/S2; Negative Murmur or Rub
GI: Soft, Nontender and Nondistended
Musculoskeletal: No Edema
Neuro: Awake, Alert, Oriented, No Motor Deficits and Nonfocal/Grossly Intact
Psych: Calm
[2025-03-04 15:00] VITALS: BP 112/60
--- NOTE | 2025-03-04 15:03 | CM ---
New home O2 assessment completed. CM contacted [facility] for home O2.
Plan: Pt for discharge to home once home O2 has been delivered bedside. Anticipate delivery by 5PM today.
--- NOTE | 2025-03-04 15:19 | PTCARENOTE ---
Pt c/o loose stools. made aware, new order provided, see MAR.
[2025-03-04] MEDS: IMODIUM 2 MG PO (15:29)
[2025-03-04 16:33] VITALS: BP 112/63; BP 77/51; BP 93/60; PULSE 102; PULSE 111; PULSE 79
--- NOTE | 2025-03-04 17:43 | PTCARENOTE ---
Woman at bedside increasingly angry and agitated. Woman stated, 'We live together'. Woman informed this RN that eye drops 'Oxervate' are supposed to be administered 6 times in 12 hours, every 2 hours, starting at 6 am and ending at 6 pm, and that
vial is supposed to be open once in morning expires in 12 hours. Woman in hallway raising voice at this RN. Woman stated, 'I am going to be reporting this, I have told multiple nurses and no one has listened to me'. Finished Hardware Erector made aware.
[2025-03-04] MEDS: LOVENOX 40 MG SC (17:47)
[2025-03-04] MEDS: NON-FORMULARY ITEM OPHTH (17:52)
[2025-03-05 02:13] LABS: ANA, IgG Reflex to HEp-2 None Detected (None Detected)
--- NOTE | 2025-03-05 18:03 | W.DCSUMMARY ---
Discharge Summary
Discharge Data
Date of Admission: 02/25/25
Date of Discharge: 03/04/25
-
Pending Results: No
Hospital Course
Discharging Physician : Dr Steven Hays
Disposition : To home
Primary care physician : Dr Ryan Peguero
Principal Discharge diagnosis :
Right upper extremity cellulitis
Acute hypoxic respiratory failure
Presume interstitial lung disease
Acute on chronic diastolic congestive heart failure
Acute kidney injury
Electrolyte imbalance
Chronic Discharge diagnosis :
History of adrenal insufficiency
Essential hypertension
Hypothyroidism
History of right retinal detachment
Chronic lymphedema
History of malignant melanoma
History of prostate cancer
Moderate protein calorie malnutrition
Hospital Course :
Patient is a 79-year-old male with mentioned past medical history came to ER with new onset of generalized weakness and exertional dyspnea. Patient was also complaining to have right upper extremity swelling. On exam patient was found to having
some digoxin for cellulitis and sepsis from it. Patient was started on empiric antibiotic. Patient has a previous history of right upper extremity DVT and has finished course of Eliquis 3 weeks back. Patient finished course of antibiotic in the
hospital. Patient also was having new hypoxia and CT scan of lung was showing bilateral changes suggestive of interstitial lung disease/fibrosis. Pulmonology was involved in care and patient did PFT which showed diffusion impairment. Patient was
started on nebulizer therapy and steroids. For part of volume assessment patient underwent right heart catheterization which showed normal filling pressures. Patient was provided empiric course of IV diuretics during the stay as well. Patient had
slow improvement in symptoms and was able to be weaned off oxygen. Patient had some acute kidney injury and renal bladder ultrasound did not show major abnormality. At discharge patient was provided a tapering course of steroids with patient plan
to follow-up with pulmonology in office. Patient is on home hydrocortisone for history of chronic adrenal insufficiency which can be resumed after completion of prednisone. Patient was discharged home after medical stabilization.
Important imaging findings :
None
Procedure findings :
None
Discharge Plan
-
Patient Disposition: Home with Home Care
Discharge Diagnosis/Procedures: Right upper extremity cellulitis, Hypoxic resp failure, [place], possible ILD, HF exacerbation
Condition: Fair
Diet: 2 Gram Sodium and Diabetic, Carb Controlled
Activity: As tolerated
Driving Restrictions: No driving
Bathing Restrictions: OK to Shower
Blood Work: BMP in 1 week
Other Services: VN and PT
Specialty Instructions: Weigh Daily- Call MD for wt gain/loss 3 lbs overnight/5 lbs in 1 week
Instructions: *[facility] Heart Failure Instructions
Referrals:
Ryan Peguero MD [Family Provider, Family Practice] - in one week
Rosey Bernard DO [Active, Pulmonary Medicine]
Referral Note: 2-3 weeks, 6MWT
Please set up with [facility] or Dr Bernard
Prescriptions:
New
metoprolol tartrate 25 mg tablet
12.5 mg PO BID Qty: 30 2RF
prednisone 10 mg Tablet
See Rx Instructions .ROUTE .COMPLEX Qty: 115 0RF
Rx Instructions:
Take By Mouth:
60 mg daily x5 days, 50 mg daily x5 days,
40 mg daily x5 days, 30 mg daily x5 days,
20 mg daily x5 days THEN 10mg daily
pantoprazole 40 mg tablet,delayed release (DR/EC)
40 mg PO DAILY Qty: 30 0RF
Continued
levothyroxine 50 mcg tablet
50 mcg PO DAILY AT 0700
rosuvastatin 40 mg tablet
40 mg PO DAILY
febuxostat 40 mg tablet
40 mg PO DAILY
acetaminophen [Tylenol] 325 mg Tablet
650 mg PO Q4HPRN PRN (Reason: MILD PAIN)
ofloxacin 0.3 % Drops
1 drp RIGHT EYE Q4H
amlodipine [Norvasc] 10 mg Tablet
10 mg PO DAILY
Oxervate 0.002 % Drops
1 drp OPHTHALMIC (EYE) 6XD
Held
hydrocortisone 5 mg Tablet
10 mg PO DAILY
Hold Instructions: Resume on 03/18/25. HOLD while on prednisone
hydrocortisone 5 mg Tablet
5 mg PO QPM
Hold Instructions: Resume on 03/18/25. HOLD while on prednisone
Discharge Orders:
Discharge Patient (As Directed); Ordered 03/04/25
Ordered By: Steven Hays
Care Plan Goals
Care Plan Goals:
Problem: Readiness for enhanced knowledge related to diagnosis and treatment plan
Goal: Understand your diagnosis and treatment plan needs, including medications if applicable.
Instructions: Know your diagnosis, underlying causes and treatment plan options, including medications if applicable. Consult with your health care team to learn about your diagnosis and treatment plan, including medications if applicable.
Discharge Date and Time
Discharge Date/Time: 03/04/25 18:49
Print Language: PASHTO
== END 2025-03-04 18:49 | disposition home health service (06) | DRG 871 ==
LOC: 3 WEST ACU 07:21
PROVIDERS: Internal Medicine; Internal Medicine Interventional Cardiology; Physician Assistant; ADMITTING PHYSICIAN Hospitalist; ATTENDING PHYSICIAN Hospitalist; CONSULT PHYSICIAN Internal Medicine; CONSULT PHYSICIAN Internal Medicine Cardiovascular Disease; EMERGENCY PHYSICIAN Emergency Medicine; FAMILY PHYSICIAN Family Medicine
PROC: 4A023N6 Measurement of Cardiac Sampling and Pressure, Right Heart, Percutaneous Approach (ICD-10-PCS; 2025-03-01)
DX: A41.9 Sepsis, unspecified organism (principal); I50.31 Acute diastolic (congestive) heart failure; J96.01 Acute respiratory failure with hypoxia; L03.113 Cellulitis of right upper limb; J84.9 Interstitial pulmonary disease, unspecified; E87.1 Hypo-osmolality and hyponatremia; N17.9 Acute kidney failure, unspecified; E87.20 Acidosis, unspecified; E27.40 Unspecified adrenocortical insufficiency; I13.0 Hypertensive heart and chronic kidney disease with heart failure and stage 1 through stage 4 chronic kidney disease, or unspecified chronic kidney disease; H33.21 Serous retinal detachment, right eye; E44.0 Moderate protein-calorie malnutrition; I47.20 Ventricular tachycardia, unspecified; I5A Non-ischemic myocardial injury (non-traumatic); Z86.718 Personal history of other venous thrombosis and embolism; J47.9 Bronchiectasis, uncomplicated; E87.6 Hypokalemia; N18.2 Chronic kidney disease, stage 2 (mild); E03.9 Hypothyroidism, unspecified; I89.0 Lymphedema, not elsewhere classified; Z85.820 Personal history of malignant melanoma of skin; Z85.46 Personal history of malignant neoplasm of prostate; Z68.25 Body mass index [BMI] 25.0-25.9, adult; I48.0 Paroxysmal atrial fibrillation; K59.00 Constipation, unspecified; Z88.1 Allergy status to other antibiotic agents; Z88.5 Allergy status to narcotic agent; Z91.041 Radiographic dye allergy status; Z79.890 Hormone replacement therapy; E78.2 Mixed hyperlipidemia; G47.30 Sleep apnea, unspecified; D69.6 Thrombocytopenia, unspecified; I49.3 Ventricular premature depolarization; Z79.01 Long term (current) use of anticoagulants; Z79.899 Other long term (current) drug therapy; Z80.0 Family history of malignant neoplasm of digestive organs; Z92.3 Personal history of irradiation; Z96.643 Presence of artificial hip joint, bilateral
CPT/HCPCS: 71045; 71046; 71275; 76770; 80048; 80053; 81003; 81015; 82550; 83605; 83735; 83880; 84443; 84484; 85025; 86038; 86430; 87040; 87070; 87077; 87186; 87205; 87324; 87449; 87502; 87811; 92610; 93005; 93306; 93451; 94060; 94640; 94727; 94729; 96374; 97163; 97530; 99152; 99285; C1894; Q9950; Q9967